=== PATIENT | male | born 1940 | race Caucasian/White ===

== ENCOUNTER 2018-11-06 17:13 | Inpatient (IN) ==
[2018-11-06] MEDS ORDERED: SODIUM CHLORIDE 0.9% 1000ML 250 ML IV ONE ×2 (17:32→21:56)
--- NOTE | 2018-11-06 17:48 | Emergency Department Note ---
History of Present Illness General Chief complaint: Weakness Stated complaint: CONFUSION, LETHERGY, DIFF. AMBULATING Time Seen by Provider: 11/06/18 17:24 History of Present Illness This patient is a 78-year-old male who presents to the emergency department via ALS for evaluation of confusion that has been noted over the last 4 days. The patient was recently discharged to the family his care from [facility] on . Since he has been home, the patient's family have noted confusion, combativeness and he has been intermittently complaining of chest pain. Currently, the patient is complaining of chest pain that is sharp in nature. It is intermittent. He denies any shortness of breath. No headache. No abdominal pain. No nausea. No fever or chills. The patient had an MVR and CABG x4 performed at [facility] in [place] 1 month ago today. Patient 's family is unsure whether it is a porcine on mechanical valve. They say that he is not on anticoagulation. They deny any recent trauma. Home Medications Home Medications Medication Instructions Recorded Confirmed Type Lactobacillus acidoph-L.bulgar 1 tab PO DAILY 11/06/18 11/06/18 History [Lactinex] acetaminophen 650 mg PO Q6H PRN 11/06/18 11/06/18 History amiodarone 400 mg PO DAILY 11/06/18 11/06/18 History aspirin [Aspirin Low Dose] 81 mg PO DAILY 11/06/18 11/06/18 History atorvastatin 40 mg PO DAILY 11/06/18 11/06/18 History calcium citrate-vitamin D3 1 tab PO DAILY 11/06/18 11/06/18 History fluoxetine 40 mg PO DAILY 11/06/18 11/06/18 History furosemide 40 mg PO DAILY 11/06/18 11/06/18 History ipratropium-albuterol 3 ml INHALATION QID 11/06/18 11/06/18 History lorazepam 0.5 mg PO Q8H PRN 11/06/18 11/06/18 History metoprolol tartrate 12.5 mg PO BID 11/06/18 11/06/18 History mirabegron [Myrbetriq] 25 mg PO DAILY 11/06/18 11/06/18 History multivitamin [Daily-Kirill] 1 tab PO DAILY 11/06/18 11/06/18 History oxycodone 5 mg PO Q4H PRN 11/06/18 11/06/18 History pantoprazole 40 mg PO DAILY 11/06/18 11/06/18 History potassium chloride 20 meq PO DAILY 11/06/18 11/06/18 History Allergies Allergy/AdvReac Type Severity Reaction Status Date / Time No Known Allergies Allergy Unverified 11/06/18 19:06 Past Med/Surg History Surgical History S/P MVR (mitral valve replacement) Social History Current Living Situation: Family Feels Safe at Home: Yes Safety Concerns: Feels Safe At This Time Smoking Status: Unknown if ever smoked Hx Alcohol Use: No Hx Substance Use: No Beliefs That Will Affect Care: None Preferred Language: Faroese Communication Ability: Effective Behavioral Psychologist Required: No Review of Systems A total of 10 systems reviewed and were otherwise negative This was performed with the patient's family who was at the bedside. Physical Exam Vital Signs Vital Signs - 24 hr 11/06/18 17:29 11/06/18 17:33 11/06/18 17:42 Temperature 36.3 C L Temperature Source Oral Sepsis Recent Fever Within 48 Hours No Sepsis New/Unexplained Change in Mental Status No Sepsis Action Taken by Nursing No Action Required Pulse Rate - Lying Pulse Rate - Sitting Pulse Rate 95 H 94 H 96 H Pulse Rate [Right Finger] Pulse Rate from SpO2 Sensor 97 H 96 H Pulse Rhythm Regular Pulse Rhythm [Right Finger] Pulse Strength Normal Pulse Strength [Right Finger] Respiratory Rate 24 22 25 H Respiratory Effort / Characteristics Non-Labored Spontaneous Respiratory Depth Normal Respiratory Pattern Regular Blood Pressure - Lying Blood Pressure - Sitting Blood Pressure 131/90 131/90 Blood Pressure [Right Arm] Blood Pressure Mean 103 103 Blood Pressure Mean [Right Arm] Blood Pressure Position Sitting Blood Pressure Position [Right Arm] Pulse Oximetry 95 93 96 Oxygen Delivery Method Room Air Oxygen Flow Rate 11/06/18 18:00 11/06/18 18:22 11/06/18 18:30 Temperature Temperature Source Sepsis Recent Fever Within 48 Hours Sepsis New/Unexplained Change in Mental Status Sepsis Action Taken by Nursing Pulse Rate - Lying Pulse Rate - Sitting Pulse Rate 94 H 93 H 92 H Pulse Rate [Right Finger] Pulse Rate from SpO2 Sensor 94 H Pulse Rhythm Pulse Rhythm [Right Finger] Pulse Strength Pulse Strength [Right Finger] Respiratory Rate 21 22 26 H Respiratory Effort / Characteristics Respiratory Depth Respiratory Pattern Blood Pressure - Lying Blood Pressure - Sitting Blood Pressure 121/83 Blood Pressure [Right Arm] Blood Pressure Mean 95 Blood Pressure Mean [Right Arm] Blood Pressure Position Blood Pressure Position [Right Arm] Pulse Oximetry 97 Oxygen Delivery Method Oxygen Flow Rate 11/06/18 18:31 11/06/18 18:32 11/06/18 19:00 Temperature Temperature Source Sepsis Recent Fever Within 48 Hours Sepsis New/Unexplained Change in Mental Status Sepsis Action Taken by Nursing Pulse Rate - Lying Pulse Rate - Sitting Pulse Rate 92 H 91 H 92 H Pulse Rate [Right Finger] Pulse Rate from SpO2 Sensor 90 92 H Pulse Rhythm Pulse Rhythm [Right Finger] Pulse Strength Pulse Strength [Right Finger] Respiratory Rate 18 20 21 Respiratory Effort / Characteristics Respiratory Depth Respiratory Pattern Blood Pressure - Lying Blood Pressure - Sitting Blood Pressure 122/81 Blood Pressure [Right Arm] Blood Pressure Mean 94 Blood Pressure Mean [Right Arm] Blood Pressure Position Blood Pressure Position [Right Arm] Pulse Oximetry 98 Oxygen Delivery Method Oxygen Flow Rate 11/06/18 19:30 11/06/18 19:31 11/06/18 19:32 Temperature Temperature Source Sepsis Recent Fever Within 48 Hours Sepsis New/Unexplained Change in Mental Status Sepsis Action Taken by Nursing Pulse Rate - Lying Pulse Rate - Sitting Pulse Rate 93 H 92 H 93 H Pulse Rate [Right Finger] Pulse Rate from SpO2 Sensor 94 H 94 H Pulse Rhythm Pulse Rhythm [Right Finger] Pulse Strength Pulse Strength [Right Finger] Respiratory Rate 25 H 29 H 16 Respiratory Effort / Characteristics Respiratory Depth Respiratory Pattern Blood Pressure - Lying Blood Pressure - Sitting Blood Pressure 128/86 Blood Pressure [Right Arm] Blood Pressure Mean 100 Blood Pressure Mean [Right Arm] Blood Pressure Position Blood Pressure Position [Right Arm] Pulse Oximetry 89 L 87 L Oxygen Delivery Method Oxygen Flow Rate 11/06/18 20:00 11/06/18 20:41 11/06/18 21:00 Temperature Temperature Source Sepsis Recent Fever Within 48 Hours Sepsis New/Unexplained Change in Mental Status Sepsis Action Taken by Nursing Pulse Rate - Lying Pulse Rate - Sitting Pulse Rate 92 H 90 88 Pulse Rate [Right Finger] Pulse Rate from SpO2 Sensor 92 H Pulse Rhythm Pulse Rhythm [Right Finger] Pulse Strength Pulse Strength [Right Finger] Respiratory Rate 22 18 19 Respiratory Effort / Characteristics Respiratory Depth Respiratory Pattern Blood Pressure - Lying Blood Pressure - Sitting Blood Pressure 119/98 Blood Pressure [Right Arm] Blood Pressure Mean 105 Blood Pressure Mean [Right Arm] Blood Pressure Position Blood Pressure Position [Right Arm] Pulse Oximetry 95 Oxygen Delivery Method Oxygen Flow Rate 11/06/18 21:30 11/06/18 22:00 11/06/18 22:01 Temperature Temperature Source Sepsis Recent Fever Within 48 Hours Sepsis New/Unexplained Change in Mental Status Sepsis Action Taken by Nursing Pulse Rate - Lying Pulse Rate - Sitting Pulse Rate 86 88 89 Pulse Rate [Right Finger] Pulse Rate from SpO2 Sensor 89 Pulse Rhythm Pulse Rhythm [Right Finger] Pulse Strength Pulse Strength [Right Finger] Respiratory Rate 20 18 16 Respiratory Effort / Characteristics Respiratory Depth Respiratory Pattern Blood Pressure - Lying Blood Pressure - Sitting Blood Pressure 136/81 Blood Pressure [Right Arm] Blood Pressure Mean 99 Blood Pressure Mean [Right Arm] Blood Pressure Position Blood Pressure Position [Right Arm] Pulse Oximetry 97 Oxygen Delivery Method Oxygen Flow Rate 11/06/18 22:31 11/06/18 22:59 11/06/18 23:01 Temperature Temperature Source Sepsis Recent Fever Within 48 Hours Sepsis New/Unexplained Change in Mental Status Sepsis Action Taken by Nursing Pulse Rate - Lying Pulse Rate - Sitting Pulse Rate 87 85 Pulse Rate [Right Finger] Pulse Rate from SpO2 Sensor Pulse Rhythm Pulse Rhythm [Right Finger] Pulse Strength Pulse Strength [Right Finger] Respiratory Rate 19 17 Respiratory Effort / Characteristics Respiratory Depth Respiratory Pattern Blood Pressure - Lying Blood Pressure - Sitting Blood Pressure 133/101 H 121/85 Blood Pressure [Right Arm] Blood Pressure Mean 111 97 Blood Pressure Mean [Right Arm] Blood Pressure Position Blood Pressure Position [Right Arm] Pulse Oximetry 100 100 Oxygen Delivery Method Nasal Cannula Nasal Cannula Nasal Cannula Oxygen Flow Rate 2 2 2 11/06/18 23:32 11/07/18 00:01 11/07/18 00:31 Temperature Temperature Source Sepsis Recent Fever Within 48 Hours Sepsis New/Unexplained Change in Mental Status Sepsis Action Taken by Nursing Pulse Rate - Lying Pulse Rate - Sitting Pulse Rate 86 85 80 Pulse Rate [Right Finger] Pulse Rate from SpO2 Sensor Pulse Rhythm Pulse Rhythm [Right Finger] Pulse Strength Pulse Strength [Right Finger] Respiratory Rate 24 24 18 Respiratory Effort / Characteristics Respiratory Depth Respiratory Pattern Blood Pressure - Lying Blood Pressure - Sitting Blood Pressure 134/118 H 137/93 125/78 Blood Pressure [Right Arm] Blood Pressure Mean 123 107 93 Blood Pressure Mean [Right Arm] Blood Pressure Position Blood Pressure Position [Right Arm] Pulse Oximetry 100 100 100 Oxygen Delivery Method Nasal Cannula Nasal Cannula Nasal Cannula Oxygen Flow Rate 2 2 2 11/07/18 01:01 11/07/18 01:31 11/07/18 02:01 Temperature Temperature Source Sepsis Recent Fever Within 48 Hours Sepsis New/Unexplained Change in Mental Status Sepsis Action Taken by Nursing Pulse Rate - Lying Pulse Rate - Sitting Pulse Rate 81 81 78 Pulse Rate [Right Finger] Pulse Rate from SpO2 Sensor Pulse Rhythm Pulse Rhythm [Right Finger] Pulse Strength Pulse Strength [Right Finger] Respiratory Rate 19 18 18 Respiratory Effort / Characteristics Respiratory Depth Respiratory Pattern Blood Pressure - Lying Blood Pressure - Sitting Blood Pressure 131/86 135/81 138/86 Blood Pressure [Right Arm] Blood Pressure Mean 101 99 103 Blood Pressure Mean [Right Arm] Blood Pressure Position Blood Pressure Position [Right Arm] Pulse Oximetry 100 100 100 Oxygen Delivery Method Nasal Cannula Nasal Cannula Room Air Oxygen Flow Rate 2 2 11/07/18 03:27 11/07/18 07:03 11/07/18 07:22 Temperature 36.3 C L 36.4 C L Temperature Source Oral Oral Sepsis Recent Fever Within 48 Hours Sepsis New/Unexplained Change in Mental Status Sepsis Action Taken by Nursing Pulse Rate - Lying Pulse Rate - Sitting Pulse Rate Pulse Rate [Right Finger] 80 79 84 Pulse Rate from SpO2 Sensor Pulse Rhythm Pulse Rhythm [Right Finger] Regular Pulse Strength Pulse Strength [Right Finger] Normal Respiratory Rate 16 16 20 Respiratory Effort / Characteristics Non-Labored Spontaneous Non-Labored Spontaneous Respiratory Depth Normal Respiratory Pattern Regular Blood Pressure - Lying Blood Pressure - Sitting Blood Pressure Blood Pressure [Right Arm] 143/84 H 117/76 Blood Pressure Mean Blood Pressure Mean [Right Arm] 103 89 Blood Pressure Position Blood Pressure Position [Right Arm] Lying Lying Pulse Oximetry 100 97 96 Oxygen Delivery Method Nasal Cannula Room Air Nasal Cannula Oxygen Flow Rate 2 2 2 11/07/18 09:58 11/07/18 10:25 11/07/18 11:12 Temperature Temperature Source Sepsis Recent Fever Within 48 Hours Sepsis New/Unexplained Change in Mental Status Sepsis Action Taken by Nursing Pulse Rate - Lying 97 H Pulse Rate - Sitting 99 H Pulse Rate Pulse Rate [Right Finger] 84 Pulse Rate from SpO2 Sensor Pulse Rhythm Pulse Rhythm [Right Finger] Pulse Strength Pulse Strength [Right Finger] Respiratory Rate 16 Respiratory Effort / Characteristics SOB on Exertion Non-Labored Spontaneous Respiratory Depth Normal Respiratory Pattern Regular Blood Pressure - Lying 111/71 Blood Pressure - Sitting 117/79 Blood Pressure Blood Pressure [Right Arm] Blood Pressure Mean Blood Pressure Mean [Right Arm] Blood Pressure Position Blood Pressure Position [Right Arm] Pulse Oximetry 95 Oxygen Delivery Method Nasal Cannula Room Air Oxygen Flow Rate 2 Constitutional WD/WN, vitals as above + acute distress (Mild discomfort) Eyes PERRL, conjunctivae normal, anicteric sclerae ENMT external ear and nose normal, oropharynx normal (Oral mucosa dry) Neck trachea midline Respiratory Few crackles noted at the right base. Otherwise clear. Cardiovascular Slightly tachycardic, no murmur auscultated Well-healing incisional scar noted over the sternum. Gastrointestinal (Abdomen) normal bowel sounds, soft, nontender, no hepatosplenomegaly Musculoskeletal Extremities: strength 5/5 throughout Skin no rashes, warm and dry Neurologic Alert and oriented to person only. Answering some questions appropriately. Does not follow commands. Course Patient was seen and examined Vital signs including blood pressure were reviewed medications list was verified with patient Labs were obtained, and a saline lock was established And EKG was performed. The patient was put on a monitor. He was ordered normal saline 250 cc normal saline bolus The patient was reassessed and resting comfortably. The family is at the bedside we thoroughly reviewed his results. They voiced understanding. The patient was ordered an additional 250 cc normal saline bolus The case was also discussed with my supervising physician who personally evaluated the patient. The patient was ordered MiraLAX p.o. A straight cath was performed. These findings were reviewed. The [facility] to evaluate the patient for further management. Administered Medications Acetaminophen (Tylenol) 650 mg PO Q6H PRN PRN Reason: Pain Stop: 12/07/18 03:08 Last Admin: 11/07/18 10:08 Dose: 650 mg Albuterol (Duoneb) 3 ml INH QIDR NIR Stop: 12/07/18 07:59 Last Admin: 11/07/18 11:11 Dose: 3 ml Admin: 11/07/18 07:03 Dose: 3 ml Amiodarone HCl (Cordarone) 400 mg PO DAILY NIR Stop: 12/07/18 08:59 Last Admin: 11/07/18 07:32 Dose: 400 mg Aspirin (Ecotrin Ectab) 81 mg PO DAILY [facility] Stop: 12/07/18 08:59 Last Admin: 11/07/18 07:32 Dose: 81 mg Atorvastatin Calcium (Lipitor) 40 mg PO DAILY NIR Stop: 12/07/18 08:59 Last Admin: 11/07/18 07:32 Dose: 40 mg Fluoxetine HCl (Prozac) 40 mg PO DAILY NIR Stop: 12/07/18 08:59 Last Admin: 11/07/18 07:33 Dose: 40 mg Heparin Sodium (Porcine) (Heparin Sodium (Porcine)) 5,000 units SQ Q12 NIR Stop: 12/07/18 08:59 Last Admin: 11/07/18 07:36 Dose: 5,000 units Ioversol (Optiray 320 100ml) 90 ml IV ONCE PRN PRN Reason: Interaction Checking Stop: 11/10/18 20:35 Last Admin: 11/06/18 20:37 Dose: 90 ml Lactobacillus Acidophilus (Floranex) 4 tab PO DAILY NIR Stop: 12/07/18 08:59 Last Admin: 11/07/18 07:32 Dose: 4 tab Magnesium Hydroxide (Milk Of Magnesia) 30 ml PO Q6H PRN PRN Reason: Constipation Stop: 12/07/18 05:22 Last Admin: 11/07/18 14:06 Dose: 30 ml Metoprolol Tartrate (Lopressor) 12.5 mg PO BID [facility] Stop: 12/07/18 08:59 Last Admin: 11/07/18 07:32 Dose: 12.5 mg Mirabegron (Myrbetriq Er) 25 mg PO DAILY [facility] Stop: 12/07/18 08:59 Last Admin: 11/07/18 07:33 Dose: 25 mg Multivitamins (Multivitamin Tab) 1 tab PO DAILY NIR Stop: 12/07/18 08:59 Last Admin: 11/07/18 07:33 Dose: 1 tab Multivitamins/Minerals (Caltrate Plus) 1 tab PO DAILY [facility] Stop: 12/07/18 08:59 Last Admin: 11/07/18 07:31 Dose: 1 tab Pantoprazole Sodium (Protonix) 40 mg PO DAILY [facility] Stop: 12/07/18 08:59 Last Admin: 11/07/18 07:33 Dose: 40 mg Potassium Chloride (Klor-Con M20) 20 meq PO DAILY [facility] Stop: 12/07/18 08:59 Last Admin: 11/07/18 07:32 Dose: 20 meq Sennosides (Senokot) 8.6 mg PO QAM NIR Stop: 12/07/18 08:59 Last Admin: 11/07/18 07:40 Dose: 8.6 mg Discontinued Medications Sodium Chloride (Nss 1000ml) 250 mls @ 999 mls/hr IV .Q16M ONE Stop: 11/06/18 17:47 Last Infusion: 11/06/18 19:08 Dose: 0 mls/hr Admin: 11/06/18 18:33 Dose: 999 mls/hr Sodium Chloride (Nss 1000ml) 250 mls @ 999 mls/hr IV .Q16M ONE Stop: 11/06/18 22:11 Last Infusion: 11/06/18 22:37 Dose: 0 mls/hr Admin: 11/06/18 22:07 Dose: 999 mls/hr Polyethylene Glycol (Miralax Powder Packet) 17 gm PO ONE ONE Stop: 11/06/18 21:42 Last Admin: 11/06/18 22:37 Dose: 17 gm Medical Decision Making Medical Records Attestation: I reviewed the patient's medical records. Home Medications Current Medication List: was personally reviewed by me Laboratory Data Attestation: I reviewed the patient's lab results. Result diagrams: 11/07/18 05:24 11/07/18 05:24 Lab Results 11/06/18 11/06/18 11/06/18 Range/Units 19:04 19:04 19:04 WBC 10.14 (4.8-10.8) K/uL RBC 3.98 L (4.7-6.1) M/uL Hgb 10.6 L (14.0-18.0) g/dL Hct 33.5 L (42-52) % MCV 84.2 (80-100) fL MCH 26.6 (25-34) pg MCHC 31.6 L (32-36) g/dL RDW Std Deviation 47.0 H (36.4-46.3) fL RDW Coeff of Juan C 15.2 H (11.5-14.5) % Plt Count 249 (130-400) K/uL MPV 10.2 (7.4-10.4) fL Immature Gran % (Auto) 0.4 % Neut % (Auto) 71.9 % Lymph % (Auto) 13.7 % Greene % (Auto) 12.8 % Eos % (Auto) 1.0 % Baso % (Auto) 0.2 % Immature Gran # (Auto) 0.04 H (0.00-0.02) K/uL Neut # (Auto) 7.29 H (1.4-6.5) K/uL Lymph # (Auto) 1.39 (1.2-3.4) K/uL Greene # (Auto) 1.30 H (0.11-0.59) K/uL Eos # (Auto) 0.10 (0-0.5) K/uL Baso # (Auto) 0.02 (0-0.2) K/uL ESR (0-14) mm/hr PT 11.8 (9.0-12.0) Seconds INR 1.2 H (0.9-1.1) Sodium 139 (136-145) mmol/L Potassium 3.5 (3.5-5.1) mmol/L Chloride 109 H (98-107) mmol/L Carbon Dioxide 23 (21-32) mmol/L Anion Gap 7.0 (3-11) BUN 18 (7-18) mg/dl Creatinine 0.67 (0.6-1.4) mg/dl Est Cr Clr Drug Dosing 90.9 ml/min Est GFR ( Amer) 106.7 Est GFR (Non-Af Amer) 92.0 BUN/Creatinine Ratio 26.6 H (10-20) Glucose 81 (70-99) mg/dl POC Lactic Acid Hank (0.90-1.70) mmol/L Calcium 7.6 L (8.5-10.1) mg/dl Phosphorus 2.7 (2.5-4.9) mg/dl Magnesium 1.7 L (1.8-2.4) mg/dl Total Bilirubin 0.3 (0.2-1) mg/dl AST 10 L (15-37) U/L ALT 13 (12-78) U/L Alkaline Phosphatase 88 (45-117) U/L Ammonia (11-32) umol/L Troponin I < 0.015 (0-0.045) ng/ml C-Reactive Protein (0-0.29) mg/dl Total Protein 6.5 (6.4-8.2) gm/dl Albumin 1.8 L (3.4-5.0) gm/dl Globulin 4.7 H (2.5-4.0) gm/dl Albumin/Globulin Ratio 0.4 L (0.9-2) TSH (0.300-4.500) uIu/ml Urine Color Urine Appearance (Clear) Urine pH (4.5-7.5) Ur Specific [place] (1.000-1.030) Urine Protein (Negative) Urine Glucose (UA) (Negative) Urine Ketones (Negative) Urine Blood (Negative) Urine Nitrite (Negative) Urine Bilirubin (Negative) Urine Urobilinogen (Negative) Ur Leukocyte Esterase (Negative) Urine WBC (Auto) (0-5) /hpf Urine RBC (Auto) (0-4) /hpf U Hyaline Cast (Auto) (0-5) /lpf U Epithel Cells (Auto) (0-5) /lpf Urine Bacteria (Auto) (Negative) 11/06/18 11/06/18 11/07/18 Range/Units 19:06 22:20 05:24 WBC 9.14 (4.8-10.8) K/uL RBC 3.73 L (4.7-6.1) M/uL Hgb 9.7 L (14.0-18.0) g/dL Hct 30.6 L (42-52) % MCV 82.0 (80-100) fL MCH 26.0 (25-34) pg MCHC 31.7 L (32-36) g/dL RDW Std Deviation 46.3 (36.4-46.3) fL RDW Coeff of Juan C 15.5 H (11.5-14.5) % Plt Count 257 (130-400) K/uL MPV 9.7 (7.4-10.4) fL Immature Gran % (Auto) 0.4 % Neut % (Auto) 67.8 % Lymph % (Auto) 16.2 % Greene % (Auto) 14.4 % Eos % (Auto) 1.0 % Baso % (Auto) 0.2 % Immature Gran # (Auto) 0.04 H (0.00-0.02) K/uL Neut # (Auto) 6.19 (1.4-6.5) K/uL Lymph # (Auto) 1.48 (1.2-3.4) K/uL Greene # (Auto) 1.32 H (0.11-0.59) K/uL Eos # (Auto) 0.09 (0-0.5) K/uL Baso # (Auto) 0.02 (0-0.2) K/uL ESR (0-14) mm/hr PT (9.0-12.0) Seconds INR (0.9-1.1) Sodium (136-145) mmol/L Potassium (3.5-5.1) mmol/L Chloride (98-107) mmol/L Carbon Dioxide (21-32) mmol/L Anion Gap (3-11) BUN (7-18) mg/dl Creatinine (0.6-1.4) mg/dl Est Cr Clr Drug Dosing ml/min Est GFR ( Amer) Est GFR (Non-Af Amer) BUN/Creatinine Ratio (10-20) Glucose (70-99) mg/dl POC Lactic Acid Hank 1.59 (0.90-1.70) mmol/L Calcium (8.5-10.1) mg/dl Phosphorus (2.5-4.9) mg/dl Magnesium (1.8-2.4) mg/dl Total Bilirubin (0.2-1) mg/dl AST (15-37) U/L ALT (12-78) U/L Alkaline Phosphatase (45-117) U/L Ammonia (11-32) umol/L Troponin I (0-0.045) ng/ml C-Reactive Protein (0-0.29) mg/dl Total Protein (6.4-8.2) gm/dl Albumin (3.4-5.0) gm/dl Globulin (2.5-4.0) gm/dl Albumin/Globulin Ratio (0.9-2) TSH (0.300-4.500) uIu/ml Urine Color Dark Yellow Urine Appearance Clear (Clear) Urine pH 5.0 (4.5-7.5) Ur Specific [place] 1.023 (1.000-1.030) Urine Protein Trace H (Negative) Urine Glucose (UA) Negative (Negative) Urine Ketones Negative (Negative) Urine Blood 1+ H (Negative) Urine Nitrite Negative (Negative) Urine Bilirubin Negative (Negative) Urine Urobilinogen Negative (Negative) Ur Leukocyte Esterase Negative (Negative) Urine WBC (Auto) 0 (0-5) /hpf Urine RBC (Auto) 0-4 (0-4) /hpf U Hyaline Cast (Auto) 0 (0-5) /lpf U Epithel Cells (Auto) 0-5 (0-5) /lpf Urine Bacteria (Auto) Negative (Negative) 11/07/18 11/07/18 11/07/18 Range/Units 05:24 05:24 05:24 WBC (4.8-10.8) K/uL RBC (4.7-6.1) M/uL Hgb (14.0-18.0) g/dL Hct (42-52) % MCV (80-100) fL MCH (25-34) pg MCHC (32-36) g/dL RDW Std Deviation (36.4-46.3) fL RDW Coeff of Juan C (11.5-14.5) % Plt Count (130-400) K/uL MPV (7.4-10.4) fL Immature Gran % (Auto) % Neut % (Auto) % Lymph % (Auto) % Greene % (Auto) % Eos % (Auto) % Baso % (Auto) % Immature Gran # (Auto) (0.00-0.02) K/uL Neut # (Auto) (1.4-6.5) K/uL Lymph # (Auto) (1.2-3.4) K/uL Greene # (Auto) (0.11-0.59) K/uL Eos # (Auto) (0-0.5) K/uL Baso # (Auto) (0-0.2) K/uL ESR 83 H (0-14) mm/hr PT (9.0-12.0) Seconds INR (0.9-1.1) Sodium 137 (136-145) mmol/L Potassium 3.7 (3.5-5.1) mmol/L Chloride 105 (98-107) mmol/L Carbon Dioxide 25 (21-32) mmol/L Anion Gap 7.0 (3-11) BUN 17 (7-18) mg/dl Creatinine 0.77 (0.6-1.4) mg/dl Est Cr Clr Drug Dosing 78.7 ml/min Est GFR ( Amer) 100.7 Est GFR (Non-Af Amer) 86.9 BUN/Creatinine Ratio 22.8 H (10-20) Glucose 96 (70-99) mg/dl POC Lactic Acid Hank (0.90-1.70) mmol/L Calcium 8.8 D (8.5-10.1) mg/dl Phosphorus (2.5-4.9) mg/dl Magnesium (1.8-2.4) mg/dl Total Bilirubin (0.2-1) mg/dl AST (15-37) U/L ALT (12-78) U/L Alkaline Phosphatase (45-117) U/L Ammonia 17.0 (11-32) umol/L Troponin I < 0.015 (0-0.045) ng/ml C-Reactive Protein (0-0.29) mg/dl Total Protein (6.4-8.2) gm/dl Albumin (3.4-5.0) gm/dl Globulin (2.5-4.0) gm/dl Albumin/Globulin Ratio (0.9-2) TSH 0.994 (0.300-4.500) uIu/ml Urine Color Urine Appearance (Clear) Urine pH (4.5-7.5) Ur Specific [place] (1.000-1.030) Urine Protein (Negative) Urine Glucose (UA) (Negative) Urine Ketones (Negative) Urine Blood (Negative) Urine Nitrite (Negative) Urine Bilirubin (Negative) Urine Urobilinogen (Negative) Ur Leukocyte Esterase (Negative) Urine WBC (Auto) (0-5) /hpf Urine RBC (Auto) (0-4) /hpf U Hyaline Cast (Auto) (0-5) /lpf U Epithel Cells (Auto) (0-5) /lpf Urine Bacteria (Auto) (Negative) 11/07/18 11/07/18 Range/Units 10:40 10:40 WBC (4.8-10.8) K/uL RBC (4.7-6.1) M/uL Hgb (14.0-18.0) g/dL Hct (42-52) % MCV (80-100) fL MCH (25-34) pg MCHC (32-36) g/dL RDW Std Deviation (36.4-46.3) fL RDW Coeff of Juan C (11.5-14.5) % Plt Count (130-400) K/uL MPV (7.4-10.4) fL Immature Gran % (Auto) % Neut % (Auto) % Lymph % (Auto) % Greene % (Auto) % Eos % (Auto) % Baso % (Auto) % Immature Gran # (Auto) (0.00-0.02) K/uL Neut # (Auto) (1.4-6.5) K/uL Lymph # (Auto) (1.2-3.4) K/uL Greene # (Auto) (0.11-0.59) K/uL Eos # (Auto) (0-0.5) K/uL Baso # (Auto) (0-0.2) K/uL ESR (0-14) mm/hr PT (9.0-12.0) Seconds INR (0.9-1.1) Sodium (136-145) mmol/L Potassium (3.5-5.1) mmol/L Chloride (98-107) mmol/L Carbon Dioxide (21-32) mmol/L Anion Gap (3-11) BUN (7-18) mg/dl Creatinine (0.6-1.4) mg/dl Est Cr Clr Drug Dosing ml/min Est GFR ( Amer) Est GFR (Non-Af Amer) BUN/Creatinine Ratio (10-20) Glucose (70-99) mg/dl POC Lactic Acid Hank (0.90-1.70) mmol/L Calcium (8.5-10.1) mg/dl Phosphorus (2.5-4.9) mg/dl Magnesium (1.8-2.4) mg/dl Total Bilirubin (0.2-1) mg/dl AST (15-37) U/L ALT (12-78) U/L Alkaline Phosphatase (45-117) U/L Ammonia (11-32) umol/L Troponin I < 0.015 (0-0.045) ng/ml C-Reactive Protein 7.72 H (0-0.29) mg/dl Total Protein (6.4-8.2) gm/dl Albumin (3.4-5.0) gm/dl Globulin (2.5-4.0) gm/dl Albumin/Globulin Ratio (0.9-2) TSH (0.300-4.500) uIu/ml Urine Color Urine Appearance (Clear) Urine pH (4.5-7.5) Ur Specific [place] (1.000-1.030) Urine Protein (Negative) Urine Glucose (UA) (Negative) Urine Ketones (Negative) Urine Blood (Negative) Urine Nitrite (Negative) Urine Bilirubin (Negative) Urine Urobilinogen (Negative) Ur Leukocyte Esterase (Negative) Urine WBC (Auto) (0-5) /hpf Urine RBC (Auto) (0-4) /hpf U Hyaline Cast (Auto) (0-5) /lpf U Epithel Cells (Auto) (0-5) /lpf Urine Bacteria (Auto) (Negative) Imaging Data Attestation: I personally reviewed and interpreted this imaging study as follows : Radiologist's Impression: CT of the head without contrast IMPRESSION: There is no hemorrhage, mass effect, or evidence of acute territorial ischemia by CT criteria. Electronically signed by: Joseph Prasad M.D. 11/06/2018 8:[address] of the abdomen and pelvis with IV contrast IMPRESSION: 1. Streak and motion compromised examination. 2. There is rectosigmoid fecal impaction and moderate to severe constipation. No bowel obstruction is identified. 3. Cholelithiasis. 4. There are 2 complex right renal lesions which measure up to 3.0 cm. The appearance is concerning for renal neoplasm. Correlation with any prior outside imaging studies is recommended. 5. There are small nonobstructing renal calculi. 6. There are trace pleural effusions with bibasilar consolidation. This could present atelectasis versus an infectious/inflammatory pneumonitis and clinical correlation will be required. 7. Cardiomegaly. 8. Large hiatal hernia. 9. The patient is status post aortobiiliac stent graft repair of an infrarenal abdominal aneurysm. The residual aneurysm sac measures 4.4 x 5.2 cm. 10. There is stranding identified around the sternotomy site, possibly related to recent surgery. Clinical correlation will required. 11. Additional findings as above. Electronically signed by: Joseph Prasad M.D. 11/06/2018 9:23 PM Chest x-ray IMPRESSION: 1. Cardiomegaly without radiographic evidence of congestive failure. 2. Hiatal hernia. 3. Suspect trace left pleural effusion. Electronically signed by: Joseph Prasad M.D. 11/06/2018 6:05 PM Dictated: 11/06/181802 Dictated: 11/06/182111 ECG Data Indication: chest pain Rate (beats per minute): 96 Rhythm: sinus tachycardia Findings: + nonspecific-ST abn Comparison ECG Date: no prior available Blood Pressure Blood Pressure Findings: Normal blood pressure MDM Narrative Differential diagnosis: Infectious etiology, neurologic abnormality, cardiac arrhythmia, CHF, electrolyte abnormality, anemia, uremia, dehydration, psychosis , among others This patient is a 78-year-old male who presents to the emergency department with complaints of weakness and increased confusion per family. On exam, the patient was initially complaining of chest pain. He then complained of some abdominal pain. Regarding his workup His EKG shows normal sinus rhythm with a nonspecific ST abnormality. I do not have a prior for comparison. His troponin is negative. The patient is only slightly anemic. I do not believe this is playing a role in his symptoms. There is no leukocytosis. Urinalysis is clear. Chest x-ray did not show any infiltrate. The etiology of his symptoms is unclear. I do not feel that the patient was safe to go back to the care of his family given his weakness and confusion. For this reason, hospitalist consultation was felt to be warranted. They will evaluate the patient for possible inpatient management. Impression & Plan Altered mental status Discharge Plan Visit Data *Final* Discharge Date/Time: 11/07/18 02:05 Chief Complaint: Weakness Stated Complaint: CONFUSION, LETHERGY, DIFF. AMBULATING ED Provider: Steven Coronel ED Midlevel Provider: Lorelei Damon Discharge Problem: Altered mental status Patient Disposition: Admitted As Inpatient Condition: Fair Discharge Instructions Interventions: ED Discharge Assessment Last Done: 11/07/18 02:05
--- NOTE | 2018-11-06 18:06 | XRay Report ---
SINGLE VIEW CHEST CLINICAL HISTORY: Syncope. FINDINGS: An AP, portable, upright chest radiograph is compared to study dated obtained. No prior silke dies are available for comparison at the time of dictation. The examination is significantly degrade d by portable technique and patient rotation. The patient is status post midline sternotomy. The hea rt is enlarged and there is atherosclerotic calcification of the thoracic aorta. The pulmonary vascul ature is noncongested. Nonspecific interstitial thickening is likely chronic. A hiatal hernia is note d at the left lung base, with associated left basilar atelectasis. A trace left pleural effusion is s uspected. No pneumothorax is seen. The skeletal structures are osteopenic. The bony thorax is grossly intact. Surgical clips are noted in the upper abdomen. IMPRESSION: 1. Cardiomegaly without radiographic evidence of congestive failure. 2. Hiatal hernia. 3. Suspect trace left pleural effusion. Electronically signed by: Joseph Prasad M.D. 11/06/2018 6:05 PM
[2018-11-06 19:14] LABS: Basophils # (auto) 0.02 K/uL (0-0.2); Basophils % (auto) 0.2 %; Hematocrit (blood only) 33.5 % (42-52); Hemoglobin 10.6 g/dL (14.0-18.0); Immature Granulocytes # (auto) 0.04 K/uL (0.00-0.02); Immature Granulocytes % (auto) 0.4 %; Lymphocytes # (auto) 1.39 K/uL (1.2-3.4); Lymphocytes % (auto) 13.7 %; Mean Corpuscular Hgb Conc 31.6 g/dL (32-36); Mean Corpuscular Volume 84.2 fL (80-100); Mean Platelet Volume 10.2 fL (7.4-10.4); Monocytes % (auto) 12.8 %; Neutrophils # (auto) 7.29 K/uL (1.4-6.5); Neutrophils % (auto) 71.9 %; Platelet Count 249 K/uL (130-400); RDW Coefficient of Variation 15.2 % (11.5-14.5); Red Blood Count 3.98 M/uL (4.7-6.1); White Blood Count 10.14 K/uL (4.8-10.8)
[2018-11-06 19:27] LABS: INR 1.2 (0.9-1.1); Prothrombin Time 11.8 Seconds (9.0-12.0)
[2018-11-06 19:30] LABS: Alanine Aminotransferase 13 U/L (12-78); Albumin Level 1.8 gm/dl (3.4-5.0); Aspartate Aminotransferase 10 U/L (15-37); BUN Creatinine Ratio 26.6 (10-20); Blood Urea Nitrogen 18 mg/dl (7-18); Calcium 7.6 mg/dl (8.5-10.1); Carbon Dioxide 23 mmol/L (21-32); Chloride 109 mmol/L (98-107); Creatinine Clr Calc Pharmacy 90.9 ml/min; Est GFR (African American) 106.7; Glucose 81 mg/dl (70-99); Magnesium 1.7 mg/dl (1.8-2.4); Potassium 3.5 mmol/L (3.5-5.1); Sodium 139 mmol/L (136-145)
[2018-11-06 19:35] LABS: Albumin Globulin Ratio 0.4 (0.9-2); Alkaline Phosphatase 88 U/L (45-117); Bilirubin,Total 0.3 mg/dl (0.2-1); Globulin 4.7 gm/dl (2.5-4.0); Phosphorus 2.7 mg/dl (2.5-4.9); Total Protein 6.5 gm/dl (6.4-8.2); Troponin I < 0.015 ng/ml (0-0.045)
--- NOTE | 2018-11-06 20:35 | CT Scan Report ---
CT SCAN OF THE BRAIN WITHOUT IV CONTRAST CLINICAL HISTORY: Change in mental status. COMPARISON STUDY: No priors. TECHNIQUE: Unenhanced axial CT scan of the brain is performed from the vertex to the skull base. A do se lowering technique was utilized adhering to the principles of ALARA. CT DOSE: 537.48 mGy.cm FINDINGS: Brain parenchyma: There are age-related involutional changes noting moderate confluent subcortical a nd periventricular microangiopathic change. There is no hemorrhage, mass effect, or evidence of acute territorial ischemia by CT criteria. Bingahm-white matter differentiation is preserved. No extra-axial fluid collection is seen. Ventricles, sulci, cisterns: Prominent secondary to involutional change. Intracranial vasculature: There is atherosclerotic calcification of the cavernous carotid and vertebr al arteries. Calvarium: Unremarkable. Sinuses and mastoids: The visualized paranasal sinuses are clear. The mastoid air cells are well pneu matized. Orbits: The bony orbits are grossly intact. IMPRESSION: There is no hemorrhage, mass effect, or evidence of acute territorial ischemia by CT maikel booth. Electronically signed by: Joseph Prasad M.D. 11/06/2018 8:33 PM
[2018-11-06] MEDS ORDERED: IOVERSOL 100ml IV PRN (20:36)
--- NOTE | 2018-11-06 21:26 | CT Scan Report ---
CT SCAN OF THE ABDOMEN AND PELVIS WITH IV CONTRAST CLINICAL HISTORY: Generalized abdominal pain. Change in mental status. COMPARISON STUDY: No priors. TECHNIQUE: Following the IV administration of 90 cc of Optiray 320, CT scan of the abdomen and pelvi s is performed from the lung bases to the proximal femora. Images are reviewed in the axial, sagittal , and coronal planes. IV contrast was administered without complication. The examination is a greater by motion artifact, as well as by streak artifact from the arms which could not be elevated above th e abdomen. A dose lowering technique was utilized adhering to the principles of ALARA. CT DOSE: 634.09 mGy.cm FINDINGS: Lung bases: The patient is status post midline sternotomy. There is stranding around the sternotomy s ite. The heart is enlarged and there is trace pericardial effusion. The coronary arteries are densely calcified. Postoperative change is suggested involving the mitral valve. There are trace pleural eff usions with bibasilar consolidation. There is a large hiatal hernia. Liver: The contrast-enhanced liver is normal in size, contour, and attenuation. There is no intrahepa tic biliary ductal dilatation. The hepatic veins and portal veins are patent. Numerous small hepatic cysts measure up to 2.1 cm. Additional subcentimeter hepatic hypodensities also likely represent cyst s but are too small for definitive characterization. Gallbladder: There are numerous calcified gallstones, with no CT evidence of acute cholecystitis. Spleen: Normal in size and attenuation. Pancreas: Unremarkable. Adrenal glands: Unremarkable. Kidneys: The contrast enhanced kidneys demonstrate cortical atrophy and are without hydronephrosis. T he kidneys enhance symmetrically. Right renal cysts measure up to 3.0 cm. A 3.0 lesion in the interpo lar kidney on image #173 and a suspected 1.8 cm partially exophytic lesion the upper pole of the righ t kidney on image #149 CT criteria for simple cyst and are concerning for renal neoplasm. There are s mall nonobstructing renal calculi. Abdominal vasculature: There is advanced atherosclerotic plaque identified throughout the abdominal a juan manuel. There has been aortobiiliac stent graft repair of an infrarenal abdominal aortic aneurysm. The residual aneurysm sac measures 4.4 x 5.2 cm (AP x transverse). 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 Stent extends into the right external iliac artery. There is thrombo sis of the right internal iliac artery with endovascular coils. Bowel: There is rectosigmoid fecal impaction and moderate to severe constipation. No bowel obstructio n is identified. The appendix is well-visualized and normal. Peritoneum: There is no intraperitoneal free air or abdominal ascites. Lymphadenopathy: None. Pelvic viscera: The prostate gland is diminutive versus surgically absent. The bladder is distended b ut otherwise normal as imaged. Postoperative change is noted in the groin bilaterally. Skeletal structures: The skeletal structures are osteopenic. Moderate to advanced lumbosacral spondyl osis is observed. There are bilateral pars defects at L5 with no anterolisthesis at L5-S1. A hemangio ma is noted in the body of L1. No lytic or blastic lesions are seen. IMPRESSION: 1. Streak and motion compromised examination. 2. There is rectosigmoid fecal impaction and moderate to severe constipation. No bowel obstruction is identified. 3. Cholelithiasis. 4. There are 2 complex right renal lesions which measure up to 3.0 cm. The appearance is concerning f or renal neoplasm. Correlation with any prior outside imaging studies is recommended. 5. There are small nonobstructing renal calculi. 6. There are trace pleural effusions with bibasilar consolidation. This could present atelectasis bradley lashell an infectious/inflammatory pneumonitis and clinical correlation will be required. 7. Cardiomegaly. 8. Large hiatal hernia. 9. The patient is status post aortobiiliac stent graft repair of an infrarenal abdominal aneurysm. Th e residual aneurysm sac measures 4.4 x 5.2 cm. 10. There is stranding identified around the sternotomy site, possibly related to recent surgery. Cli nical correlation will required. 11. Additional findings as above. Electronically signed by: Joseph Prasad M.D. 11/06/2018 9:23 PM
[2018-11-06] MEDS ORDERED: POLYETHYLENE (MIRALAX) 17 GM PACK PO ONE (21:41)
[2018-11-06 22:43] LABS: Appearance Urine Clear (Clear); Bacteria Urine Automated Negative (Negative); Bilirubin Urine Negative (Negative); Blood Urine 1+ (Negative); Cast Urine Automated 0 /lpf (0-5); Color Urine Dark Yellow; Epithelial Cell Urine Auto 0-5 /lpf (0-5); Glucose Urine UA Negative (Negative); Ketones Urine Negative (Negative); Leukocyte Esterase Urine Negative (Negative); Nitrite Urine Negative (Negative); Protein Urine Trace (Negative); RBC Urine Automated 0-4 /hpf (0-4); Specific Gravity Urine 1.023 (1.000-1.030); Urobilinogen Urine Negative (Negative); WBC Urine Automated 0 /hpf (0-5)
--- NOTE | 2018-11-07 01:34 | History & Physical Report ---
Date of Service November 07, 2018 Assessment & Plan (1) Altered mental status: Mr. Robertson is a 78 year old male with a past medical history of recent mitral valve replacement, AAA s/p repair, COPD, renal cell carcinoma, hx of CVA , depression and normal pressure hydrocephalus who presented to [facility] emergency department due to altered mental status and chest pain. Altered Mental Status -patient alert and oriented to person only, but does answer other questions appropriately -head CT without acute changes -afebrile, normal WCC, UA and CXR w/out evidence for infection. -bcx drawn and pending -check ammonia and TSH levels -unsure of baseline, family was not present at time of my examination -continue to follow -ddx: delirium, infectious, electrolyte abnormality, dehydration Chest Pain -reproducible on examination, ?related to recent surgery -EKG w/nonspecific ST wave changes -initial trop negative, will trend q6h x2 HTN/CAD -continue metoprolol, furosemide and potassium supplementation -continue amiodarone -> listed on home meds, ?unsure of why patient is on this Constipation -CT abdomen and pelvis with rectosigmoid fecal impaction and mod/severe constipation. No bowel obstruction. -s/p one dose of miralax in ED -start bowel regimen Weakness -PT/OT consult, pt will likely require placement as family is having difficulty caring for him at home History of CVA -continue aspirin and atorvastatin COPD -continue home inhaler Depression -continue fluoxetine Urinary symptoms -continue mirabegron Malignant Neoplasm of Right Kidney -listed on home problem list, and seen on CT here. -unsure if patient is pursuing treatment for this, confirm with family tomorrow Code status: Unable to confirm w/patient given AMS. Will order full code at this time. Disposition: admit to med/surg DVT prophylaxis: 5,000 heparin q12h (2) Weakness: (3) Depression: (4) History of CVA (cerebrovascular accident): (5) COPD (chronic obstructive pulmonary disease): (6) History of coronary artery bypass graft x 2: (7) Hypertension: (8) BPH (benign prostatic hyperplasia): (9) Chest pain: (10) Constipation: (11) Malignant neoplasm of right kidney: History of Present Illness Primary Care Provider: Carlyle Smiley Mr. Robertson is a 78 year old male with a past medical history of recent mitral valve replacement, AAA s/p repair, COPD, renal cell carcinoma, hx of CVA, depression and normal pressure hydrocephalus who presented to [facility] emergency department due to altered mental status and chest pain. He recently left [facility] 35 days earlier than he was meant to. Per review of chart, he exhibited multiple behavioural issues and would not comply with instructions, frequently throwing himself onto the floor. He was reportedly also combative with his . Of note, he has had a recent mitral valve replacement approximately 4 weeks ago. Per the patient, he states he has chest pain over the incision site on his chest. He states that it is worst with movement and reproducible upon palpation. He denies fever, chills, shortness of breath, diaphoresis, or radiation of the pain. He has no other complaints. Allergies Allergy/AdvReac Type Severity Reaction Status Date / Time No Known Allergies Allergy Unverified 11/06/18 19:06 Home Medications Home Medications Medication Instructions Recorded Confirmed Type Lactobacillus acidoph-L.bulgar 1 tab PO DAILY 11/06/18 11/06/18 History [Lactinex] acetaminophen 650 mg PO Q6H PRN 11/06/18 11/06/18 History amiodarone 400 mg PO DAILY 11/06/18 11/06/18 History aspirin [Aspirin Low Dose] 81 mg PO DAILY 11/06/18 11/06/18 History atorvastatin 40 mg PO DAILY 11/06/18 11/06/18 History calcium citrate-vitamin D3 1 tab PO DAILY 11/06/18 11/06/18 History fluoxetine 40 mg PO DAILY 11/06/18 11/06/18 History furosemide 40 mg PO DAILY 11/06/18 11/06/18 History ipratropium-albuterol 3 ml INHALATION QID 11/06/18 11/06/18 History lorazepam 0.5 mg PO Q8H PRN 11/06/18 11/06/18 History metoprolol tartrate 12.5 mg PO BID 11/06/18 11/06/18 History mirabegron [Myrbetriq] 25 mg PO DAILY 11/06/18 11/06/18 History multivitamin [Daily-Kirill] 1 tab PO DAILY 11/06/18 11/06/18 History oxycodone 5 mg PO Q4H PRN 11/06/18 11/06/18 History pantoprazole 40 mg PO DAILY 11/06/18 11/06/18 History potassium chloride 20 meq PO DAILY 11/06/18 11/06/18 History Past Med/Surg History Surgical History S/P MVR (mitral valve replacement) Social History Current Living Situation: Family Feels Safe at Home: Yes Safety Concerns: Feels Safe At This Time Smoking Status: Unknown if ever smoked Hx Alcohol Use: No Hx Substance Use: No Beliefs That Will Affect Care: None Preferred Language: Korean Communication Ability: Effective Behavioral Health Associate Required: No Review of Systems Constitutional: no fever and no chills Respiratory: no cough, no dyspnea and no wheezing Cardiovascular: + chest pain; no calf pain Gastrointestinal: no abdominal pain, no nausea, no vomiting and no change in bowel habits Genitourinary (Male): no dysuria Physical Exam 2 Vital Signs (Past 24 Hours): Last Vital Signs Temp 36.3 C L 11/06/18 17:33 Pulse 81 11/07/18 01:01 Resp 19 11/07/18 01:01 BP 131/86 11/07/18 01:01 Pulse Ox 100 11/07/18 01:01 Constitutional: WD/WN, vitals as above + disheveled and cooperative; not in distress Eyes: PERRL, conjunctivae normal, anicteric sclerae ENMT: external ear and nose normal, oropharynx normal Nose: + dry nasal mucous membranes Respiratory: normal respiratory effort, lungs clear to auscultation Cardiovascular: Rate/Rhythm: regular rate and regular rhythm scar from recent midline sternotomy Gastrointestinal (Abdomen): Percussion/Palpation: + abdomen tender (mildly tender throughout abdomen) and abdomen soft; no guarding and abdomen not rigid Skin: no rashes, warm and dry Neurologic: awake States that we are in [place] in the year 2019 when asked. Oriented to person only. Gross motor exam normal, no weakness noted in upper or lower extremities. Results & Data Laboratory Results Laboratory Results - last 24 hr 11/06/18 11/06/18 11/06/18 19:04 19:04 19:04 WBC 10.14 RBC 3.98 L Hgb 10.6 L Hct 33.5 L MCV 84.2 MCH 26.6 MCHC 31.6 L RDW Std Deviation 47.0 H RDW Coeff of Juan C 15.2 H Plt Count 249 MPV 10.2 Immature Gran % (Auto) 0.4 Neut % (Auto) 71.9 Lymph % (Auto) 13.7 [place] % (Auto) 12.8 Eos % (Auto) 1.0 Baso % (Auto) 0.2 Immature Gran # (Auto) 0.04 H Neut # (Auto) 7.29 H Lymph # (Auto) 1.39 [place] # (Auto) 1.30 H Eos # (Auto) 0.10 Baso # (Auto) 0.02 PT 11.8 INR 1.2 H Sodium 139 Potassium 3.5 Chloride 109 H Carbon Dioxide 23 Anion Gap 7.0 BUN 18 Creatinine 0.67 Est Cr Clr Drug Dosing 90.9 Est GFR ( Amer) 106.7 Est GFR (Non-Af Amer) 92.0 BUN/Creatinine Ratio 26.6 H Glucose 81 POC Lactic Acid Hank Calcium 7.6 L Phosphorus 2.7 Magnesium 1.7 L Total Bilirubin 0.3 AST 10 L ALT 13 Alkaline Phosphatase 88 Troponin I < 0.015 Total Protein 6.5 Albumin 1.8 L Globulin 4.7 H Albumin/Globulin Ratio 0.4 L Urine Color Urine Appearance Urine pH Ur Specific [place] Urine Protein Urine Glucose (UA) Urine Ketones Urine Blood Urine Nitrite Urine Bilirubin Urine Urobilinogen Ur Leukocyte Esterase Urine WBC (Auto) Urine RBC (Auto) U Hyaline Cast (Auto) U Epithel Cells (Auto) Urine Bacteria (Auto) 11/06/18 11/06/18 19:06 22:20 WBC RBC Hgb Hct MCV MCH MCHC RDW Std Deviation RDW Coeff of Juan C Plt Count MPV Immature Gran % (Auto) Neut % (Auto) Lymph % (Auto) [place] % (Auto) Eos % (Auto) Baso % (Auto) Immature Gran # (Auto) Neut # (Auto) Lymph # (Auto) [place] # (Auto) Eos # (Auto) Baso # (Auto) PT INR Sodium Potassium Chloride Carbon Dioxide Anion Gap BUN Creatinine Est Cr Clr Drug Dosing Est GFR ( Amer) Est GFR (Non-Af Amer) BUN/Creatinine Ratio Glucose POC Lactic Acid Hank 1.59 Calcium Phosphorus Magnesium Total Bilirubin AST ALT Alkaline Phosphatase Troponin I Total Protein Albumin Globulin Albumin/Globulin Ratio Urine Color Dark Yellow Urine Appearance Clear Urine pH 5.0 Ur Specific [place] 1.023 Urine Protein Trace H Urine Glucose (UA) Negative Urine Ketones Negative Urine Blood 1+ H Urine Nitrite Negative Urine Bilirubin Negative Urine Urobilinogen Negative Ur Leukocyte Esterase Negative Urine WBC (Auto) 0 Urine RBC (Auto) 0-4 U Hyaline Cast (Auto) 0 U Epithel Cells (Auto) 0-5 Urine Bacteria (Auto) Negative Medications Administered Current Inpatient Medications Acetaminophen (Tylenol) 650 mg PO Q6H PRN PRN Reason: Pain Stop: 12/07/18 03:08 Albuterol (Duoneb) 3 ml INH QIDR NIR Stop: 12/07/18 07:59 Amiodarone HCl (Cordarone) 400 mg PO DAILY NIR Stop: 12/07/18 08:59 Aspirin (Ecotrin Ectab) 81 mg PO DAILY NIR Stop: 12/07/18 08:59 Atorvastatin Calcium (Lipitor) 40 mg PO DAILY NIR Stop: 12/07/18 08:59 Fluoxetine HCl (Prozac) 40 mg PO DAILY NIR Stop: 12/07/18 08:59 Heparin Sodium (Porcine) (Heparin Sodium (Porcine)) 5,000 units SQ Q12 NIR Stop: 12/07/18 08:59 Ioversol (Optiray 320 100ml) 90 ml IV ONCE PRN PRN Reason: Interaction Checking Stop: 11/10/18 20:35 Last Admin: 11/06/18 20:37 Dose: 90 ml Lactobacillus Acidophilus (Floranex) 4 tab PO DAILY NIR Stop: 12/07/18 08:59 Metoprolol Tartrate (Lopressor) 12.5 mg PO BID NIR Stop: 12/07/18 08:59 Mirabegron (Myrbetriq Er) 25 mg PO DAILY [facility] Stop: 12/07/18 08:59 Multivitamins (Multivitamin Tab) 1 tab PO DAILY [facility] Stop: 12/07/18 08:59 Multivitamins/Minerals (Caltrate Plus) 1 tab PO DAILY [facility] Stop: 12/07/18 08:59 Oxycodone HCl (Roxicodone Immediate Rel) 5 mg PO Q4H PRN PRN Reason: MODERATE TO SEVERE PAIN Stop: 11/21/18 03:08 Pantoprazole Sodium (Protonix) 40 mg PO DAILY NIR Stop: 12/07/18 08:59 Potassium Chloride (Klor-Con M20) 20 meq PO DAILY NIR Stop: 12/07/18 08:59 Supervising Physician Co-Signing Physician Notes 78 y/o M Hx MVR, AAA - repair, COPD, renal cell CA, CVA, depression, NPH, possible dementia with recent combative behavioral issues. Presents with worsening MS and had apparently c/o CP earlier as well. CP is reproducible and may be related to recent MVR. It appears that his AMS may be more a gradual functional decline rather than acute delirium. We do not have any evidence of infection or abnormalities on CT head. OE AAO x 1-2 S1,2 R +M CTAB NT, ND Confused and without focal deficits P: This pt should be evaluated by mental health - ammonia and TSH are pending on admission - contract MRI could also be considered. Functional decline may have been precipitated by major surgery which would not be uncommon. Ultimately, the pt is likely going to require placement. Pt will continue ASA, Statin, B archana due to Hx of CVA Cont inhalers for COPD - no evidence of acute exacerbation Resident Activity Tracking Resident Involvement: Resident Care Provided Care Provided: Adult Hospital Medicine
[2018-11-07] MEDS ORDERED: POLYETHYLENE (MIRALAX) 17 GM PACK PO PRN (05:22)
[2018-11-07] MEDS ORDERED: MAGNESIUM HYDROXIDE SUSP 30 ML UDC PO PRN (05:23)
[2018-11-07] MEDS ORDERED: DOCUSATE SODIUM 100 MG CAP PO PRN (05:23)
[2018-11-07 05:33] LABS: Basophils # (auto) 0.02 K/uL (0-0.2); Basophils % (auto) 0.2 %; Eosinophils # (auto) 0.09 K/uL (0-0.5); Hematocrit (blood only) 30.6 % (42-52); Hemoglobin 9.7 g/dL (14.0-18.0); Immature Granulocytes # (auto) 0.04 K/uL (0.00-0.02); Immature Granulocytes % (auto) 0.4 %; Lymphocytes # (auto) 1.48 K/uL (1.2-3.4); Lymphocytes % (auto) 16.2 %; Mean Corpuscular Hgb Conc 31.7 g/dL (32-36); Mean Platelet Volume 9.7 fL (7.4-10.4); Monocytes # (auto) 1.32 K/uL (0.11-0.59); Monocytes % (auto) 14.4 %; Neutrophils # (auto) 6.19 K/uL (1.4-6.5); Neutrophils % (auto) 67.8 %; Platelet Count 257 K/uL (130-400); RDW Coefficient of Variation 15.5 % (11.5-14.5); RDW Standard Deviation 46.3 fL (36.4-46.3); Red Blood Count 3.73 M/uL (4.7-6.1); White Blood Count 9.14 K/uL (4.8-10.8)
[2018-11-07 05:49] LABS: BUN Creatinine Ratio 22.8 (10-20); Blood Urea Nitrogen 17 mg/dl (7-18); Calcium 8.8 mg/dl (8.5-10.1); Carbon Dioxide 25 mmol/L (21-32); Chloride 105 mmol/L (98-107); Creatinine Clr Calc Pharmacy 78.7 ml/min; Est GFR (African American) 100.7; Est GFR (Non-African American) 86.9; Glucose 96 mg/dl (70-99); Potassium 3.7 mmol/L (3.5-5.1); Sodium 137 mmol/L (136-145)
[2018-11-07 06:00] LABS: Troponin I < 0.015 ng/ml (0-0.045)
[2018-11-07] MEDS: ALBUT/IPRATROP 3MG/0.5MG NEB 3 ML VIAL INH SCH ×4 (07:03→19:16)
[2018-11-07] MEDS: CALCIUM 600MG + VIT D 400 IU TAB PO SCH (07:31)
[2018-11-07] MEDS: LACTOBACILLUS ACIDOPHILUS (FLORANEX) TAB PO SCH (07:32)
[2018-11-07] MEDS: AMIODARONE 200 MG TAB PO SCH (07:32)
[2018-11-07] MEDS: ASPIRIN 81 MG ECTAB PO SCH (07:32)
[2018-11-07] MEDS: POTASSIUM CHLORIDE 20 MEQ TABCR PO SCH (07:32)
[2018-11-07] MEDS: ATORVASTATIN 40 MG TAB PO SCH (07:32)
[2018-11-07] MEDS: METOPROLOL TARTRATE 25 MG TAB PO SCH ×2 (07:32→22:09)
[2018-11-07] MEDS: FLUOXETINE HCL 20 MG CAP PO SCH (07:33)
[2018-11-07] MEDS: MULTIVITAMIN TAB PO SCH (07:33)
[2018-11-07] MEDS: PANTOprazole 40 MG TAB PO SCH (07:33)
[2018-11-07] MEDS: MIRABEGRON ER 25 MG TAB PO SCH (07:33)
[2018-11-07] MEDS: HEPARIN SOD 5,000 UNIT/0.5 ML VIAL SQ SCH ×3 (07:34→22:09)
[2018-11-07] MEDS: SENNA 8.6 MG TAB PO SCH (07:40)
[2018-11-07] MEDS: ACETAMINOPHEN 325 MG TAB PO PRN (10:08)
[2018-11-08] MEDS: ALBUT/IPRATROP 3MG/0.5MG NEB 3 ML VIAL INH SCH ×4 (07:04→19:03)
[2018-11-08] MEDS: LACTOBACILLUS ACIDOPHILUS (FLORANEX) TAB PO SCH (08:39)
[2018-11-08] MEDS: AMIODARONE 200 MG TAB PO SCH (08:39)
[2018-11-08] MEDS: ASPIRIN 81 MG ECTAB PO SCH (08:39)
[2018-11-08] MEDS: CALCIUM 600MG + VIT D 400 IU TAB PO SCH (08:39)
[2018-11-08] MEDS: FLUOXETINE HCL 20 MG CAP PO SCH (08:40)
[2018-11-08] MEDS: MULTIVITAMIN TAB PO SCH (08:40)
[2018-11-08] MEDS: METOPROLOL TARTRATE 25 MG TAB PO SCH ×2 (08:40→21:39)
[2018-11-08] MEDS: POTASSIUM CHLORIDE 20 MEQ TABCR PO SCH (08:40)
[2018-11-08] MEDS: OXYCODONE HCL IR 5 MG TAB (IMMEDIATE RELEASE) PO PRN (08:40)
[2018-11-08] MEDS: SENNA 8.6 MG TAB PO SCH (08:40)
[2018-11-08] MEDS: HEPARIN SOD 5,000 UNIT/0.5 ML VIAL SQ SCH ×2 (08:40→21:39)
[2018-11-08] MEDS: MIRABEGRON ER 25 MG TAB PO SCH (08:40)
[2018-11-08] MEDS: ATORVASTATIN 40 MG TAB PO SCH (08:40)
[2018-11-08] MEDS: PANTOprazole 40 MG TAB PO SCH (08:41)
--- NOTE | 2018-11-08 12:06 | Family Medicine Progress Note ---
Date of Service November 08, 2018 Assessment & Plan (1) Altered mental status: Mr. Robertson is a 78 year old male with a past medical history of recent mitral valve replacement, AAA s/p repair, COPD, renal cell carcinoma, hx of CVA, depression and normal pressure hydrocephalus who presented to [facility] emergency department due to altered mental status and chest pain. Altered Mental Status -clinically improving, alert to person, place, time -etiology unclear -Head CT without acute changes -afebrile, normal WCC, UA and CXR w/out evidence for infection. -bcx NGTD , Continue to follow -ammonia and TSH levels unremarkable -no cognitive defcits per patients daughter at baseline -continue to follow -ddx: delirium, infectious, electrolyte abnormality, dehydration Chest Pain -reproducible on examination in region of sternotomy -ongoing per patient's daughter since recent surgery -EKG w/nonspecific ST wave changes -trop levels unremarkable -findings not suspicious for ACS -Given patient's neg blood cx, neg wht , afebrile status, post-op infection less likely - ECHO ordered to eval for endocarditis though unlikley HTN/CAD -continue metoprolol, furosemide and potassium supplementation -continue amiodarone though h/o arrhythmia unconfirmed Abdominal discomfort - possibly due to constipation - given cholelithiasis on CT, will assess with RUQ ultrasounds to evaluate cholecystitis -CT abdomen and pelvis with rectosigmoid fecal impaction and mod/severe constipation. No bowel obstruction. -s/p one dose of miralax in ED -continue bowel regimen Weakness -PT/OT consult, pt will likely require placement as family is having difficulty caring for him at home History of CVA -continue aspirin and atorvastatin COPD -continue home inhaler Depression -continue fluoxetine Urinary symptoms -continue mirabegron Malignant Neoplasm of Right Kidney -listed on home problem list, and seen on CT here. -unsure if patient is pursuing treatment for this, confirm with family tomorrow Code status: Unable to confirm w/patient given AMS. Will order full code at this time. Disposition: admit to med/surg DVT prophylaxis: 5,000 heparin q12h (2) Weakness: (3) Depression: (4) History of CVA (cerebrovascular accident): (5) COPD (chronic obstructive pulmonary disease): (6) History of coronary artery bypass graft x 2: (7) Hypertension: (8) BPH (benign prostatic hyperplasia): (9) Chest pain: (10) Constipation: (11) Malignant neoplasm of right kidney: Supervising Physician Co-Signing Physician Notes I saw the patient with Dr. Monk and confirmed torres portions of the history and physical exam. I agree with the documentation as noted above with the following exceptions. Upon our examination today, the patient is awake and alert -he is oriented to place. While there were behavioral issues as described in the prehospital setting and prior to his admission, he is calm today. We did talk about some of the behaviors he had exhibited while at home prior to his admission and he does not recall these behaviors. Upon examination, he has tenderness both in the sternum along his sternal incision and also increased tenderness in the epigastric and right upper quadrant. He remains afebrile. Hemodynamically stable. He does have marked elevation of his CRP and sedimentation rate. Recommend echocardiogram, consider pericarditis, endocarditis to be less likely. Recommend ultrasound of gallbladder; cholelithiasis as darkened by CT scan but ultrasound to better evaluate for acute wall thickening that would explain his discomfort. Certainly infectious process could cause his acute delirium; cultures are pending, other than the inflammatory markers as noted, no other signs to suggest systemic infection. Family was interested in both a psychiatry evaluation and a hospice referral. Psychiatry evaluation may be indicated once we rule out metabolic causes of his behavioral changes. I do not think he has a hospice diagnosis -after talking with family it sounds as if they are looking more for help with care and they did not completely understand medications for hospice benefits. Subjective No acute events overnight, Patient reports continued substernal chest pain 04/21 however per nurse, he had refused pain medicine overnight. He denies sob, cough, fevers, chills, nausea. vomiting, abdominal pain Constitutional: no fever and no chills Respiratory: no cough and no dyspnea Cardiovascular: + chest pain; no syncope, no edema and no calf pain Gastrointestinal: no abdominal pain, no nausea, no vomiting and no change in bowel habits Integumentary: no rash and no lesions Physical Exam Vital Signs (Past 24 Hours): Last Vital Signs Temp 36.8 C 11/08/18 07:13 Pulse 96 H 11/08/18 11:11 Resp 18 11/08/18 11:11 BP 153/85 H 11/08/18 07:13 Pulse Ox 97 11/08/18 11:11 Constitutional: WD/WN, vitals as above no acute distress Eyes: PERRL and EOM intact bilaterally ENMT: external ear and nose normal, oropharynx normal Neck: trachea midline, no thyromegaly Respiratory: normal respiratory effort, lungs clear to auscultation Cardiovascular: RRR, no murmur, no edema Chest (Breasts): Additional Comments: s/p sternotomy, tendernessto palpation along incision Gastrointestinal (Abdomen): Inspection/Auscultation: abdomen normal to inspection and normal bowel sounds Percussion/Palpation: + abdomen tender (ruq) and abdomen soft; no guarding, abdomen not rigid, no hepatosplenomegaly and no hepatomegaly Musculoskeletal: Head/Neck/Chest: normocephalic and head atraumatic Skin: no rashes, warm and dry Neurologic: PERRL, EOMI, accommodation nl, no face palsy, no dysarthria CN's II-XI intact bilaterally and awake Psychiatric: Orientation: alert, oriented to person, oriented to place and cooperative Results & Data Laboratory Results Laboratory Results WBC 10.15 K/uL (4.8-10.8) 11/08/18 13:53 RBC 3.65 M/uL (4.7-6.1) L 11/08/18 13:53 Hgb 9.6 g/dL (14.0-18.0) L 11/08/18 13:53 Hct 30.6 % (42-52) L 11/08/18 13:53 MCV 83.8 fL (80-100) 11/08/18 13:53 MCH 26.3 pg (25-34) 11/08/18 13:53 MCHC 31.4 g/dL (32-36) L 11/08/18 13:53 RDW Std Deviation 48.1 fL (36.4-46.3) H 11/08/18 13:53 RDW Coeff of Juan C 15.6 % (11.5-14.5) H 11/08/18 13:53 Plt Count 268 K/uL (130-400) 11/08/18 13:53 MPV 9.6 fL (7.4-10.4) 11/08/18 13:53 Immature Gran % (Auto) 0.4 % 11/08/18 13:53 Neut % (Auto) 65.4 % 11/08/18 13:53 Lymph % (Auto) 18.5 % 11/08/18 13:53 [place] % (Auto) 14.3 % 11/08/18 13:53 Eos % (Auto) 1.2 % 11/08/18 13:53 Baso % (Auto) 0.2 % 11/08/18 13:53 Immature Gran # (Auto) 0.04 K/uL (0.00-0.02) H 11/08/18 13:53 Neut # (Auto) 6.64 K/uL (1.4-6.5) H 11/08/18 13:53 Lymph # (Auto) 1.88 K/uL (1.2-3.4) 11/08/18 13:53 [place] # (Auto) 1.45 K/uL (0.11-0.59) H 11/08/18 13:53 Eos # (Auto) 0.12 K/uL (0-0.5) 11/08/18 13:53 Baso # (Auto) 0.02 K/uL (0-0.2) 11/08/18 13:53 ESR 83 mm/hr (0-14) H 11/07/18 05:24 PT 11.8 Seconds (9.0-12.0) 11/06/18 19:04 INR 1.2 (0.9-1.1) H 11/06/18 19:04 Sodium 137 mmol/L (136-145) 11/08/18 13:53 Potassium 4.2 mmol/L (3.5-5.1) 11/08/18 13:53 Chloride 106 mmol/L (98-107) 11/08/18 13:53 Carbon Dioxide 27 mmol/L (21-32) 11/08/18 13:53 Anion Gap 4.0 (3-11) 11/08/18 13:53 BUN 19 mg/dl (7-18) H 11/08/18 13:53 Creatinine 0.97 mg/dl (0.6-1.4) 11/08/18 13:53 Est Cr Clr Drug Dosing 62.5 ml/min 11/08/18 13:53 Est GFR ( Amer) 86.3 11/08/18 13:53 Est GFR (Non-Af Amer) 74.5 11/08/18 13:53 BUN/Creatinine Ratio 19.2 (10-20) 11/08/18 13:53 Glucose 92 mg/dl (70-99) 11/08/18 13:53 POC Lactic Acid Hank 1.59 mmol/L (0.90-1.70) 11/06/18 19:06 Calcium 9.0 mg/dl (8.5-10.1) 11/08/18 13:53 Phosphorus 2.7 mg/dl (2.5-4.9) 11/06/18 19:04 Magnesium 1.7 mg/dl (1.8-2.4) L 11/06/18 19:04 Total Bilirubin 0.3 mg/dl (0.2-1) 11/06/18 19:04 AST 10 U/L (15-37) L 11/06/18 19:04 ALT 13 U/L (12-78) 11/06/18 19:04 Alkaline Phosphatase 88 U/L (45-117) 11/06/18 19:04 Ammonia 17.0 umol/L (11-32) 11/07/18 05:24 Troponin I < 0.015 ng/ml (0-0.045) 11/07/18 10:40 C-Reactive Protein 7.72 mg/dl (0-0.29) H 11/07/18 10:40 Total Protein 6.5 gm/dl (6.4-8.2) 11/06/18 19:04 Albumin 1.8 gm/dl (3.4-5.0) L 11/06/18 19:04 Globulin 4.7 gm/dl (2.5-4.0) H 11/06/18 19:04 Albumin/Globulin Ratio 0.4 (0.9-2) L 11/06/18 19:04 TSH 0.994 uIu/ml (0.300-4.500) 11/07/18 05:24 Urine Color Dark Yellow 11/06/18 22:20 Urine Appearance Clear (Clear) 11/06/18 22:20 Urine pH 5.0 (4.5-7.5) 11/06/18 22:20 Ur Specific [place] 1.023 (1.000-1.030) 11/06/18 22:20 Urine Protein Trace (Negative) H 11/06/18 22:20 Urine Glucose (UA) Negative (Negative) 11/06/18 22:20 Urine Ketones Negative (Negative) 11/06/18 22:20 Urine Blood 1+ (Negative) H 11/06/18 22:20 Urine Nitrite Negative (Negative) 11/06/18 22:20 Urine Bilirubin Negative (Negative) 11/06/18 22:20 Urine Urobilinogen Negative (Negative) 11/06/18 22:20 Ur Leukocyte Esterase Negative (Negative) 11/06/18 22:20 Urine WBC (Auto) 0 /hpf (0-5) 11/06/18 22:20 Urine RBC (Auto) 0-4 /hpf (0-4) 11/06/18 22:20 U Hyaline Cast (Auto) 0 /lpf (0-5) 11/06/18 22:20 U Epithel Cells (Auto) 0-5 /lpf (0-5) 11/06/18 22:20 Urine Bacteria (Auto) Negative (Negative) 11/06/18 22:20 Medications Administered Acetaminophen (Tylenol) 650 mg PO Q6H PRN PRN Reason: Pain Stop: 12/07/18 03:08 Last Admin: 11/07/18 10:08 Dose: 650 mg Documented by: [id number] Albuterol (Duoneb) 3 ml INH QIDR NIR Stop: 12/07/18 07:59 Last Admin: 11/08/18 15:25 Dose: 3 ml Documented by: [id number] Admin: 11/08/18 11:11 Dose: 3 ml Documented by: [id number] Admin: 11/08/18 07:04 Dose: 3 ml Documented by: [id number] Admin: 11/07/18 19:16 Dose: 3 ml Documented by: [id number] Admin: 11/07/18 15:23 Dose: 3 ml Documented by: [id number] Admin: 11/07/18 11:11 Dose: 3 ml Documented by: [id number] Admin: 11/07/18 07:03 Dose: 3 ml Documented by: [id number] Amiodarone HCl (Cordarone) 400 mg PO DAILY [facility] Stop: 12/07/18 08:59 Last Admin: 11/08/18 08:39 Dose: 400 mg Documented by: [id number] Admin: 11/07/18 07:32 Dose: 400 mg Documented by: [id number] Aspirin (Ecotrin Ectab) 81 mg PO DAILY [facility] Stop: 12/07/18 08:59 Last Admin: 11/08/18 08:39 Dose: 81 mg Documented by: [id number] Admin: 11/07/18 07:32 Dose: 81 mg Documented by: [id number] Atorvastatin Calcium (Lipitor) 40 mg PO DAILY [facility] Stop: 12/07/18 08:59 Last Admin: 11/08/18 08:40 Dose: 40 mg Documented by: [id number] Admin: 11/07/18 07:32 Dose: 40 mg Documented by: [id number] Fluoxetine HCl (Prozac) 40 mg PO DAILY [facility] Stop: 12/07/18 08:59 Last Admin: 11/08/18 08:40 Dose: 40 mg Documented by: [id number] Admin: 11/07/18 07:33 Dose: 40 mg Documented by: [id number] Heparin Sodium (Porcine) (Heparin Sodium (Porcine)) 5,000 units SQ Q12 [facility] Stop: 12/07/18 08:59 Last Admin: 11/08/18 08:40 Dose: 5,000 units Documented by: [id number] Cosigned by: [id number] Admin: 11/07/18 22:09 Dose: 5,000 units Documented by: [id number] Cosigned by: [id number] Admin: 11/07/18 07:36 Dose: 5,000 units Documented by: [id number] Cosigned by: [id number] Ioversol (Optiray 320 100ml) 90 ml IV ONCE PRN PRN Reason: Interaction Checking Stop: 11/10/18 20:35 Last Admin: 11/06/18 20:37 Dose: 90 ml Documented by: [id number] Lactobacillus Acidophilus (Floranex) 4 tab PO DAILY [facility] Stop: 12/07/18 08:59 Last Admin: 11/08/18 08:39 Dose: 4 tab Documented by: [id number] Admin: 11/07/18 07:32 Dose: 4 tab Documented by: [id number] Magnesium Hydroxide (Milk Of Magnesia) 30 ml PO Q6H PRN PRN Reason: Constipation Stop: 12/07/18 05:22 Last Admin: 11/07/18 14:06 Dose: 30 ml Documented by: [id number] Metoprolol Tartrate (Lopressor) 12.5 mg PO BID [facility] Stop: 12/07/18 08:59 Last Admin: 11/08/18 08:40 Dose: 12.5 mg Documented by: [id number] Admin: 11/07/18 22:09 Dose: 12.5 mg Documented by: [id number] Admin: 11/07/18 07:32 Dose: 12.5 mg Documented by: [id number] Mirabegron (Myrbetriq Er) 25 mg PO DAILY NIR Stop: 12/07/18 08:59 Last Admin: 11/08/18 08:40 Dose: 25 mg Documented by: [id number] Admin: 11/07/18 07:33 Dose: 25 mg Documented by: [id number] Multivitamins (Multivitamin Tab) 1 tab PO DAILY NIR Stop: 12/07/18 08:59 Last Admin: 11/08/18 08:40 Dose: 1 tab Documented by: [id number] Admin: 11/07/18 07:33 Dose: 1 tab Documented by: [id number] Multivitamins/Minerals (Caltrate Plus) 1 tab PO DAILY NIR Stop: 12/07/18 08:59 Last Admin: 11/08/18 08:39 Dose: 1 tab Documented by: [id number] Admin: 11/07/18 07:31 Dose: 1 tab Documented by: [id number] Oxycodone HCl (Roxicodone Immediate Rel) 5 mg PO Q4H PRN PRN Reason: MODERATE TO SEVERE PAIN Stop: 11/21/18 03:08 Last Admin: 11/08/18 08:40 Dose: 5 mg Documented by: [id number] Pantoprazole Sodium (Protonix) 40 mg PO DAILY NIR Stop: 12/07/18 08:59 Last Admin: 11/08/18 08:41 Dose: 40 mg Documented by: [id number] Admin: 11/07/18 07:33 Dose: 40 mg Documented by: [id number] Potassium Chloride (Klor-Con M20) 20 meq PO DAILY NIR Stop: 12/07/18 08:59 Last Admin: 11/08/18 08:40 Dose: 20 meq Documented by: [id number] Admin: 11/07/18 07:32 Dose: 20 meq Documented by: [id number] Sennosides (Senokot) 8.6 mg PO QAM NRI Stop: 12/07/18 08:59 Last Admin: 11/08/18 08:40 Dose: 8.6 mg Documented by: [id number] Admin: 11/07/18 07:40 Dose: 8.6 mg Documented by: [id number] Discontinued Medications Sodium Chloride (Nss 1000ml) 250 mls @ 999 mls/hr IV .Q16M ONE Stop: 11/06/18 17:47 Last Infusion: 11/06/18 19:08 Dose: 0 mls/hr Documented by: [id number] Admin: 11/06/18 18:33 Dose: 999 mls/hr Documented by: [id number] Sodium Chloride (Nss 1000ml) 250 mls @ 999 mls/hr IV .Q16M ONE Stop: 11/06/18 22:11 Last Infusion: 11/06/18 22:37 Dose: 0 mls/hr Documented by: [id number] Admin: 11/06/18 22:07 Dose: 999 mls/hr Documented by: [id number] Polyethylene Glycol (Miralax Powder Packet) 17 gm PO ONE ONE Stop: 11/06/18 21:42 Last Admin: 11/06/18 22:37 Dose: 17 gm Documented by: [id number] Resident Activity Tracking Resident Involvement: Resident Care Provided Care Provided: Adult Hospital Medicine
[2018-11-08 14:06] LABS: Basophils # (auto) 0.02 K/uL (0-0.2); Basophils % (auto) 0.2 %; Eosinophils # (auto) 0.12 K/uL (0-0.5); Eosinophils % (auto) 1.2 %; Hematocrit (blood only) 30.6 % (42-52); Hemoglobin 9.6 g/dL (14.0-18.0); Immature Granulocytes # (auto) 0.04 K/uL (0.00-0.02); Immature Granulocytes % (auto) 0.4 %; Lymphocytes # (auto) 1.88 K/uL (1.2-3.4); Lymphocytes % (auto) 18.5 %; Mean Corpuscular Hgb Conc 31.4 g/dL (32-36); Mean Corpuscular Volume 83.8 fL (80-100); Mean Platelet Volume 9.6 fL (7.4-10.4); Monocytes # (auto) 1.45 K/uL (0.11-0.59); Monocytes % (auto) 14.3 %; Neutrophils # (auto) 6.64 K/uL (1.4-6.5); Neutrophils % (auto) 65.4 %; Platelet Count 268 K/uL (130-400); RDW Coefficient of Variation 15.6 % (11.5-14.5); RDW Standard Deviation 48.1 fL (36.4-46.3); Red Blood Count 3.65 M/uL (4.7-6.1); White Blood Count 10.15 K/uL (4.8-10.8)
[2018-11-08 14:26] LABS: BUN Creatinine Ratio 19.2 (10-20); Creatinine Clr Calc Pharmacy 62.5 ml/min; Est GFR (African American) 86.3; Est GFR (Non-African American) 74.5; Potassium 4.2 mmol/L (3.5-5.1)
--- NOTE | 2018-11-08 20:10 | Ultrasound Report ---
US abdomen limited CLINICAL HISTORY: 78 years-old Male presenting with ruq pain, indeterminate right renal lesion with c oncern for neoplasm. TECHNIQUE: Real-time grayscale and limited color Doppler ultrasound imaging of the abdomen limited to the right upper quadrant was performed. COMPARISON: CT from 11/06/2018. FINDINGS: Pancreas: Largely obscured due to overlying bowel gas. Liver: Hyperechogenic parenchyma with heterogeneous echotexture, likely indicating fibrosis or steato sis. The liver measures 15.7 cm in maximal sagittal dimension. Hepatic cysts noted measuring up to 2. 2 cm. Main portal vein patent with normal directional flow. Biliary: No intrahepatic biliary ductal dilatation. Common bile duct measures up to 3 mm in diameter. Gallbladder: Gallstones. The gallbladder wall is top normal in thickness. No abnormal gallbladder dis tention or pericholecystic fluid or inflammatory change. Sonographic Muhammad's sign negative. Right kidney: Mildly hyperechoic interpolar mass measuring 2.5 x 1.9 x 2.4 cm. There are also renal c ysts evident. No hydronephrosis. Ascites: None. Other: None. IMPRESSION: 1. Heterogeneous liver parenchyma may suggest underlying fibrosis or steatosis. 2. Cholelithiasis. No convincing evidence of cholecystitis. 3. Solid 2.5 cm right renal mass. This is most concerning for renal cell carcinoma. Urologic consult ation advised. This would be best demonstrated with contrast-enhanced renal MRI. Electronically signed by: Skip Anderson M.D. 11/08/2018 8:09 PM
[2018-11-09] MEDS: POTASSIUM CHLORIDE 20 MEQ TABCR PO SCH (07:14)
[2018-11-09] MEDS: HEPARIN SOD 5,000 UNIT/0.5 ML VIAL SQ SCH ×2 (07:14→20:29)
[2018-11-09] MEDS: SENNA 8.6 MG TAB PO SCH (07:14)
[2018-11-09] MEDS: ASPIRIN 81 MG ECTAB PO SCH (07:15)
[2018-11-09] MEDS: METOPROLOL TARTRATE 25 MG TAB PO SCH ×2 (07:15→20:29)
[2018-11-09] MEDS: FLUOXETINE HCL 20 MG CAP PO SCH (07:15)
[2018-11-09] MEDS: AMIODARONE 200 MG TAB PO SCH (07:15)
[2018-11-09] MEDS: LACTOBACILLUS ACIDOPHILUS (FLORANEX) TAB PO SCH (07:15)
[2018-11-09] MEDS: MULTIVITAMIN TAB PO SCH (07:15)
[2018-11-09] MEDS: ATORVASTATIN 40 MG TAB PO SCH (07:15)
[2018-11-09] MEDS: MIRABEGRON ER 25 MG TAB PO SCH (07:15)
[2018-11-09] MEDS: PANTOprazole 40 MG TAB PO SCH (07:15)
[2018-11-09] MEDS: CALCIUM 600MG + VIT D 400 IU TAB PO SCH (07:16)
[2018-11-09] MEDS: ALBUT/IPRATROP 3MG/0.5MG NEB 3 ML VIAL INH SCH ×4 (07:42→19:31)
--- NOTE | 2018-11-09 10:03 | Family Medicine Progress Note ---
Date of Service November 09, 2018 Assessment & Plan (1) Altered mental status: Mr. Robertson is a 78 year old male with a past medical history of recent mitral valve replacement, AAA s/p repair, COPD, renal cell carcinoma, hx of CVA, depression and normal pressure hydrocephalus who presented to [facility] emergency department due to altered mental status and chest pain. Altered Mental Status -alert to person, place, time, appears to be at cognitive baseline -initial etiology unclear -Head CT without acute changes -afebrile, normal WCC, UA and CXR w/out evidence for infection. -bcx NGTD , Continue to follow -ammonia and TSH levels unremarkable -no cognitive deficits per patients daughter at baseline -continue to follow -ddx: delirium, infectious, electrolyte abnormality, dehydration Chest Pain -reproducible on examination in region of sternotomy -ongoing per patient's daughter since recent surgery -EKG w/nonspecific ST wave changes -trop levels unremarkable -findings not suspicious for ACS -Given patient's neg blood cx, neg Wht ct, afebrile status, post-op infection less likely -current elevation in inflammatory markers, (ESR, CRP) possibly due torecent surgery butt cannot confirm -ECHO ordered to eval for endocarditis though unlikely HTN/CAD -continue metoprolol, furosemide and potassium supplementation -continue amiodarone though h/o arrhythmia unconfirmed Abdominal discomfort - resolved - possibly due to constipation - cholelithiasis, hiatal hernia on CT, no evidence of cholecystitis on RUQ US -CT abdomen and pelvis with rectosigmoid fecal impaction and mod/severe constipation. No bowel obstruction. -s/p one dose of miralax in ED -continue bowel regimen Weakness -PT/OT consult, pt will likely require placement as family is having difficulty caring for him at home History of CVA -continue aspirin and atorvastatin COPD -continue home inhaler Depression -continue fluoxetine Urinary symptoms -continue mirabegron Malignant Neoplasm of Right Kidney -listed on home problem list, and seen on CT here. -unsure if patient is pursuing treatment for this, confirm with family tomorrow Code status: Unable to confirm w/patient given AMS. Will order full code at this time. Disposition: admit to med/surg DVT prophylaxis: 5,000 heparin q12h (2) Weakness: (3) Depression: (4) History of CVA (cerebrovascular accident): (5) COPD (chronic obstructive pulmonary disease): (6) History of coronary artery bypass graft x 2: (7) Hypertension: (8) BPH (benign prostatic hyperplasia): (9) Chest pain: (10) Constipation: (11) Malignant neoplasm of right kidney: Supervising Physician Co-Signing Physician Notes I saw the patient with Dr. Monk and confirmed torres portions of the history and physical exam. I agree with the documentation as noted above with the following exceptions. Upon our examination today, the patient is awake and alert -he knows that he is in the hospital but he is under the impression he is in the [facility]. He does know the year and the president. Upon examination, he has tenderness both in the sternum along his sternal incision and also increased tenderness in the epigastric and right upper quadrant. While the sternal discomfort seems about the same as yesterday the epigastric discomfort seems to be improved. He remains afebrile. Hemodynamically stable. His CRP is still elevated but down compared to yesterday. He does have a very slight leukocytosis today. IMPRESSION Mental status change, resolved Status post recent mitral valve repair, and AAA repair Pain at sternotomy site, likely consistent with post surgical pain Mild leukocytosis today but no obvious signs of infection Elevated inflammatory markers which may be related to his recently discovered renal mass PLAN Could consider MRI of the brain with and without the check with radiology to see if this would be possible given his recent surgeries Repeat CBC in AM; trend inflammatory markers Ultimately the patient will likely need placement and this was discussed with ca se management Subjective No acute events overnight. Per nursing, he has cognitive status. Patient reports persistent. substernal chest pain 04/12, nurse reports overnight he has refused pain medicine overnight. He denies , fevers, chills, sob, cough, nausea. vomiting, abdominal pain, calf pain. Cardiovascular: + chest pain; no syncope, no edema and no calf pain Physical Exam Vital Signs (Past 24 Hours): Last Vital Signs Temp 36.3 C L 11/09/18 07:25 Pulse 88 11/09/18 07:42 Resp 16 11/09/18 07:42 BP 167/97 H 11/09/18 07:25 Pulse Ox 94 11/09/18 07:42 Constitutional: WD/WN, vitals as above no acute distress Eyes: PERRL and EOM intact bilaterally ENMT: external ear and nose normal, oropharynx normal Neck: trachea midline, no thyromegaly Respiratory: normal respiratory effort, lungs clear to auscultation Cardiovascular: RRR, no murmur, no edema Chest (Breasts): Additional Comments: chest wall tenderness along sternotomy incision Gastrointestinal (Abdomen): normal bowel sounds, soft, nontender, no hepatosplenomegaly Inspection/Auscultation: abdomen normal to inspection and normal bowel sounds Percussion/Palpation: + abdomen tender (ruq) and abdomen soft; no guarding, abdomen not rigid, no hepatosplenomegaly and no hepatomegaly Musculoskeletal: Head/Neck/Chest: normocephalic and head atraumatic Skin: no rashes, warm and dry Neurologic: PERRL, EOMI, accommodation nl, no face palsy, no dysarthria CN's II-XI intact bilaterally and awake Psychiatric: Orientation: alert and oriented x 3
[2018-11-09] MEDS: OXYCODONE HCL IR 5 MG TAB (IMMEDIATE RELEASE) PO PRN (10:09)
[2018-11-09 10:36] LABS: Basophils # (auto) 0.02 K/uL (0-0.2); Basophils % (auto) 0.2 %; Eosinophils # (auto) 0.09 K/uL (0-0.5); Eosinophils % (auto) 0.8 %; Hematocrit (blood only) 31.4 % (42-52); Hemoglobin 9.8 g/dL (14.0-18.0); Immature Granulocytes # (auto) 0.04 K/uL (0.00-0.02); Immature Granulocytes % (auto) 0.3 %; Lymphocytes # (auto) 1.69 K/uL (1.2-3.4); Lymphocytes % (auto) 14.7 %; Mean Corpuscular Hgb Conc 31.2 g/dL (32-36); Mean Corpuscular Volume 83.5 fL (80-100); Mean Platelet Volume 10.1 fL (7.4-10.4); Monocytes # (auto) 1.52 K/uL (0.11-0.59); Monocytes % (auto) 13.3 %; Neutrophils % (auto) 70.7 %; Platelet Count 287 K/uL (130-400); RDW Coefficient of Variation 15.7 % (11.5-14.5); RDW Standard Deviation 47.5 fL (36.4-46.3); Red Blood Count 3.76 M/uL (4.7-6.1); White Blood Count 11.46 K/uL (4.8-10.8)
[2018-11-09 10:56] LABS: BUN Creatinine Ratio 19.6 (10-20); Creatinine Clr Calc Pharmacy 70.5 ml/min; Est GFR (African American) 96.3; Est GFR (Non-African American) 83.1; Potassium 4.1 mmol/L (3.5-5.1)
[2018-11-09 10:59] LABS: Albumin Globulin Ratio 0.4 (0.9-2); Bilirubin,Total 0.3 mg/dl (0.2-1); Globulin 5.2 gm/dl (2.5-4.0); Total Protein 7.2 gm/dl (6.4-8.2)
[2018-11-10] MEDS: ACETAMINOPHEN 325 MG TAB PO PRN (05:25)
[2018-11-10] MEDS: ALBUT/IPRATROP 3MG/0.5MG NEB 3 ML VIAL INH SCH ×4 (07:13→19:20)
[2018-11-10 07:23] LABS: Basophils # (auto) 0.02 K/uL (0-0.2); Basophils % (auto) 0.2 %; Eosinophils # (auto) 0.09 K/uL (0-0.5); Eosinophils % (auto) 0.8 %; Hematocrit (blood only) 30.6 % (42-52); Hemoglobin 9.5 g/dL (14.0-18.0); Immature Granulocytes # (auto) 0.05 K/uL (0.00-0.02); Immature Granulocytes % (auto) 0.4 %; Lymphocytes # (auto) 1.73 K/uL (1.2-3.4); Lymphocytes % (auto) 14.7 %; Mean Corpuscular Volume 83.8 fL (80-100); Mean Platelet Volume 9.7 fL (7.4-10.4); Monocytes # (auto) 1.38 K/uL (0.11-0.59); Monocytes % (auto) 11.7 %; Neutrophils # (auto) 8.52 K/uL (1.4-6.5); Neutrophils % (auto) 72.2 %; Platelet Count 262 K/uL (130-400); RDW Coefficient of Variation 15.6 % (11.5-14.5); RDW Standard Deviation 47.9 fL (36.4-46.3); Red Blood Count 3.65 M/uL (4.7-6.1); White Blood Count 11.79 K/uL (4.8-10.8)
[2018-11-10 07:56] LABS: Albumin Level 1.9 gm/dl (3.4-5.0); BUN Creatinine Ratio 17.4 (10-20); Calcium 8.9 mg/dl (8.5-10.1); Creatinine Clr Calc Pharmacy 64.5 ml/min; Est GFR (African American) 89.6; Est GFR (Non-African American) 77.3; Potassium 4.1 mmol/L (3.5-5.1)
[2018-11-10 07:59] LABS: Albumin Globulin Ratio 0.4 (0.9-2); Bilirubin,Total 0.3 mg/dl (0.2-1); Total Protein 6.9 gm/dl (6.4-8.2)
[2018-11-10] MEDS: POTASSIUM CHLORIDE 20 MEQ TABCR PO SCH (08:18)
[2018-11-10] MEDS: ASPIRIN 81 MG ECTAB PO SCH (08:18)
[2018-11-10] MEDS: LACTOBACILLUS ACIDOPHILUS (FLORANEX) TAB PO SCH (08:18)
[2018-11-10] MEDS: MIRABEGRON ER 25 MG TAB PO SCH (08:18)
[2018-11-10] MEDS: FLUOXETINE HCL 20 MG CAP PO SCH (08:18)
[2018-11-10] MEDS: CALCIUM 600MG + VIT D 400 IU TAB PO SCH (08:18)
[2018-11-10] MEDS: METOPROLOL TARTRATE 25 MG TAB PO SCH ×2 (08:18→20:41)
[2018-11-10] MEDS: PANTOprazole 40 MG TAB PO SCH (08:18)
[2018-11-10] MEDS: MULTIVITAMIN TAB PO SCH (08:18)
[2018-11-10] MEDS: HEPARIN SOD 5,000 UNIT/0.5 ML VIAL SQ SCH ×2 (08:18→20:40)
[2018-11-10] MEDS: SENNA 8.6 MG TAB PO SCH (08:18)
[2018-11-10] MEDS: AMIODARONE 200 MG TAB PO SCH (08:18)
[2018-11-10] MEDS: ATORVASTATIN 40 MG TAB PO SCH (08:18)
--- NOTE | 2018-11-10 14:41 | Family Medicine Progress Note ---
Date of Service November 10, 2018 Assessment & Plan (1) Altered mental status: Mr. Robertson is a 78 year old male with a past medical history of recent mitral valve replacement, AAA s/p repair, COPD, renal cell carcinoma, hx of CVA, depression and normal pressure hydrocephalus who presented to [facility] emergency department due to altered mental status and chest pain. Altered Mental Status--improved -alert to person, place, time, appears to be at cognitive baseline -initial etiology of cognitive disturbance unclear--CT head unremarkable, no signs of infection on admission with neg blood cx, unremarkable TSH and NH3. - no hx of dementia per daughter. Chest Pain--post-op from sternotomy--improving -reproducible on examination in region of sternotomy -ongoing per patient's daughter since recent surgery - no signs/symptoms of surgical wound infection -EKG w/nonspecific ST wave changes, trop levels unremarkable -current elevation in inflammatory markers, (ESR, CRP) possibly due to recent surgery butt cannot confirm -ECHO result non-suspicious for pericarditis, endocarditis though cannot completely rule out, however given neg blood cx unlikley Leukocytosis - unclear source, WBC 11. - patient remains afebrile, clinically improving - re-ordered blood cx, f/u at 48 hrs - reordered urine cx HTN/CAD -continue metoprolol, furosemide and potassium supplementation -continue amiodarone though h/o arrhythmia unconfirmed Abdominal discomfort - resolved - possibly due to constipation - cholelithiasis, hiatal hernia on CT, no evidence of cholecystitis on RUQ US -CT abdomen and pelvis with rectosigmoid fecal impaction and mod/severe constipation. No bowel obstruction. -s/p one dose of miralax in ED -continue bowel regimen Weakness -PT/OT consult, pt will likely require placement as family is having difficulty caring for him at home History of CVA -continue aspirin and atorvastatin COPD -continue home inhaler Depression -continue fluoxetine Urinary symptoms -continue mirabegron Malignant Neoplasm of Right Kidney -listed on home problem list, and seen on CT here. -unsure if patient is pursuing treatment for this, confirm with family tomorrow Code status: Unable to confirm w/patient given AMS. full code at this time. Disposition: med/surg, discussed with daughter, she prefers patient to come home and does not believe he would do well in rehab with participation in physical therapy will coordinate with case management PT OT DVT prophylaxis: 5,000 heparin q12h (2) Weakness: (3) Depression: (4) History of CVA (cerebrovascular accident): (5) COPD (chronic obstructive pulmonary disease): (6) History of coronary artery bypass graft x 2: (7) Hypertension: (8) BPH (benign prostatic hyperplasia): (9) Chest pain: (10) Constipation: (11) Malignant neoplasm of right kidney: Supervising Physician Co-Signing Physician Notes Patient seen and examined independently of Dr. Monk. Agree with history, exam findings, assessment and plan of care as outlined. In brief, Mr. Robertson is a 78 year old male with hx of recent mitral valve replacement, COPD, CVA, depression, normal pressure hydrocephalus and RCC admitted for AMS and CP. 1. AMS seems to be resolved and without evidence of infection or metabolic disturbance as the cause of his acute change. Will continue to monitor. Wonder if there is some underlying cognitive deficit that contributed to this. 2. CP is non-cardiac in nature. sternotomy site is tender and mildly warm, but no significant erythema. Will monitor, especially in light of elevated ESR and new but mild leukocytosis. 3. leukocytosis: no obvious infectious source. Checking BCx and UCx again. Watching the sternotomy site. Hold on abx for now unless new fever or hypothermia. 4. HTN/CAD/hx CVA: continue home metoprolol, ASA, atorvastatin, lasix; on amio although no hx of afib. 5. RCC (right kidney): not getting active treatment for this. 6. weakness/deconditioning: likely would not qualify for SNF or assistance for LTC facility. Subjective No acute events overnight. Cognitive status at baseline. Substernal chest pain improving .He denies , fevers, chills, sob, cough, nausea. vomiting, abdominal pain, calf pain. Constitutional: no fever and no chills Respiratory: no cough and no dyspnea Cardiovascular: + chest pain; no syncope, no edema and no calf pain Gastrointestinal: + abdominal pain (improved); no nausea, no vomiting and no change in stools Genitourinary (Male): no dysuria and no urinary frequency Physical Exam Vital Signs (Past 24 Hours): Last Vital Signs Temp 36.5 C 11/10/18 06:26 Pulse 86 11/10/18 06:26 Resp 18 11/10/18 06:26 BP 136/84 11/10/18 06:26 Pulse Ox 96 11/10/18 06:26 Constitutional: WD/WN, vitals as above no acute distress Eyes: PERRL and EOM intact bilaterally ENMT: external ear and nose normal, oropharynx normal Neck: trachea midline, no thyromegaly Respiratory: normal respiratory effort, lungs clear to auscultation Cardiovascular: RRR, no murmur, no edema Chest (Breasts): Additional Comments: chest wall tenderness to palpation along sternotomy Gastrointestinal (Abdomen): normal bowel sounds, soft, nontender, no hepatosplenomegaly Inspection/Auscultation: abdomen normal to inspection and normal bowel sounds Percussion/Palpation: abdomen soft; abdomen nontender, no guarding, abdomen not rigid, no hepatosplenomegaly and no hepatomegaly Musculoskeletal: Head/Neck/Chest: normocephalic and head atraumatic Skin: no rashes, warm and dry Neurologic: PERRL, EOMI, accommodation nl, no face palsy, no dysarthria awake Psychiatric: Orientation: alert and oriented x 3 Results & Data Laboratory Results Laboratory Results WBC 11.79 K/uL (4.8-10.8) H 11/10/18 07:08 RBC 3.65 M/uL (4.7-6.1) L 11/10/18 07:08 Hgb 9.5 g/dL (14.0-18.0) L 11/10/18 07:08 Hct 30.6 % (42-52) L 11/10/18 07:08 MCV 83.8 fL (80-100) 11/10/18 07:08 MCH 26.0 pg (25-34) 11/10/18 07:08 MCHC 31.0 g/dL (32-36) L 11/10/18 07:08 RDW Std Deviation 47.9 fL (36.4-46.3) H 11/10/18 07:08 RDW Coeff of Juan C 15.6 % (11.5-14.5) H 11/10/18 07:08 Plt Count 262 K/uL (130-400) 11/10/18 07:08 MPV 9.7 fL (7.4-10.4) 11/10/18 07:08 Immature Gran % (Auto) 0.4 % 11/10/18 07:08 Neut % (Auto) 72.2 % 11/10/18 07:08 Lymph % (Auto) 14.7 % 11/10/18 07:08 Zavala % (Auto) 11.7 % 11/10/18 07:08 Eos % (Auto) 0.8 % 11/10/18 07:08 Baso % (Auto) 0.2 % 11/10/18 07:08 Immature Gran # (Auto) 0.05 K/uL (0.00-0.02) H 11/10/18 07:08 Neut # (Auto) 8.52 K/uL (1.4-6.5) H 11/10/18 07:08 Lymph # (Auto) 1.73 K/uL (1.2-3.4) 11/10/18 07:08 Zavala # (Auto) 1.38 K/uL (0.11-0.59) H 11/10/18 07:08 Eos # (Auto) 0.09 K/uL (0-0.5) 11/10/18 07:08 Baso # (Auto) 0.02 K/uL (0-0.2) 11/10/18 07:08 ESR > 90 mm/hr (0-14) H 11/10/18 07:08 PT 11.8 Seconds (9.0-12.0) 11/06/18 19:04 INR 1.2 (0.9-1.1) H 11/06/18 19:04 Sodium 136 mmol/L (136-145) 11/10/18 07:08 Potassium 4.1 mmol/L (3.5-5.1) 11/10/18 07:08 Chloride 104 mmol/L (98-107) 11/10/18 07:08 Carbon Dioxide 24 mmol/L (21-32) 11/10/18 07:08 Anion Gap 7.0 (3-11) 11/10/18 07:08 BUN 16 mg/dl (7-18) 11/10/18 07:08 Creatinine 0.94 mg/dl (0.6-1.4) 11/10/18 07:08 Est Cr Clr Drug Dosing 64.5 ml/min 11/10/18 07:08 Est GFR ( Amer) 89.6 11/10/18 07:08 Est GFR (Non-Af Amer) 77.3 11/10/18 07:08 BUN/Creatinine Ratio 17.4 (10-20) 11/10/18 07:08 Glucose 106 mg/dl (70-99) H 11/10/18 07:08 POC Lactic Acid Hank 1.59 mmol/L (0.90-1.70) 11/06/18 19:06 Calcium 8.9 mg/dl (8.5-10.1) 11/10/18 07:08 Phosphorus 2.7 mg/dl (2.5-4.9) 11/06/18 19:04 Magnesium 1.7 mg/dl (1.8-2.4) L 11/06/18 19:04 Total Bilirubin 0.3 mg/dl (0.2-1) 11/10/18 07:08 AST 10 U/L (15-37) L 11/10/18 07:08 ALT 13 U/L (12-78) 11/10/18 07:08 Alkaline Phosphatase 92 U/L (45-117) 11/10/18 07:08 Ammonia 17.0 umol/L (11-32) 11/07/18 05:24 Troponin I < 0.015 ng/ml (0-0.045) 11/07/18 10:40 C-Reactive Protein 4.63 mg/dl (0-0.29) H 11/09/18 10:13 Total Protein 6.9 gm/dl (6.4-8.2) 11/10/18 07:08 Albumin 1.9 gm/dl (3.4-5.0) L 11/10/18 07:08 Globulin 5.0 gm/dl (2.5-4.0) H 11/10/18 07:08 Albumin/Globulin Ratio 0.4 (0.9-2) L 11/10/18 07:08 TSH 0.994 uIu/ml (0.300-4.500) 11/07/18 05:24 Urine Color Dark Yellow 11/06/18 22:20 Urine Appearance Clear (Clear) 11/06/18 22:20 Urine pH 5.0 (4.5-7.5) 11/06/18 22:20 Ur Specific [place] 1.023 (1.000-1.030) 11/06/18 22:20 Urine Protein Trace (Negative) H 11/06/18 22:20 Urine Glucose (UA) Negative (Negative) 11/06/18 22:20 Urine Ketones Negative (Negative) 11/06/18 22:20 Urine Blood 1+ (Negative) H 11/06/18 22:20 Urine Nitrite Negative (Negative) 11/06/18 22:20 Urine Bilirubin Negative (Negative) 11/06/18 22:20 Urine Urobilinogen Negative (Negative) 11/06/18 22:20 Ur Leukocyte Esterase Negative (Negative) 11/06/18 22:20 Urine WBC (Auto) 0 /hpf (0-5) 11/06/18 22:20 Urine RBC (Auto) 0-4 /hpf (0-4) 11/06/18 22:20 U Hyaline Cast (Auto) 0 /lpf (0-5) 11/06/18 22:20 U Epithel Cells (Auto) 0-5 /lpf (0-5) 11/06/18 22:20 Urine Bacteria (Auto) Negative (Negative) 11/06/18 22:20 Medications Administered Acetaminophen (Tylenol) 650 mg PO Q6H PRN PRN Reason: Pain Stop: 12/07/18 03:08 Last Admin: 11/10/18 05:25 Dose: 650 mg Documented by: [id number] Admin: 11/07/18 10:08 Dose: 650 mg Documented by: [id number] Albuterol (Duoneb) 3 ml INH QIDR NIR Stop: 12/07/18 07:59 Last Admin: 11/10/18 15:45 Dose: 3 ml Documented by: [id number] Admin: 11/10/18 11:19 Dose: Not Given Documented by: [id number] Admin: 11/10/18 07:13 Dose: Not Given Documented by: [id number] Admin: 11/09/18 19:31 Dose: 3 ml Documented by: [id number] Admin: 11/09/18 15:56 Dose: 3 ml Documented by: [id number] Admin: 11/09/18 11:28 Dose: 3 ml Documented by: [id number] Admin: 11/09/18 07:42 Dose: 3 ml Documented by: [id number] Admin: 11/08/18 19:03 Dose: Not Given Documented by: [id number] Admin: 11/08/18 15:25 Dose: 3 ml Documented by: [id number] Admin: 11/08/18 11:11 Dose: 3 ml Documented by: [id number] Admin: 11/08/18 07:04 Dose: 3 ml Documented by: [id number] Admin: 11/07/18 19:16 Dose: 3 ml Documented by: [id number] Admin: 11/07/18 15:23 Dose: 3 ml Documented by: [id number] Admin: 11/07/18 11:11 Dose: 3 ml Documented by: [id number] Admin: 11/07/18 07:03 Dose: 3 ml Documented by: [id number] Amiodarone HCl (Cordarone) 400 mg PO DAILY NIR Stop: 12/07/18 08:59 Last Admin: 11/10/18 08:18 Dose: 400 mg Documented by: [id number] Admin: 11/09/18 07:15 Dose: 400 mg Documented by: [id number] Admin: 11/08/18 08:39 Dose: 400 mg Documented by: [id number] Admin: 11/07/18 07:32 Dose: 400 mg Documented by: [id number] Aspirin (Ecotrin Ectab) 81 mg PO DAILY INR Stop: 12/07/18 08:59 Last Admin: 11/10/18 08:18 Dose: 81 mg Documented by: [id number] Admin: 11/09/18 07:15 Dose: 81 mg Documented by: [id number] Admin: 11/08/18 08:39 Dose: 81 mg Documented by: [id number] Admin: 11/07/18 07:32 Dose: 81 mg Documented by: [id number] Atorvastatin Calcium (Lipitor) 40 mg PO DAILY NIR Stop: 12/07/18 08:59 Last Admin: 11/10/18 08:18 Dose: 40 mg Documented by: [id number] Admin: 11/09/18 07:15 Dose: 40 mg Documented by: [id number] Admin: 11/08/18 08:40 Dose: 40 mg Documented by: [id number] Admin: 11/07/18 07:32 Dose: 40 mg Documented by: [id number] Fluoxetine HCl (Prozac) 40 mg PO DAILY NIR Stop: 12/07/18 08:59 Last Admin: 11/10/18 08:18 Dose: 40 mg Documented by: [id number] Admin: 11/09/18 07:15 Dose: 40 mg Documented by: [id number] Admin: 11/08/18 08:40 Dose: 40 mg Documented by: [id number] Admin: 11/07/18 07:33 Dose: 40 mg Documented by: [id number] Heparin Sodium (Porcine) (Heparin Sodium (Porcine)) 5,000 units SQ Q12 NIR Stop: 12/07/18 08:59 Last Admin: 11/10/18 08:18 Dose: 5,000 units Documented by: [id number] Cosigned by: [id number] Admin: 11/09/18 20:29 Dose: 5,000 units Documented by: [id number] Cosigned by: [id number] Admin: 11/09/18 07:14 Dose: 5,000 units Documented by: [id number] Cosigned by: [id number] Admin: 11/08/18 21:39 Dose: Not Given Documented by: [id number] Admin: 11/08/18 08:40 Dose: 5,000 units Documented by: [id number] Cosigned by: [id number] Admin: 11/07/18 22:09 Dose: 5,000 units Documented by: [id number] Cosigned by: [id number] Admin: 11/07/18 07:36 Dose: 5,000 units Documented by: [id number] Cosigned by: [id number] Ioversol (Optiray 320 100ml) 90 ml IV ONCE PRN PRN Reason: Interaction Checking Stop: 11/10/18 20:35 Last Admin: 11/06/18 20:37 Dose: 90 ml Documented by: [id number] Lactobacillus Acidophilus (Floranex) 4 tab PO DAILY [facility] Stop: 12/07/18 08:59 Last Admin: 11/10/18 08:18 Dose: 4 tab Documented by: [id number] Admin: 11/09/18 07:15 Dose: 4 tab Documented by: [id number] Admin: 11/08/18 08:39 Dose: 4 tab Documented by: [id number] Admin: 11/07/18 07:32 Dose: 4 tab Documented by: [id number] Magnesium Hydroxide (Milk Of Magnesia) 30 ml PO Q6H PRN PRN Reason: Constipation Stop: 12/07/18 05:22 Last Admin: 11/07/18 14:06 Dose: 30 ml Documented by: [id number] Metoprolol Tartrate (Lopressor) 12.5 mg PO BID [facility] Stop: 12/07/18 08:59 Last Admin: 03/01/19 08:18 Dose: 12.5 mg Documented by: [id number] Admin: 11/09/18 20:29 Dose: 12.5 mg Documented by: [id number] Admin: 11/09/18 07:15 Dose: 12.5 mg Documented by: [id number] Admin: 11/08/18 21:39 Dose: Not Given Documented by: [id number] Admin: 11/08/18 08:40 Dose: 12.5 mg Documented by: [id number] Admin: 11/07/18 22:09 Dose: 12.5 mg Documented by: [id number] Admin: 11/07/18 07:32 Dose: 12.5 mg Documented by: [id number] Mirabegron (Myrbetriq Er) 25 mg PO DAILY NIR Stop: 12/07/18 08:59 Last Admin: 11/10/18 08:18 Dose: 25 mg Documented by: [id number] Admin: 11/09/18 07:15 Dose: 25 mg Documented by: [id number] Admin: 11/08/18 08:40 Dose: 25 mg Documented by: [id number] Admin: 11/07/18 07:33 Dose: 25 mg Documented by: [id number] Multivitamins (Multivitamin Tab) 1 tab PO DAILY NIR Stop: 12/07/18 08:59 Last Admin: 11/10/18 08:18 Dose: 1 tab Documented by: [id number] Admin: 11/09/18 07:15 Dose: 1 tab Documented by: [id number] Admin: 11/08/18 08:40 Dose: 1 tab Documented by: [id number] Admin: 11/07/18 07:33 Dose: 1 tab Documented by: [id number] Multivitamins/Minerals (Caltrate Plus) 1 tab PO DAILY NIR Stop: 12/07/18 08:59 Last Admin: 11/10/18 08:18 Dose: 1 tab Documented by: [id number] Admin: 11/09/18 07:16 Dose: 1 tab Documented by: [id number] Admin: 11/08/18 08:39 Dose: 1 tab Documented by: [id number] Admin: 11/07/18 07:31 Dose: 1 tab Documented by: [id number] Oxycodone HCl (Roxicodone Immediate Rel) 5 mg PO Q4H PRN PRN Reason: MODERATE TO SEVERE PAIN Stop: 11/21/18 03:08 Last Admin: 11/09/18 10:09 Dose: 5 mg Documented by: [id number] Admin: 11/08/18 08:40 Dose: 5 mg Documented by: [id number] Pantoprazole Sodium (Protonix) 40 mg PO DAILY NIR Stop: 12/07/18 08:59 Last Admin: 11/10/18 08:18 Dose: 40 mg Documented by: [id number] Admin: 11/09/18 07:15 Dose: 40 mg Documented by: [id number] Admin: 11/08/18 08:41 Dose: 40 mg Documented by: [id number] Admin: 11/07/18 07:33 Dose: 40 mg Documented by: [id number] Potassium Chloride (Klor-Con M20) 20 meq PO DAILY NIR Stop: 12/07/18 08:59 Last Admin: 11/10/18 08:18 Dose: 20 meq Documented by: [id number] Admin: 11/09/18 07:14 Dose: 20 meq Documented by: [id number] Admin: 11/08/18 08:40 Dose: 20 meq Documented by: [id number] Admin: 11/07/18 07:32 Dose: 20 meq Documented by: [id number] Sennosides (Senokot) 8.6 mg PO QAM NIR Stop: 12/07/18 08:59 Last Admin: 11/10/18 08:18 Dose: 8.6 mg Documented by: [id number] Admin: 11/09/18 07:14 Dose: 8.6 mg Documented by: [id number] Admin: 11/08/18 08:40 Dose: 8.6 mg Documented by: [id number] Admin: 11/07/18 07:40 Dose: 8.6 mg Documented by: [id number] Discontinued Medications Sodium Chloride (Nss 1000ml) 250 mls @ 999 mls/hr IV .Q16M ONE Stop: 11/06/18 17:47 Last Infusion: 11/06/18 19:08 Dose: 0 mls/hr Documented by: [id number] Admin: 11/06/18 18:33 Dose: 999 mls/hr Documented by: [id number] Sodium Chloride (Nss 1000ml) 250 mls @ 999 mls/hr IV .Q16M ONE Stop: 11/06/18 22:11 Last Infusion: 11/06/18 22:37 Dose: 0 mls/hr Documented by: [id number] Admin: 11/06/18 22:07 Dose: 999 mls/hr Documented by: [id number] Polyethylene Glycol (Miralax Powder Packet) 17 gm PO ONE ONE Stop: 11/06/18 21:42 Last Admin: 11/06/18 22:37 Dose: 17 gm Documented by: [id number] Resident Activity Tracking Resident Involvement: Resident Care Provided Care Provided: Adult Hospital Medicine
[2018-11-11] MEDS: ALBUT/IPRATROP 3MG/0.5MG NEB 3 ML VIAL INH SCH ×4 (07:08→19:33)
[2018-11-11 08:06] LABS: Basophils # (auto) 0.02 K/uL (0-0.2); Basophils % (auto) 0.2 %; Eosinophils # (auto) 0.11 K/uL (0-0.5); Hematocrit (blood only) 29.3 % (42-52); Hemoglobin 9.1 g/dL (14.0-18.0); Immature Granulocytes # (auto) 0.07 K/uL (0.00-0.02); Immature Granulocytes % (auto) 0.7 %; Lymphocytes # (auto) 2.45 K/uL (1.2-3.4); Lymphocytes % (auto) 23.3 %; Mean Corpuscular Hgb Conc 31.1 g/dL (32-36); Mean Corpuscular Volume 82.8 fL (80-100); Monocytes # (auto) 1.22 K/uL (0.11-0.59); Monocytes % (auto) 11.6 %; Neutrophils # (auto) 6.63 K/uL (1.4-6.5); Neutrophils % (auto) 63.2 %; Platelet Count 268 K/uL (130-400); RDW Coefficient of Variation 15.6 % (11.5-14.5); RDW Standard Deviation 47.1 fL (36.4-46.3); Red Blood Count 3.54 M/uL (4.7-6.1)
[2018-11-11] MEDS: FLUOXETINE HCL 20 MG CAP PO SCH (08:16)
[2018-11-11] MEDS: CALCIUM 600MG + VIT D 400 IU TAB PO SCH (08:16)
[2018-11-11] MEDS: PANTOprazole 40 MG TAB PO SCH (08:16)
[2018-11-11] MEDS: HEPARIN SOD 5,000 UNIT/0.5 ML VIAL SQ SCH ×2 (08:17→21:57)
[2018-11-11] MEDS: POTASSIUM CHLORIDE 20 MEQ TABCR PO SCH (08:17)
[2018-11-11] MEDS: LACTOBACILLUS ACIDOPHILUS (FLORANEX) TAB PO SCH (08:18)
[2018-11-11] MEDS: AMIODARONE 200 MG TAB PO SCH (08:18)
[2018-11-11] MEDS: SENNA 8.6 MG TAB PO SCH (08:19)
[2018-11-11] MEDS: MULTIVITAMIN TAB PO SCH (08:19)
[2018-11-11] MEDS: ATORVASTATIN 40 MG TAB PO SCH (08:19)
[2018-11-11] MEDS: ASPIRIN 81 MG ECTAB PO SCH (08:19)
[2018-11-11] MEDS: MIRABEGRON ER 25 MG TAB PO SCH (08:19)
[2018-11-11] MEDS: METOPROLOL TARTRATE 25 MG TAB PO SCH ×2 (08:20→21:57)
[2018-11-11 08:41] LABS: Albumin Level 1.8 gm/dl (3.4-5.0); BUN Creatinine Ratio 19.2 (10-20); Calcium 8.8 mg/dl (8.5-10.1); Creatinine Clr Calc Pharmacy 78.7 ml/min; Est GFR (African American) 100.7; Est GFR (Non-African American) 86.9; Potassium 3.8 mmol/L (3.5-5.1)
[2018-11-11 08:44] LABS: Albumin Globulin Ratio 0.4 (0.9-2); Bilirubin,Total 0.3 mg/dl (0.2-1); Globulin 4.9 gm/dl (2.5-4.0); Total Protein 6.7 gm/dl (6.4-8.2)
--- NOTE | 2018-11-11 15:37 | Family Medicine Progress Note ---
Date of Service November 11, 2018 Assessment & Plan (1) Altered mental status: Mr. Robertson is a 78 year old male with a past medical history of recent mitral valve replacement, AAA s/p repair, COPD, renal cell carcinoma, hx of CVA, depression and normal pressure hydrocephalus who presented to [facility] emergency department due to altered mental status and chest pain. Altered Mental Status -alert to person, place, time, appears to be at cognitive baseline -initial etiology of cognitive disturbance unclear -Head CT without acute changes -afebrile, normal WCC, UA and CXR w/out evidence for infection. -bcx NGTD , Continue to follow -ammonia and TSH levels unremarkable -no cognitive deficits per patients daughter at baseline -continue to follow -ddx: delirium, infectious, electrolyte abnormality, dehydration Chest Pain - improving per patient -reproducible on examination in region of sternotomy -ongoing per patient's daughter since recent surgery -EKG w/nonspecific ST wave changes -trop levels unremarkable -findings not suspicious for ACS -Given patient's neg blood cx, neg Wht ct, afebrile status, post-op infection less likely -current elevation in inflammatory markers, (ESR, CRP) possibly due to recent surgery butt cannot confirm -ECHO result non-suspicious for pericarditis, endocarditis though cannot completely rule out, however given neg blood cx unlikley Leukocytosis - unclear source -new onset mild leukocytosis x 2 days - patient remains afebrile, clinically improving - 1/2 + Blood cx for Staph, will f/u 2nd cx to confirm if contaminant as patient clincally improved - f/u urine cx HTN/CAD -continue metoprolol, furosemide and potassium supplementation -continue amiodarone though h/o arrhythmia unconfirmed Abdominal discomfort - resolved - possibly due to constipation - cholelithiasis, hiatal hernia on CT, no evidence of cholecystitis on RUQ US -CT abdomen and pelvis with rectosigmoid fecal impaction and mod/severe constipation. No bowel obstruction. -s/p one dose of miralax in ED -continue bowel regimen Weakness -PT/OT consult, family refusing placement, would like him to come home - parents discussing plans for hospice care with [facility] History of CVA -continue aspirin and atorvastatin COPD -continue home inhaler Depression -continue fluoxetine Urinary symptoms -continue mirabegron Malignant Neoplasm of Right Kidney -listed on home problem list, and seen on CT here. -unsure if patient is pursuing treatment for this, confirm with family tomorrow Code status: Unable to confirm w/patient given AMS. full code at this time. Disposition: med/surg, discussed with daughter, she prefers patient to come home and does not believe he would do well in rehab with participation in physical therapy will coordinate with case management PT OT DVT prophylaxis: 5,000 heparin q12h (2) Weakness: (3) Depression: (4) History of CVA (cerebrovascular accident): (5) COPD (chronic obstructive pulmonary disease): (6) History of coronary artery bypass graft x 2: (7) Hypertension: (8) BPH (benign prostatic hyperplasia): (9) Chest pain: (10) Constipation: (11) Malignant neoplasm of right kidney: Supervising Physician Co-Signing Physician Notes Patient seen and examined independently of Dr. Monk. Agree with history, exam findings, assessment and plan of care as outlined. In brief, Mr. Robertson is a 78 year old male with hx of recent mitral valve replacement, COPD, CVA, depression, normal pressure hydrocephalus and RCC admitted for AMS and CP. 1. AMS seems to be resolved and without evidence of infection or metabolic disturbance as the cause of his acute change. Will continue to monitor. Wonder if there is some underlying cognitive deficit that contributed to this. 2. CP is non-cardiac in nature. sternotomy site is tender and mildly warm, but no significant erythema. Will monitor, especially in light of elevated ESR and new but mild leukocytosis. 3. leukocytosis: BCx #1 growing MRSA. Urine sample awaiting collection. Waiting for second BCx results before starting abx. Watching the sternotomy site. Hold on abx for now unless new fever or hypothermia. 4. HTN/CAD/hx CVA: continue home metoprolol, ASA, atorvastatin, lasix; on amio although no hx of afib. 5. RCC (right kidney): not getting active treatment for this--?hospice eval today. Awaiting to hear decision of whether he qualifies for hospice. 6. weakness/deconditioning: likely would not qualify for SNF or assistance for LTC facility. Subjective No acute events overnight. Cognitive status at baseline. Substernal chest pain subjectively improving Patient refusing pain medicine.He denies , fevers, chills, sob, cough, nausea. vomiting, abdominal pain, calf pain. Constitutional: no fever and no chills Respiratory: no cough and no dyspnea Cardiovascular: + chest pain; no syncope, no edema and no calf pain Gastrointestinal: + abdominal pain (improved); no nausea, no vomiting and no change in stools Physical Exam Vital Signs (Past 24 Hours): Last Vital Signs Temp 36.6 C 11/11/18 07:08 Pulse 77 11/11/18 07:08 Resp 18 11/11/18 07:08 BP 152/86 H 11/11/18 07:08 Pulse Ox 93 11/11/18 07:08 Constitutional: WD/WN, vitals as above no acute distress Eyes: PERRL and EOM intact bilaterally ENMT: external ear and nose normal, oropharynx normal Neck: trachea midline, no thyromegaly Respiratory: normal respiratory effort, lungs clear to auscultation Cardiovascular: RRR, no murmur, no edema Chest (Breasts): Additional Comments: tender to palpation along sternotomy scar, slightly warm to touch Gastrointestinal (Abdomen): normal bowel sounds, soft, nontender, no hepatosplenomegaly Inspection/Auscultation: abdomen normal to inspection and normal bowel sounds Percussion/Palpation: abdomen soft; abdomen nontender, no guarding, abdomen not rigid, no hepatosplenomegaly and no hepatomegaly Musculoskeletal: Head/Neck/Chest: normocephalic and head atraumatic Skin: no rashes, warm and dry Neurologic: PERRL, EOMI, accommodation nl, no face palsy, no dysarthria awake Psychiatric: Orientation: alert and oriented x 3 Results & Data Laboratory Results Laboratory Results WBC 10.50 K/uL (4.8-10.8) 11/11/18 07:48 RBC 3.54 M/uL (4.7-6.1) L 11/11/18 07:48 Hgb 9.1 g/dL (14.0-18.0) L 11/11/18 07:48 Hct 29.3 % (42-52) L 11/11/18 07:48 MCV 82.8 fL (80-100) 11/11/18 07:48 MCH 25.7 pg (25-34) 11/11/18 07:48 MCHC 31.1 g/dL (32-36) L 11/11/18 07:48 RDW Std Deviation 47.1 fL (36.4-46.3) H 11/11/18 07:48 RDW Coeff of Juan C 15.6 % (11.5-14.5) H 11/11/18 07:48 Plt Count 268 K/uL (130-400) 11/11/18 07:48 MPV 10.0 fL (7.4-10.4) 11/11/18 07:48 Immature Gran % (Auto) 0.7 % 11/11/18 07:48 Neut % (Auto) 63.2 % 11/11/18 07:48 Lymph % (Auto) 23.3 % 11/11/18 07:48 Taylor % (Auto) 11.6 % 11/11/18 07:48 Eos % (Auto) 1.0 % 11/11/18 07:48 Baso % (Auto) 0.2 % 11/11/18 07:48 Immature Gran # (Auto) 0.07 K/uL (0.00-0.02) H 11/11/18 07:48 Neut # (Auto) 6.63 K/uL (1.4-6.5) H 11/11/18 07:48 Lymph # (Auto) 2.45 K/uL (1.2-3.4) 11/11/18 07:48 Taylor # (Auto) 1.22 K/uL (0.11-0.59) H 11/11/18 07:48 Eos # (Auto) 0.11 K/uL (0-0.5) 11/11/18 07:48 Baso # (Auto) 0.02 K/uL (0-0.2) 11/11/18 07:48 ESR > 90 mm/hr (0-14) H 11/10/18 07:08 PT 11.8 Seconds (9.0-12.0) 11/06/18 19:04 INR 1.2 (0.9-1.1) H 11/06/18 19:04 Sodium 135 mmol/L (136-145) L 11/11/18 07:48 Potassium 3.8 mmol/L (3.5-5.1) 11/11/18 07:48 Chloride 104 mmol/L (98-107) 11/11/18 07:48 Carbon Dioxide 24 mmol/L (21-32) 11/11/18 07:48 Anion Gap 7.0 (3-11) 11/11/18 07:48 BUN 15 mg/dl (7-18) 11/11/18 07:48 Creatinine 0.77 mg/dl (0.6-1.4) 11/11/18 07:48 Est Cr Clr Drug Dosing 78.7 ml/min 11/11/18 07:48 Est GFR ( Amer) 100.7 11/11/18 07:48 Est GFR (Non-Af Amer) 86.9 11/11/18 07:48 BUN/Creatinine Ratio 19.2 (10-20) 11/11/18 07:48 Glucose 96 mg/dl (70-99) 11/11/18 07:48 POC Lactic Acid Hank 1.59 mmol/L (0.90-1.70) 11/06/18 19:06 Calcium 8.8 mg/dl (8.5-10.1) 11/11/18 07:48 Phosphorus 2.7 mg/dl (2.5-4.9) 11/06/18 19:04 Magnesium 1.7 mg/dl (1.8-2.4) L 11/06/18 19:04 Total Bilirubin 0.3 mg/dl (0.2-1) 11/11/18 07:48 AST 10 U/L (15-37) L 11/11/18 07:48 ALT 14 U/L (12-78) 11/11/18 07:48 Alkaline Phosphatase 87 U/L (45-117) 11/11/18 07:48 Ammonia 17.0 umol/L (11-32) 11/07/18 05:24 Troponin I < 0.015 ng/ml (0-0.045) 11/07/18 10:40 C-Reactive Protein 4.63 mg/dl (0-0.29) H 11/09/18 10:13 Total Protein 6.7 gm/dl (6.4-8.2) 11/11/18 07:48 Albumin 1.8 gm/dl (3.4-5.0) L 11/11/18 07:48 Globulin 4.9 gm/dl (2.5-4.0) H 11/11/18 07:48 Albumin/Globulin Ratio 0.4 (0.9-2) L 11/11/18 07:48 TSH 0.994 uIu/ml (0.300-4.500) 11/07/18 05:24 Urine Color Dark Yellow 11/06/18 22:20 Urine Appearance Clear (Clear) 11/06/18 22:20 Urine pH 5.0 (4.5-7.5) 11/06/18 22:20 Ur Specific [place] 1.023 (1.000-1.030) 11/06/18 22:20 Urine Protein Trace (Negative) H 11/06/18 22:20 Urine Glucose (UA) Negative (Negative) 11/06/18 22:20 Urine Ketones Negative (Negative) 11/06/18 22:20 Urine Blood 1+ (Negative) H 11/06/18 22:20 Urine Nitrite Negative (Negative) 11/06/18 22:20 Urine Bilirubin Negative (Negative) 11/06/18 22:20 Urine Urobilinogen Negative (Negative) 11/06/18 22:20 Ur Leukocyte Esterase Negative (Negative) 11/06/18 22:20 Urine WBC (Auto) 0 /hpf (0-5) 11/06/18 22:20 Urine RBC (Auto) 0-4 /hpf (0-4) 11/06/18 22:20 U Hyaline Cast (Auto) 0 /lpf (0-5) 11/06/18 22:20 U Epithel Cells (Auto) 0-5 /lpf (0-5) 11/06/18 22:20 Urine Bacteria (Auto) Negative (Negative) 11/06/18 22:20 Bld Cult Staph aureus PCR Positive (Negative) A 11/10/18 09:12 Blood Culture MRSA PCR Positive (Negative) A 11/10/18 09:12 Medications Administered Acetaminophen (Tylenol) 650 mg PO Q6H PRN PRN Reason: Pain Stop: 12/07/18 03:08 Last Admin: 11/10/18 05:25 Dose: 650 mg Documented by: [id number] Admin: 11/07/18 10:08 Dose: 650 mg Documented by: [id number] Albuterol (Duoneb) 3 ml INH QIDR NIR Stop: 12/07/18 07:59 Last Admin: 11/11/18 15:01 Dose: Not Given Documented by: [id number] Admin: 11/11/18 10:59 Dose: Not Given Documented by: [id number] Admin: 11/11/18 07:08 Dose: 3 ml Documented by: [id number] Admin: 11/10/18 19:20 Dose: 3 ml Documented by: [id number] Admin: 11/10/18 15:45 Dose: 3 ml Documented by: [id number] Admin: 11/10/18 11:19 Dose: Not Given Documented by: [id number] Admin: 11/10/18 07:13 Dose: Not Given Documented by: [id number] Admin: 11/09/18 19:31 Dose: 3 ml Documented by: [id number] Admin: 11/09/18 15:56 Dose: 3 ml Documented by: [id number] Admin: 11/09/18 11:28 Dose: 3 ml Documented by: [id number] Admin: 11/09/18 07:42 Dose: 3 ml Documented by: [id number] Admin: 11/08/18 19:03 Dose: Not Given Documented by: [id number] Admin: 11/08/18 15:25 Dose: 3 ml Documented by: [id number] Admin: 11/08/18 11:11 Dose: 3 ml Documented by: [id number] Admin: 11/08/18 07:04 Dose: 3 ml Documented by: [id number] Admin: 11/07/18 19:16 Dose: 3 ml Documented by: [id number] Admin: 11/07/18 15:23 Dose: 3 ml Documented by: [id number] Admin: 11/07/18 11:11 Dose: 3 ml Documented by: [id number] Admin: 11/07/18 07:03 Dose: 3 ml Documented by: [id number] Amiodarone HCl (Cordarone) 400 mg PO DAILY NIR Stop: 12/07/18 08:59 Last Admin: 11/11/18 08:18 Dose: 400 mg Documented by: [id number] Admin: 11/10/18 08:18 Dose: 400 mg Documented by: [id number] Admin: 11/09/18 07:15 Dose: 400 mg Documented by: [id number] Admin: 11/08/18 08:39 Dose: 400 mg Documented by: [id number] Admin: 11/07/18 07:32 Dose: 400 mg Documented by: [id number] Aspirin (Ecotrin Ectab) 81 mg PO DAILY NIR Stop: 12/07/18 08:59 Last Admin: 11/11/18 08:19 Dose: 81 mg Documented by: [id number] Admin: 11/10/18 08:18 Dose: 81 mg Documented by: [id number] Admin: 11/09/18 07:15 Dose: 81 mg Documented by: [id number] Admin: 11/08/18 08:39 Dose: 81 mg Documented by: [id number] Admin: 11/07/18 07:32 Dose: 81 mg Documented by: [id number] Atorvastatin Calcium (Lipitor) 40 mg PO DAILY NIR Stop: 12/07/18 08:59 Last Admin: 11/11/18 08:19 Dose: 40 mg Documented by: [id number] Admin: 11/10/18 08:18 Dose: 40 mg Documented by: [id number] Admin: 11/09/18 07:15 Dose: 40 mg Documented by: [id number] Admin: 11/08/18 08:40 Dose: 40 mg Documented by: [id number] Admin: 11/07/18 07:32 Dose: 40 mg Documented by: [id number] Fluoxetine HCl (Prozac) 40 mg PO DAILY NIR Stop: 12/07/18 08:59 Last Admin: 11/11/18 08:16 Dose: 40 mg Documented by: [id number] Admin: 11/10/18 08:18 Dose: 40 mg Documented by: [id number] Admin: 11/09/18 07:15 Dose: 40 mg Documented by: [id number] Admin: 11/08/18 08:40 Dose: 40 mg Documented by: [id number] Admin: 11/07/18 07:33 Dose: 40 mg Documented by: [id number] Heparin Sodium (Porcine) (Heparin Sodium (Porcine)) 5,000 units SQ Q12 NIR Stop: 12/07/18 08:59 Last Admin: 11/11/18 08:17 Dose: 5,000 units Documented by: [id number] Cosigned by: [id number] Admin: 11/10/18 20:40 Dose: 5,000 units Documented by: [id number] Cosigned by: [id number] Admin: 11/10/18 08:18 Dose: 5,000 units Documented by: [id number] Cosigned by: [id number] Admin: 11/09/18 20:29 Dose: 5,000 units Documented by: [id number] Cosigned by: [id number] Admin: 11/09/18 07:14 Dose: 5,000 units Documented by: [id number] Cosigned by: [id number] Admin: 11/08/18 21:39 Dose: Not Given Documented by: [id number] Admin: 11/08/18 08:40 Dose: 5,000 units Documented by: [id number] Cosigned by: [id number] Admin: 11/07/18 22:09 Dose: 5,000 units Documented by: [id number] Cosigned by: [id number] Admin: 11/07/18 07:36 Dose: 5,000 units Documented by: [id number] Cosigned by: [id number] Lactobacillus Acidophilus (Floranex) 4 tab PO DAILY NIR Stop: 12/07/18 08:59 Last Admin: 11/11/18 08:18 Dose: 4 tab Documented by: [id number] Admin: 11/10/18 08:18 Dose: 4 tab Documented by: [id number] Admin: 11/09/18 07:15 Dose: 4 tab Documented by: [id number] Admin: 11/08/18 08:39 Dose: 4 tab Documented by: [id number] Admin: 11/07/18 07:32 Dose: 4 tab Documented by: [id number] Magnesium Hydroxide (Milk Of Magnesia) 30 ml PO Q6H PRN PRN Reason: Constipation Stop: 12/07/18 05:22 Last Admin: 11/07/18 14:06 Dose: 30 ml Documented by: [id number] Metoprolol Tartrate (Lopressor) 12.5 mg PO BID NIR Stop: 12/07/18 08:59 Last Admin: 11/11/18 08:20 Dose: 12.5 mg Documented by: [id number] Admin: 11/10/18 20:41 Dose: 12.5 mg Documented by: [id number] Admin: 11/10/18 08:18 Dose: 12.5 mg Documented by: [id number] Admin: 11/09/18 20:29 Dose: 12.5 mg Documented by: [id number] Admin: 11/09/18 07:15 Dose: 12.5 mg Documented by: [id number] Admin: 11/08/18 21:39 Dose: Not Given Documented by: [id number] Admin: 11/08/18 08:40 Dose: 12.5 mg Documented by: [id number] Admin: 11/07/18 22:09 Dose: 12.5 mg Documented by: [id number] Admin: 11/07/18 07:32 Dose: 12.5 mg Documented by: [id number] Mirabegron (Myrbetriq Er) 25 mg PO DAILY NIR Stop: 12/07/18 08:59 Last Admin: 11/11/18 08:19 Dose: 25 mg Documented by: [id number] Admin: 11/10/18 08:18 Dose: 25 mg Documented by: [id number] Admin: 11/09/18 07:15 Dose: 25 mg Documented by: [id number] Admin: 11/08/18 08:40 Dose: 25 mg Documented by: [id number] Admin: 11/07/18 07:33 Dose: 25 mg Documented by: [id number] Multivitamins (Multivitamin Tab) 1 tab PO DAILY NIR Stop: 12/07/18 08:59 Last Admin: 11/11/18 08:19 Dose: 1 tab Documented by: [id number] Admin: 11/10/18 08:18 Dose: 1 tab Documented by: [id number] Admin: 11/09/18 07:15 Dose: 1 tab Documented by: [id number] Admin: 11/08/18 08:40 Dose: 1 tab Documented by: [id number] Admin: 11/07/18 07:33 Dose: 1 tab Documented by: [id number] Multivitamins/Minerals (Caltrate Plus) 1 tab PO DAILY NIR Stop: 12/07/18 08:59 Last Admin: 11/11/18 08:16 Dose: 1 tab Documented by: [id number] Admin: 11/10/18 08:18 Dose: 1 tab Documented by: [id number] Admin: 11/09/18 07:16 Dose: 1 tab Documented by: [id number] Admin: 11/08/18 08:39 Dose: 1 tab Documented by: [id number] Admin: 11/07/18 07:31 Dose: 1 tab Documented by: [id number] Oxycodone HCl (Roxicodone Immediate Rel) 5 mg PO Q4H PRN PRN Reason: MODERATE TO SEVERE PAIN Stop: 11/21/18 03:08 Last Admin: 11/09/18 10:09 Dose: 5 mg Documented by: [id number] Admin: 11/08/18 08:40 Dose: 5 mg Documented by: [id number] Pantoprazole Sodium (Protonix) 40 mg PO DAILY NIR Stop: 12/07/18 08:59 Last Admin: 11/11/18 08:16 Dose: 40 mg Documented by: [id number] Admin: 11/10/18 08:18 Dose: 40 mg Documented by: [id number] Admin: 11/09/18 07:15 Dose: 40 mg Documented by: [id number] Admin: 11/08/18 08:41 Dose: 40 mg Documented by: [id number] Admin: 11/07/18 07:33 Dose: 40 mg Documented by: [id number] Potassium Chloride (Klor-Con M20) 20 meq PO DAILY [facility] Stop: 12/07/18 08:59 Last Admin: 11/11/18 08:17 Dose: 20 meq Documented by: [id number] Admin: 11/10/18 08:18 Dose: 20 meq Documented by: [id number] Admin: 11/09/18 07:14 Dose: 20 meq Documented by: [id number] Admin: 11/08/18 08:40 Dose: 20 meq Documented by: [id number] Admin: 11/07/18 07:32 Dose: 20 meq Documented by: [id number] Sennosides (Senokot) 8.6 mg PO QAM NIR Stop: 12/07/18 08:59 Last Admin: 11/11/18 08:19 Dose: 8.6 mg Documented by: [id number] Admin: 11/10/18 08:18 Dose: 8.6 mg Documented by: [id number] Admin: 11/09/18 07:14 Dose: 8.6 mg Documented by: [id number] Admin: 11/08/18 08:40 Dose: 8.6 mg Documented by: [id number] Admin: 11/07/18 07:40 Dose: 8.6 mg Documented by: [id number] Discontinued Medications Sodium Chloride (Nss 1000ml) 250 mls @ 999 mls/hr IV .Q16M ONE Stop: 11/06/18 17:47 Last Infusion: 11/06/18 19:08 Dose: 0 mls/hr Documented by: [id number] Admin: 11/06/18 18:33 Dose: 999 mls/hr Documented by: [id number] Sodium Chloride (Nss 1000ml) 250 mls @ 999 mls/hr IV .Q16M ONE Stop: 11/06/18 22:11 Last Infusion: 11/06/18 22:37 Dose: 0 mls/hr Documented by: [id number] Admin: 11/06/18 22:07 Dose: 999 mls/hr Documented by: [id number] Ioversol (Optiray 320 100ml) 90 ml IV ONCE PRN PRN Reason: Interaction Checking Stop: 11/10/18 20:35 Last Admin: 11/06/18 20:37 Dose: 90 ml Documented by: [id number] Polyethylene Glycol (Miralax Powder Packet) 17 gm PO ONE ONE Stop: 11/06/18 21:42 Last Admin: 11/06/18 22:37 Dose: 17 gm Documented by: [id number] Resident Activity Tracking Resident Involvement: Resident Care Provided Care Provided: Adult Hospital Medicine
[2018-11-12] MEDS: ALBUT/IPRATROP 3MG/0.5MG NEB 3 ML VIAL INH SCH (07:09)
[2018-11-12] MEDS: CALCIUM 600MG + VIT D 400 IU TAB PO SCH (08:02)
[2018-11-12] MEDS: LACTOBACILLUS ACIDOPHILUS (FLORANEX) TAB PO SCH (08:03)
[2018-11-12] MEDS: ASPIRIN 81 MG ECTAB PO SCH (08:03)
[2018-11-12] MEDS: AMIODARONE 200 MG TAB PO SCH (08:03)
[2018-11-12] MEDS: ATORVASTATIN 40 MG TAB PO SCH (08:04)
[2018-11-12] MEDS: HEPARIN SOD 5,000 UNIT/0.5 ML VIAL SQ SCH ×2 (08:05→20:18)
[2018-11-12] MEDS: POTASSIUM CHLORIDE 20 MEQ TABCR PO SCH (08:05)
[2018-11-12] MEDS: PANTOprazole 40 MG TAB PO SCH (08:06)
[2018-11-12] MEDS: METOPROLOL TARTRATE 25 MG TAB PO SCH ×2 (08:06→20:17)
[2018-11-12] MEDS: MULTIVITAMIN TAB PO SCH (08:06)
[2018-11-12] MEDS: FLUOXETINE HCL 20 MG CAP PO SCH (08:07)
[2018-11-12] MEDS: SENNA 8.6 MG TAB PO SCH (08:07)
[2018-11-12] MEDS: MIRABEGRON ER 25 MG TAB PO SCH (08:11)
[2018-11-12] MEDS ORDERED: VANCOMYCIN CONSULT ACTIVE PRN (10:47)
[2018-11-12 11:12] LABS: Basophils # (auto) 0.03 K/uL (0-0.2); Basophils % (auto) 0.3 %; Eosinophils # (auto) 0.16 K/uL (0-0.5); Eosinophils % (auto) 1.6 %; Hemoglobin 9.6 g/dL (14.0-18.0); Immature Granulocytes # (auto) 0.09 K/uL (0.00-0.02); Immature Granulocytes % (auto) 0.9 %; Lymphocytes # (auto) 2.16 K/uL (1.2-3.4); Mean Corpuscular Volume 83.3 fL (80-100); Monocytes # (auto) 1.13 K/uL (0.11-0.59); Neutrophils # (auto) 6.73 K/uL (1.4-6.5); Neutrophils % (auto) 65.2 %; Platelet Count 293 K/uL (130-400); RDW Coefficient of Variation 15.6 % (11.5-14.5); RDW Standard Deviation 47.6 fL (36.4-46.3); Red Blood Count 3.72 M/uL (4.7-6.1)
[2018-11-12 11:29] LABS: BUN Creatinine Ratio 22.1 (10-20); Calcium 8.7 mg/dl (8.5-10.1); Creatinine Clr Calc Pharmacy 81.9 ml/min; Est GFR (African American) 102.4; Est GFR (Non-African American) 88.3; Potassium 4.2 mmol/L (3.5-5.1)
--- NOTE | 2018-11-12 11:42 | Family Medicine Progress Note ---
Date of Service November 12, 2018 Assessment & Plan (1) Altered mental status: Mr. Robertson is a 78 year old male with a past medical history of recent mitral valve replacement, AAA s/p repair, COPD, renal cell carcinoma, hx of CVA, depression and normal pressure hydrocephalus who presented to [facility] emergency department due to altered mental status and chest pain. Altered Mental Status -alert to person, time, only, not to place but knows the president of [facility]. appears to be at or near cognitive baseline -initial etiology of cognitive disturbance unclear -Head CT without acute changes -afebrile, normal WCC, UA and CXR w/out evidence for infection. -inital bcx NGTD - repeat blood cx /2 showing MRSA +, 2/ NGTD -will emprically treat for presumed bactermia with Vanc and await third set of blood cx -ammonia and TSH levels unremarkable -no cognitive deficits per patients daughter at baseline -continue to follow -ddx: delirium, infectious, electrolyte abnormality, dehydration Chest Pain - improving per patient -reproducible on examination in region of sternotomy, but on 11/12 some opaque drainage noted from sternotomy site and increased erythema over the surgical site. -ongoing per patient's daughter since recent surgery -EKG w/nonspecific ST wave changes -trop levels unremarkable -findings not suspicious for ACS -ECHO result non-suspicious for pericarditis, endocarditis though cannot completely rule out, however given neg blood cx unlikley Possible Bacteremia - 1/2 + Blood cx for MRSA - will await final cx for both sites - Repeat Blood cx to confirm - Start Empiric Vancomycin Leukocytosis - resolved - patient remains afebrile, clinically improving - 1/2 + Blood cx for Staph, will f/u 2nd cx to confirm if contaminant as patient clinically improved - f/u urine cx HTN/CAD -continue metoprolol, furosemide and potassium supplementation -continue amiodarone though h/o arrhythmia unconfirmed Abdominal discomfort - resolved - possibly due to constipation - cholelithiasis, hiatal hernia on CT, no evidence of cholecystitis on RUQ US -CT abdomen and pelvis with rectosigmoid fecal impaction and mod/severe constipation. No bowel obstruction. -s/p one dose of miralax in ED -continue bowel regimen Weakness -PT/OT consult, family refusing placement, would like him to come home - parents discussing plans for hospice care with [facility] History of CVA -continue aspirin and atorvastatin COPD -continue home inhaler Depression -continue fluoxetine Urinary symptoms -continue mirabegron Malignant Neoplasm of Right Kidney -listed on home problem list, and seen on CT here. -unsure if patient is pursuing treatment for this, confirm with family tomorrow Code status: Unable to confirm w/patient given AMS. full code at this time. Disposition: patients daughter coordinated with patients daughter for [facility] PT OT DVT prophylaxis: 5,000 heparin q12h (2) Weakness: (3) Depression: (4) History of CVA (cerebrovascular accident): (5) COPD (chronic obstructive pulmonary disease): (6) History of coronary artery bypass graft x 2: (7) Hypertension: (8) BPH (benign prostatic hyperplasia): (9) Chest pain: (10) Constipation: (11) Malignant neoplasm of right kidney: Supervising Physician Co-Signing Physician Notes Patient seen and examined independently of Dr. Monk. Agree with history, exam findings, assessment and plan of care as outlined. In brief, Mr. Robertson is a 78 year old male with hx of recent mitral valve replacement, COPD, CVA, depression, normal pressure hydrocephalus and RCC admitted for AMS and CP. 1. AMS seems to be resolved and without evidence of infection or metabolic disturbance as the cause of his acute change. Will continue to monitor. Wonder if there is some underlying cognitive deficit that contributed to this. 2. CP is non-cardiac in nature. sternotomy site is tender and mildly warm with increased erythema when compared to prior exams and today with yellow/opaque drainage from the sternotomy site. Will treat for presumed cellulitis/wound site infection with vanc given recent blood culture (1 of 4) growing MRSA. If blood cultures are negative, will de-escalate to oral medication to cover MRSA. Repeat Echo without signs of new vegetation on valve. 3. HTN/CAD/hx CVA: continue home metoprolol, ASA, atorvastatin, lasix; on amio although no hx of afib. 5. RCC (right kidney): not getting active treatment for this--?hospice eval today. Awaiting to hear decision of whether he qualifies for hospice. Dipo: plans for discharge home with hospice on Tuesday. Subjective No acute events overnight. Cognitive status at baseline. Substernal chest pain continues to improve .He denies , fevers, chills, sob, cough, nausea. vomiting, abdominal pain, calf pain. Constitutional: no fever and no chills Respiratory: no cough and no dyspnea Cardiovascular: + chest pain; no syncope, no edema and no calf pain Gastrointestinal: no abdominal pain (improved), no nausea, no vomiting and no change in stools Integumentary: + rash (Face) Physical Exam Vital Signs (Past 24 Hours): Last Vital Signs Temp 36.5 C 11/12/18 08:00 Pulse 76 11/12/18 08:00 Resp 20 11/12/18 08:00 BP 142/89 H 11/12/18 08:00 Pulse Ox 93 11/12/18 08:00 Constitutional: WD/WN, vitals as above no acute distress Eyes: PERRL and EOM intact bilaterally ENMT: external ear and nose normal, oropharynx normal Neck: trachea midline, no thyromegaly Respiratory: normal respiratory effort, lungs clear to auscultation Cardiovascular: RRR, no murmur, no edema Chest (Breasts): Additional Comments: erythema long previous sternotomy, new onset oozing serous fluid from wound, tenderness to palpation Gastrointestinal (Abdomen): normal bowel sounds, soft, nontender, no hepatosplenomegaly Inspection/Auscultation: abdomen normal to inspection and normal bowel sounds Percussion/Palpation: abdomen soft; abdomen nontender, no guarding, abdomen not rigid, no hepatosplenomegaly and no hepatomegaly Musculoskeletal: Head/Neck/Chest: normocephalic and head atraumatic Skin: no rashes, warm and dry Neurologic: PERRL, EOMI, accommodation nl, no face palsy, no dysarthria awake Psychiatric: Orientation: alert, oriented to person and oriented to time; + not oriented to place Results & Data Laboratory Results Laboratory Results WBC 10.30 K/uL (4.8-10.8) 11/12/18 11:00 RBC 3.72 M/uL (4.7-6.1) L 11/12/18 11:00 Hgb 9.6 g/dL (14.0-18.0) L 11/12/18 11:00 Hct 31.0 % (42-52) L 11/12/18 11:00 MCV 83.3 fL (80-100) 11/12/18 11:00 MCH 25.8 pg (25-34) 11/12/18 11:00 MCHC 31.0 g/dL (32-36) L 11/12/18 11:00 RDW Std Deviation 47.6 fL (36.4-46.3) H 11/12/18 11:00 RDW Coeff of Juan C 15.6 % (11.5-14.5) H 11/12/18 11:00 Plt Count 293 K/uL (130-400) 11/12/18 11:00 MPV 10.0 fL (7.4-10.4) 11/12/18 11:00 Immature Gran % (Auto) 0.9 % 11/12/18 11:00 Neut % (Auto) 65.2 % 11/12/18 11:00 Lymph % (Auto) 21.0 % 11/12/18 11:00 [place] % (Auto) 11.0 % 11/12/18 11:00 Eos % (Auto) 1.6 % 11/12/18 11:00 Baso % (Auto) 0.3 % 11/12/18 11:00 Immature Gran # (Auto) 0.09 K/uL (0.00-0.02) H 11/12/18 11:00 Neut # (Auto) 6.73 K/uL (1.4-6.5) H 11/12/18 11:00 Lymph # (Auto) 2.16 K/uL (1.2-3.4) 11/12/18 11:00 [place]kin # (Auto) 1.13 K/uL (0.11-0.59) H 11/12/18 11:00 Eos # (Auto) 0.16 K/uL (0-0.5) 11/12/18 11:00 Baso # (Auto) 0.03 K/uL (0-0.2) 11/12/18 11:00 ESR > 90 mm/hr (0-14) H 11/10/18 07:08 PT 11.8 Seconds (9.0-12.0) 11/06/18 19:04 INR 1.2 (0.9-1.1) H 11/06/18 19:04 Sodium 136 mmol/L (136-145) 11/12/18 11:00 Potassium 4.2 mmol/L (3.5-5.1) 11/12/18 11:00 Chloride 104 mmol/L (98-107) 11/12/18 11:00 Carbon Dioxide 26 mmol/L (21-32) 11/12/18 11:00 Anion Gap 6.0 (3-11) 11/12/18 11:00 BUN 16 mg/dl (7-18) 11/12/18 11:00 Creatinine 0.74 mg/dl (0.6-1.4) 11/12/18 11:00 Est Cr Clr Drug Dosing 81.9 ml/min 11/12/18 11:00 Est GFR ( Amer) 102.4 11/12/18 11:00 Est GFR (Non-Af Amer) 88.3 11/12/18 11:00 BUN/Creatinine Ratio 22.1 (10-20) H 11/12/18 11:00 Glucose 74 mg/dl (70-99) 11/12/18 11:00 POC Lactic Acid Hank 1.59 mmol/L (0.90-1.70) 11/06/18 19:06 Calcium 8.7 mg/dl (8.5-10.1) 11/12/18 11:00 Phosphorus 2.7 mg/dl (2.5-4.9) 11/06/18 19:04 Magnesium 1.7 mg/dl (1.8-2.4) L 11/06/18 19:04 Total Bilirubin 0.3 mg/dl (0.2-1) 11/11/18 07:48 AST 10 U/L (15-37) L 11/11/18 07:48 ALT 14 U/L (12-78) 11/11/18 07:48 Alkaline Phosphatase 87 U/L (45-117) 11/11/18 07:48 Ammonia 17.0 umol/L (11-32) 11/07/18 05:24 Troponin I < 0.015 ng/ml (0-0.045) 11/07/18 10:40 C-Reactive Protein 4.63 mg/dl (0-0.29) H 11/09/18 10:13 Total Protein 6.7 gm/dl (6.4-8.2) 11/11/18 07:48 Albumin 1.8 gm/dl (3.4-5.0) L 11/11/18 07:48 Globulin 4.9 gm/dl (2.5-4.0) H 11/11/18 07:48 Albumin/Globulin Ratio 0.4 (0.9-2) L 11/11/18 07:48 TSH 0.994 uIu/ml (0.300-4.500) 11/07/18 05:24 Urine Color Dark Yellow 11/06/18 22:20 Urine Appearance Clear (Clear) 11/06/18 22:20 Urine pH 5.0 (4.5-7.5) 11/06/18 22:20 Ur Specific [place] 1.023 (1.000-1.030) 11/06/18 22:20 Urine Protein Trace (Negative) H 11/06/18 22:20 Urine Glucose (UA) Negative (Negative) 11/06/18 22:20 Urine Ketones Negative (Negative) 11/06/18 22:20 Urine Blood 1+ (Negative) H 11/06/18 22:20 Urine Nitrite Negative (Negative) 11/06/18 22:20 Urine Bilirubin Negative (Negative) 11/06/18 22:20 Urine Urobilinogen Negative (Negative) 11/06/18 22:20 Ur Leukocyte Esterase Negative (Negative) 11/06/18 22:20 Urine WBC (Auto) 0 /hpf (0-5) 11/06/18 22:20 Urine RBC (Auto) 0-4 /hpf (0-4) 11/06/18 22:20 U Hyaline Cast (Auto) 0 /lpf (0-5) 11/06/18 22:20 U Epithel Cells (Auto) 0-5 /lpf (0-5) 11/06/18 22:20 Urine Bacteria (Auto) Negative (Negative) 11/06/18 22:20 Bld Cult Staph aureus PCR Positive (Negative) A 11/10/18 09:12 Blood Culture MRSA PCR Positive (Negative) A 11/10/18 09:12 Medications Administered Acetaminophen (Tylenol) 650 mg PO Q6H PRN PRN Reason: Pain Stop: 12/07/18 03:08 Last Admin: 11/10/18 05:25 Dose: 650 mg Documented by: [id number] Admin: 11/07/18 10:08 Dose: 650 mg Documented by: [id number] Albuterol (Combivent Respimat) 1 puffs INH QID NIR Stop: 12/12/18 12:59 Last Admin: 11/12/18 14:15 Dose: 1 puffs Documented by: [id number] Amiodarone HCl (Cordarone) 400 mg PO DAILY NIR Stop: 12/07/18 08:59 Last Admin: 11/12/18 08:03 Dose: 400 mg Documented by: [id number] Admin: 11/11/18 08:18 Dose: 400 mg Documented by: [id number] Admin: 11/10/18 08:18 Dose: 400 mg Documented by: [id number] Admin: 11/09/18 07:15 Dose: 400 mg Documented by: [id number] Admin: 11/08/18 08:39 Dose: 400 mg Documented by: [id number] Admin: 11/07/18 07:32 Dose: 400 mg Documented by: [id number] Aspirin (Ecotrin Ectab) 81 mg PO DAILY [facility] Stop: 12/07/18 08:59 Last Admin: 11/12/18 08:03 Dose: 81 mg Documented by: [id number] Admin: 11/11/18 08:19 Dose: 81 mg Documented by: [id number] Admin: 11/10/18 08:18 Dose: 81 mg Documented by: [id number] Admin: 11/09/18 07:15 Dose: 81 mg Documented by: [id number] Admin: 11/08/18 08:39 Dose: 81 mg Documented by: [id number] Admin: 11/07/18 07:32 Dose: 81 mg Documented by: [id number] Atorvastatin Calcium (Lipitor) 40 mg PO DAILY [facility] Stop: 12/07/18 08:59 Last Admin: 11/12/18 08:04 Dose: 40 mg Documented by: [id number] Admin: 11/11/18 08:19 Dose: 40 mg Documented by: [id number] Admin: 11/10/18 08:18 Dose: 40 mg Documented by: [id number] Admin: 11/09/18 07:15 Dose: 40 mg Documented by: [id number] Admin: 11/08/18 08:40 Dose: 40 mg Documented by: [id number] Admin: 11/07/18 07:32 Dose: 40 mg Documented by: [id number] Fluoxetine HCl (Prozac) 40 mg PO DAILY [facility] Stop: 12/07/18 08:59 Last Admin: 11/12/18 08:07 Dose: 40 mg Documented by: [id number] Admin: 11/11/18 08:16 Dose: 40 mg Documented by: [id number] Admin: 11/10/18 08:18 Dose: 40 mg Documented by: [id number] Admin: 11/09/18 07:15 Dose: 40 mg Documented by: [id number] Admin: 11/08/18 08:40 Dose: 40 mg Documented by: [id number] Admin: 11/07/18 07:33 Dose: 40 mg Documented by: [id number] Heparin Sodium (Porcine) (Heparin Sodium (Porcine)) 5,000 units SQ Q12 NIR Stop: 12/07/18 08:59 Last Admin: 11/12/18 08:05 Dose: 5,000 units Documented by: [id number] Cosigned by: [id number] Admin: 11/11/18 21:57 Dose: 5,000 units Documented by: [id number] Cosigned by: [id number] Admin: 11/11/18 08:17 Dose: 5,000 units Documented by: [id number] Cosigned by: [id number] Admin: 11/10/18 20:40 Dose: 5,000 units Documented by: [id number] Cosigned by: [id number] Admin: 11/10/18 08:18 Dose: 5,000 units Documented by: [id number] Cosigned by: [id number] Admin: 11/09/18 20:29 Dose: 5,000 units Documented by: [id number] Cosigned by: [id number] Admin: 11/09/18 07:14 Dose: 5,000 units Documented by: [id number] Cosigned by: [id number] Admin: 11/08/18 21:39 Dose: Not Given Documented by: [id number] Admin: 11/08/18 08:40 Dose: 5,000 units Documented by: [id number] Cosigned by: [id number] Admin: 11/07/18 22:09 Dose: 5,000 units Documented by: [id number] Cosigned by: [id number] Admin: 11/07/18 07:36 Dose: 5,000 units Documented by: [id number] Cosigned by: [id number] Lactobacillus Acidophilus (Floranex) 4 tab PO DAILY NIR Stop: 12/07/18 08:59 Last Admin: 11/12/18 08:03 Dose: 4 tab Documented by: [id number] Admin: 11/11/18 08:18 Dose: 4 tab Documented by: [id number] Admin: 11/10/18 08:18 Dose: 4 tab Documented by: [id number] Admin: 11/09/18 07:15 Dose: 4 tab Documented by: [id number] Admin: 11/08/18 08:39 Dose: 4 tab Documented by: [id number] Admin: 11/07/18 07:32 Dose: 4 tab Documented by: [id number] Magnesium Hydroxide (Milk Of Magnesia) 30 ml PO Q6H PRN PRN Reason: Constipation Stop: 12/07/18 05:22 Last Admin: 11/07/18 14:06 Dose: 30 ml Documented by: [id number] Metoprolol Tartrate (Lopressor) 12.5 mg PO BID NIR Stop: 12/07/18 08:59 Last Admin: 11/12/18 08:06 Dose: 12.5 mg Documented by: [id number] Admin: 11/11/18 21:57 Dose: 12.5 mg Documented by: [id number] Admin: 11/11/18 08:20 Dose: 12.5 mg Documented by: [id number] Admin: 11/10/18 20:41 Dose: 12.5 mg Documented by: [id number] Admin: 11/10/18 08:18 Dose: 12.5 mg Documented by: [id number] Admin: 11/09/18 20:29 Dose: 12.5 mg Documented by: [id number] Admin: 11/09/18 07:15 Dose: 12.5 mg Documented by: [id number] Admin: 11/08/18 21:39 Dose: Not Given Documented by: [id number] Admin: 11/08/18 08:40 Dose: 12.5 mg Documented by: [id number] Admin: 11/07/18 22:09 Dose: 12.5 mg Documented by: [id number] Admin: 11/07/18 07:32 Dose: 12.5 mg Documented by: [id number] Mirabegron (Myrbetriq Er) 25 mg PO DAILY NIR Stop: 12/07/18 08:59 Last Admin: 11/12/18 08:11 Dose: 25 mg Documented by: [id number] Admin: 11/11/18 08:19 Dose: 25 mg Documented by: [id number] Admin: 11/10/18 08:18 Dose: 25 mg Documented by: [id number] Admin: 11/09/18 07:15 Dose: 25 mg Documented by: [id number] Admin: 11/08/18 08:40 Dose: 25 mg Documented by: [id number] Admin: 11/07/18 07:33 Dose: 25 mg Documented by: [id number] Multivitamins (Multivitamin Tab) 1 tab PO DAILY NIR Stop: 12/07/18 08:59 Last Admin: 11/12/18 08:06 Dose: 1 tab Documented by: [id number] Admin: 11/11/18 08:19 Dose: 1 tab Documented by: [id number] Admin: 11/10/18 08:18 Dose: 1 tab Documented by: [id number] Admin: 11/09/18 07:15 Dose: 1 tab Documented by: [id number] Admin: 11/08/18 08:40 Dose: 1 tab Documented by: [id number] Admin: 11/07/18 07:33 Dose: 1 tab Documented by: [id number] Multivitamins/Minerals (Caltrate Plus) 1 tab PO DAILY NIR Stop: 12/07/18 08:59 Last Admin: 11/12/18 08:02 Dose: 1 tab Documented by: [id number] Admin: 11/11/18 08:16 Dose: 1 tab Documented by: [id number] Admin: 11/10/18 08:18 Dose: 1 tab Documented by: [id number] Admin: 11/09/18 07:16 Dose: 1 tab Documented by: [id number] Admin: 11/08/18 08:39 Dose: 1 tab Documented by: [id number] Admin: 11/07/18 07:31 Dose: 1 tab Documented by: [id number] Oxycodone HCl (Roxicodone Immediate Rel) 5 mg PO Q4H PRN PRN Reason: MODERATE TO SEVERE PAIN Stop: 11/21/18 03:08 Last Admin: 11/12/18 12:23 Dose: 5 mg Documented by: [id number] Admin: 11/09/18 10:09 Dose: 5 mg Documented by: [id number] Admin: 11/08/18 08:40 Dose: 5 mg Documented by: [id number] Pantoprazole Sodium (Protonix) 40 mg PO DAILY NIR Stop: 12/07/18 08:59 Last Admin: 11/12/18 08:06 Dose: 40 mg Documented by: [id number] Admin: 11/11/18 08:16 Dose: 40 mg Documented by: [id number] Admin: 11/10/18 08:18 Dose: 40 mg Documented by: [id number] Admin: 11/09/18 07:15 Dose: 40 mg Documented by: [id number] Admin: 11/08/18 08:41 Dose: 40 mg Documented by: [id number] Admin: 11/07/18 07:33 Dose: 40 mg Documented by: [id number] Potassium Chloride (Klor-Con M20) 20 meq PO DAILY NIR Stop: 12/07/18 08:59 Last Admin: 11/12/18 08:05 Dose: 20 meq Documented by: [id number] Admin: 11/11/18 08:17 Dose: 20 meq Documented by: [id number] Admin: 11/10/18 08:18 Dose: 20 meq Documented by: [id number] Admin: 11/09/18 07:14 Dose: 20 meq Documented by: [id number] Admin: 11/08/18 08:40 Dose: 20 meq Documented by: [id number] Admin: 11/07/18 07:32 Dose: 20 meq Documented by: [id number] Sennosides (Senokot) 8.6 mg PO QAM NIR Stop: 12/07/18 08:59 Last Admin: 11/12/18 08:07 Dose: 8.6 mg Documented by: [id number] Admin: 11/11/18 08:19 Dose: 8.6 mg Documented by: [id number] Admin: 11/10/18 08:18 Dose: 8.6 mg Documented by: [id number] Admin: 11/09/18 07:14 Dose: 8.6 mg Documented by: [id number] Admin: 11/08/18 08:40 Dose: 8.6 mg Documented by: [id number] Admin: 11/07/18 07:40 Dose: 8.6 mg Documented by: [id number] Discontinued Medications Albuterol (Duoneb) 3 ml INH QIDR NIR Stop: 12/07/18 07:59 Last Admin: 11/12/18 07:09 Dose: Not Given Documented by: [id number] Admin: 11/11/18 19:33 Dose: Not Given Documented by: [id number] Admin: 11/11/18 15:01 Dose: Not Given Documented by: [id number] Admin: 11/11/18 10:59 Dose: Not Given Documented by: [id number] Admin: 11/11/18 07:08 Dose: 3 ml Documented by: [id number] Admin: 11/10/18 19:20 Dose: 3 ml Documented by: [id number] Admin: 11/10/18 15:45 Dose: 3 ml Documented by: [id number] Admin: 11/10/18 11:19 Dose: Not Given Documented by: [id number] Admin: 11/10/18 07:13 Dose: Not Given Documented by: [id number] Admin: 11/09/18 19:31 Dose: 3 ml Documented by: [id number] Admin: 11/09/18 15:56 Dose: 3 ml Documented by: [id number] Admin: 11/09/18 11:28 Dose: 3 ml Documented by: [id number] Admin: 11/09/18 07:42 Dose: 3 ml Documented by: [id number] Admin: 11/08/18 19:03 Dose: Not Given Documented by: [id number] Admin: 11/08/18 15:25 Dose: 3 ml Documented by: [id number] Admin: 11/08/18 11:11 Dose: 3 ml Documented by: [id number] Admin: 11/08/18 07:04 Dose: 3 ml Documented by: [id number] Admin: 11/07/18 19:16 Dose: 3 ml Documented by: [id number] Admin: 11/07/18 15:23 Dose: 3 ml Documented by: [id number] Admin: 11/07/18 11:11 Dose: 3 ml Documented by: [id number] Admin: 11/07/18 07:03 Dose: 3 ml Documented by: [id number] Sodium Chloride (Nss 1000ml) 250 mls @ 999 mls/hr IV .Q16M ONE Stop: 11/06/18 17:47 Last Infusion: 11/06/18 19:08 Dose: 0 mls/hr Documented by: [id number] Admin: 11/06/18 18:33 Dose: 999 mls/hr Documented by: [id number] Sodium Chloride (Nss 1000ml) 250 mls @ 999 mls/hr IV .Q16M ONE Stop: 11/06/18 22:11 Last Infusion: 11/06/18 22:37 Dose: 0 mls/hr Documented by: [id number] Admin: 11/06/18 22:07 Dose: 999 mls/hr Documented by: [id number] Vancomycin HCl 1,750 mg/ (Sodium Chloride) 535 mls @ 200 mls/hr IV 1215 NIR Stop: 11/12/18 16:00 Last Infusion: 11/12/18 15:30 Dose: 0 mls/hr Documented by: [id number] Admin: 11/12/18 12:18 Dose: 200 mls/hr Documented by: [id number] Ioversol (Optiray 320 100ml) 90 ml IV ONCE PRN PRN Reason: Interaction Checking Stop: 11/10/18 20:35 Last Admin: 11/06/18 20:37 Dose: 90 ml Documented by: [id number] Polyethylene Glycol (Miralax Powder Packet) 17 gm PO ONE ONE Stop: 11/06/18 21:42 Last Admin: 11/06/18 22:37 Dose: 17 gm Documented by: [id number] Resident Activity Tracking Resident Involvement: Resident Care Provided Care Provided: Adult Hospital Medicine
[2018-11-12] MEDS ORDERED: VANCOMYCIN HCL 1,750 MG in SODIUM CHLORIDE 0.9% 500 ML IV SCH (12:15)
[2018-11-12] MEDS: OXYCODONE HCL IR 5 MG TAB (IMMEDIATE RELEASE) PO PRN ×2 (12:23→19:53)
[2018-11-12] MEDS: IPRATROPIUM BROMIDE/ALBUTEROL respimat INH INH SCH ×3 (14:15→20:16)
--- NOTE | 2018-11-12 17:38 | Pharmacy Report ---
Pharmacy Abx Initial Consult - Date of Service November 12, 2018 - Pharmacy Dosing Scope Date of Consult: 11/12/18 Consultation requested by: Dr. Monk Pharmacy is consulted to initiate Vancomycin IV dosing therapy, order appropriate labs and adjust drug dose/frequency. - Subjective The patient is a 78 year old M admitted on 11/07/18 01:31. - Objective Height: 5 ft 9 in Weight: 70.4 kg Vital Signs (Past 12hrs): Vital Signs Temp Pulse Resp BP BP Pulse Ox 11/12/18 15:00 36.7 C 71 18 130/80 98 11/12/18 08:00 36.5 C 76 20 142/89 H 93 Lab Results (24hrs): Laboratory Tests (24 Hours) 11/12/18 11/12/18 11:00 11:00 WBC 10.30 Neut # (Auto) 6.73 H Creatinine 0.74 Est Cr Clr Drug Dosing 81.9 Micro Results: 11/12/18 11:00 Blood Culture - Pending Blood 11/12/18 11:00 Blood Culture - Pending Blood 11/06/18 18:50 Blood Culture - Final Blood No growth 11/06/18 19:01 Blood Culture - Final Blood No growth - Risk Factors for Resistance * Current hospitalization > 5 days - Assessment & Plan Assessment 78 year old M presenting to the ED due to AMS and chest pain on 11/07/18. Initial blood cultures showed no growth but repeat blood culture 1/2 on 11/10/18 showing +MRSA. PCR is +MRSA. 2/2 repeat culture showing NGTD. Repeat cultures collected on 11/12/18 are currently pending. Patient clinically improving. Plan Vancomycin for treatment of Bacteremia with +MRSA Vancomycin IV * Estimated PK Parameters: Vd 0.7 L/kg, Liban 0.072 hr-1, t1/2 ~10 hr * Loading dose: 1750 mg (25 mg/kg) * Maintenance dose: 1000 mg IV (14 mg/kg) every 12 hours * Goal trough level for Bacteremia +MRSA : ~20 mcg/mL * Trough level ordered for 11/14/18 at 1130 Pharmacy will continue to follow and will adjust dose/frequency as necessary. Thank you.
[2018-11-12] MEDS: KETOCONAZOLE 2% CR 15 GM TUBE EXT SCH (20:25)
[2018-11-13] MEDS: VANCOMYCIN HCL 1,000 MG in SODIUM CHLORIDE 0.9% 250 ML IV SCH ×2 (01:19→12:30)
[2018-11-13 07:51] LABS: Creatinine Clr Calc Pharmacy 78.7 ml/min; Est GFR (African American) 100.7; Est GFR (Non-African American) 86.9
[2018-11-13 08:11] LABS: Hematocrit (blood only) 34.1 % (42-52); Hemoglobin 10.5 g/dL (14.0-18.0); Mean Corpuscular Volume 83.8 fL (80-100); Mean Platelet Volume 9.8 fL (7.4-10.4); Platelet Count 307 K/uL (130-400); RDW Coefficient of Variation 15.6 % (11.5-14.5); RDW Standard Deviation 47.6 fL (36.4-46.3); Red Blood Count 4.07 M/uL (4.7-6.1); White Blood Count 9.94 K/uL (4.8-10.8)
[2018-11-13 08:23] LABS: Mean Corpuscular Hgb Conc 30.8 g/dL (32-36)
[2018-11-13] MEDS: ATORVASTATIN 40 MG TAB PO SCH (08:38)
[2018-11-13] MEDS: LACTOBACILLUS ACIDOPHILUS (FLORANEX) TAB PO SCH (08:38)
[2018-11-13] MEDS: SENNA 8.6 MG TAB PO SCH (08:38)
[2018-11-13] MEDS: MULTIVITAMIN TAB PO SCH (08:38)
[2018-11-13] MEDS: CALCIUM 600MG + VIT D 400 IU TAB PO SCH (08:38)
[2018-11-13] MEDS: FLUOXETINE HCL 20 MG CAP PO SCH (08:38)
[2018-11-13] MEDS: MIRABEGRON ER 25 MG TAB PO SCH (08:38)
[2018-11-13] MEDS: PANTOprazole 40 MG TAB PO SCH (08:38)
[2018-11-13] MEDS: IPRATROPIUM BROMIDE/ALBUTEROL respimat INH INH SCH ×4 (08:38→21:48)
[2018-11-13] MEDS: ASPIRIN 81 MG ECTAB PO SCH (08:38)
[2018-11-13] MEDS: METOPROLOL TARTRATE 25 MG TAB PO SCH ×2 (08:38→22:15)
[2018-11-13] MEDS: AMIODARONE 200 MG TAB PO SCH (08:38)
[2018-11-13] MEDS: POTASSIUM CHLORIDE 20 MEQ TABCR PO SCH (08:38)
[2018-11-13] MEDS: KETOCONAZOLE 2% CR 15 GM TUBE EXT SCH ×2 (08:39→21:49)
[2018-11-13] MEDS: HEPARIN SOD 5,000 UNIT/0.5 ML VIAL SQ SCH ×2 (08:42→22:15)
[2018-11-13] MEDS: OXYCODONE HCL IR 5 MG TAB (IMMEDIATE RELEASE) PO PRN (11:16)
--- NOTE | 2018-11-13 16:37 | Family Medicine Progress Note ---
Date of Service November 13, 2018 Assessment & Plan (1) Altered mental status: 78-year-old male was admitted on 07 November 2017 for altered mental status and chest pain. Altered mental status: Reportedly per initial EMS reports patient had behavioral issues, was not complying with instructions, patient was combative with his . CT head without acute changes. Normal TSH and ammonia. No cognitive deficits per daughter at baseline. Unclear initial cause but patient is improving. See BCx discussion below. UA was clear. Question of underlying cognitive deficit contributing to this. Possible bacteremia: Initial 25Feb BCx no growth. Mar BCx single tube positive for MRSA. Follow-on BCx pending. Mar started on empiric vancomycin. - Will consult infectious disease for recommendations. Chest pain: Reproducible on exam in the region of his sternotomy is related to his recent mitral valve replacement in mid-September 2018. Negative troponin and nonspecific ST changes on EKG. TTE on noted EF 50-55%, prosthetic mitral valve is well-seated, no obvious valvular vegetations, akinesis of the inferior base, and compared to prior [id number] study there were no significant changes. Anemia: Admit hemoglobin 9.7, since improved. Monitoring. Constipation: As noted on CT a/p. Started on senna scheduled and as needed MiraLAX and Colace. Patient presently denies symptomatic constipation. Right renal masses: Two complex right renal lesions measuring up to 3.[address] a/p, read as concerning for renal neoplasm. Follow on renal u/s concerning for same. Per discussion with daughter, patient is not presently pursuing treatment for this known cancer. Hiatal hernia, cholelithiasis: As seen on initial single view chest x-ray and CT a/p. Ongoing medical issues: - Hypertension: On metoprolol. - Hyperlipidemia: On atorvastatin. - CAD: On aspirin. - COPD: On scheduled albuterol. - GERD: On pantoprazole. - Depression: On Prozac. - Urinary symptoms: On Myrbetriq. - CVA, hydrocephalus. - Is on home amiodarone and potassium supplements for unknown reason. Code status: Full code. Diet: Heart healthy. DVT prophy: Heparin 5000 units every 12 hours PT/OT: Ongoing. Disbo: Admitted to [facility]. Normally lives at home with . Plan for discharge home with [facility] per . - Spoke with patient's daughter (Louisa Robertson, ) on the phone today around 4 PM. We did a brief review of his hospital stay. She has questions about possible relation to hydrocephalus. She also noted his multiple encounters with inpatient and outpatient medical teams in the recent weeks. Overall the plan is for him to go home via [facility]. She says they do have concerns about having enough caregivers at home to take care of him adequately. They are also looking into him going to a veterans home in the near term. Regarding discharge today (), she would prefer to get the results of the repeat blood cultures and know if he needs to be on long-term antibiotics prior to his being discharged. We will work towards his discharge home tomorrow. - Regarding going home on hospice, she was in favor of decreasing his overall medication burden. --- He would likely be discharged on amiodarone, Lasix, and metoprolol. (2) Chest pain: (3) History of mitral valve replacement with mechanical valve: (4) Anemia: (5) Constipation: (6) Malignant neoplasm of right kidney: (7) Hiatal hernia: (8) Cholelithiasis: (9) Hypertension: (10) Hyperlipidemia: (11) Coronary artery disease: (12) COPD (chronic obstructive pulmonary disease): (13) GERD (gastroesophageal reflux disease): (14) Depression: (15) BPH (benign prostatic hyperplasia): (16) History of CVA (cerebrovascular accident): (17) History of hydrocephalus: Supervising Physician Co-Signing Physician Notes Patient seen and examined with the resident. Agree with history, physical exam, assessment and plan with the following updates/corrections: 78yo M w/ hx of MVR in 09/2018 who presented with altered mental status and chest pain; now with possible MRSA bacteremia. 1) MRSA bacteremia - 1/4 bottles in one set; no other currently positive. Unclear whether this is contaminant or represents true infection as there was concern for sternomoty incision cellulitis which could represent source. Currently on vancomycin. ID consult to assist with any actual concern for bacteremia. 2) Altered mental status - Per report, was acute onset. Unclear etiology (infectious vs metabolic vs other), but is resolving at this time. Patient would like to go home and daughter would like him home with hospice. Will discuss tomorrow after ID recs for MRSA. Subjective Found patient sitting upright. He said that he would like to get out of the hospital but acknowledged that he was still in the hospital due to a potential "blood infection". When asked orientation questions, he knew he was in [facility] but was initially unfamiliar with the date stating he does not keep track of this anymore. Ultimately he said it was October 2018. He says he still has some soreness around the incision of his chest but he denies any direct chest pain, shortness of breath, or any other acute concerns. Physical Exam Vital Signs (Past 24 Hours): Last Vital Signs Temp 36.4 C L 11/13/18 16:18 Pulse 72 11/13/18 16:18 Resp 16 11/13/18 16:18 BP 148/90 H 11/13/18 16:18 Pulse Ox 95 11/13/18 16:18 Physical Exam: General Appearance: Awake, alert & oriented to person, place, and partially to time, comfortable in general, NAD. Has very dry skin and a large casper. CV: +S1S2 RRR, no murmur. Sternotomy scar appears to be healing well with small amount of serous drainage superiorly. Skin does not appear particularly erythematous or edematous. Overlying dressing is mostly dry and otherwise intact. Pulm: Clear to auscultation throughout. Abdomen: +BS, soft, non-tender, non-distended. Extremities: No pedal edema or calf tenderness. Moving all extremities naturally and easily. Neuro: Difficulty with ambulation. Fatigues easily. Results & Data Laboratory Results Laboratory Results WBC 9.94 K/uL (4.8-10.8) 11/13/18 07:56 RBC 4.07 M/uL (4.7-6.1) L 11/13/18 07:56 Hgb 10.5 g/dL (14.0-18.0) L 11/13/18 07:56 Hct 34.1 % (42-52) L 11/13/18 07:56 MCV 83.8 fL (80-100) 11/13/18 07:56 MCH 25.8 pg (25-34) 11/13/18 07:56 MCHC 30.8 g/dL (32-36) L 11/13/18 07:56 RDW Std Deviation 47.6 fL (36.4-46.3) H 11/13/18 07:56 RDW Coeff of Juan C 15.6 % (11.5-14.5) H 11/13/18 07:56 Plt Count 307 K/uL (130-400) 11/13/18 07:56 MPV 9.8 fL (7.4-10.4) 11/13/18 07:56 Immature Gran % (Auto) 0.9 % 11/12/18 11:00 Neut % (Auto) 65.2 % 11/12/18 11:00 Lymph % (Auto) 21.0 % 11/12/18 11:00 [place] % (Auto) 11.0 % 11/12/18 11:00 Eos % (Auto) 1.6 % 11/12/18 11:00 Baso % (Auto) 0.3 % 11/12/18 11:00 Immature Gran # (Auto) 0.09 K/uL (0.00-0.02) H 11/12/18 11:00 Neut # (Auto) 6.73 K/uL (1.4-6.5) H 11/12/18 11:00 Lymph # (Auto) 2.16 K/uL (1.2-3.4) 11/12/18 11:00 [place] # (Auto) 1.13 K/uL (0.11-0.59) H 11/12/18 11:00 Eos # (Auto) 0.16 K/uL (0-0.5) 11/12/18 11:00 Baso # (Auto) 0.03 K/uL (0-0.2) 11/12/18 11:00 Absolute Nucleated RBC Cancelled 11/13/18 07:07 Nucleated RBC % (auto) Cancelled 11/13/18 07:07 Platelet Estimate Cancelled 11/13/18 07:07 ESR > 90 mm/hr (0-14) H 11/10/18 07:08 PT 11.8 Seconds (9.0-12.0) 11/06/18 19:04 INR 1.2 (0.9-1.1) H 11/06/18 19:04 Sodium 136 mmol/L (136-145) 11/12/18 11:00 Potassium 4.2 mmol/L (3.5-5.1) 11/12/18 11:00 Chloride 104 mmol/L (98-107) 11/12/18 11:00 Carbon Dioxide 26 mmol/L (21-32) 11/12/18 11:00 Anion Gap 6.0 (3-11) 11/12/18 11:00 BUN 16 mg/dl (7-18) 11/12/18 11:00 Creatinine 0.77 mg/dl (0.6-1.4) 11/13/18 07:07 Est Cr Clr Drug Dosing 78.7 ml/min 11/13/18 07:07 Est GFR ( Amer) 100.7 11/13/18 07:07 Est GFR (Non-Af Amer) 86.9 11/13/18 07:07 BUN/Creatinine Ratio 22.1 (10-20) H 11/12/18 11:00 Glucose 74 mg/dl (70-99) 11/12/18 11:00 POC Lactic Acid Hank 1.59 mmol/L (0.90-1.70) 11/06/18 19:06 Calcium 8.7 mg/dl (8.5-10.1) 11/12/18 11:00 Phosphorus 2.7 mg/dl (2.5-4.9) 11/06/18 19:04 Magnesium 1.7 mg/dl (1.8-2.4) L 11/06/18 19:04 Total Bilirubin 0.3 mg/dl (0.2-1) 11/11/18 07:48 AST 10 U/L (15-37) L 11/11/18 07:48 ALT 14 U/L (12-78) 11/11/18 07:48 Alkaline Phosphatase 87 U/L (45-117) 11/11/18 07:48 Ammonia 17.0 umol/L (11-32) 11/07/18 05:24 Troponin I < 0.015 ng/ml (0-0.045) 11/07/18 10:40 C-Reactive Protein 4.63 mg/dl (0-0.29) H 11/09/18 10:13 Total Protein 6.7 gm/dl (6.4-8.2) 11/11/18 07:48 Albumin 1.8 gm/dl (3.4-5.0) L 11/11/18 07:48 Globulin 4.9 gm/dl (2.5-4.0) H 11/11/18 07:48 Albumin/Globulin Ratio 0.4 (0.9-2) L 11/11/18 07:48 TSH 0.994 uIu/ml (0.300-4.500) 11/07/18 05:24 Urine Color Dark Yellow 11/06/18 22:20 Urine Appearance Clear (Clear) 11/06/18 22:20 Urine pH 5.0 (4.5-7.5) 11/06/18 22:20 Ur Specific [place] 1.023 (1.000-1.030) 11/06/18 22:20 Urine Protein Trace (Negative) H 11/06/18 22:20 Urine Glucose (UA) Negative (Negative) 11/06/18 22:20 Urine Ketones Negative (Negative) 11/06/18 22:20 Urine Blood 1+ (Negative) H 11/06/18 22:20 Urine Nitrite Negative (Negative) 11/06/18 22:20 Urine Bilirubin Negative (Negative) 11/06/18 22:20 Urine Urobilinogen Negative (Negative) 11/06/18 22:20 Ur Leukocyte Esterase Negative (Negative) 11/06/18 22:20 Urine WBC (Auto) 0 /hpf (0-5) 11/06/18 22:20 Urine RBC (Auto) 0-4 /hpf (0-4) 11/06/18 22:20 U Hyaline Cast (Auto) 0 /lpf (0-5) 11/06/18 22:20 U Epithel Cells (Auto) 0-5 /lpf (0-5) 11/06/18 22:20 Urine Bacteria (Auto) Negative (Negative) 11/06/18 22:20 Bld Cult Staph aureus PCR Positive (Negative) A 11/10/18 09:12 Blood Culture MRSA PCR Positive (Negative) A 11/10/18 09:12 Medications Administered Current Inpatient Medications Acetaminophen (Tylenol) 650 mg PO Q6H PRN PRN Reason: Pain Stop: 12/07/18 03:08 Last Admin: 11/10/18 05:25 Dose: 650 mg Documented by: Albuterol (Combivent Respimat) 1 puffs INH QID NIR Stop: 12/12/18 12:59 Last Admin: 11/13/18 12:30 Dose: Not Given Documented by: Amiodarone HCl (Cordarone) 400 mg PO DAILY NIR Stop: 12/07/18 08:59 Last Admin: 11/13/18 08:38 Dose: 400 mg Documented by: Aspirin (Ecotrin Ectab) 81 mg PO DAILY NIR Stop: 12/07/18 08:59 Last Admin: 11/13/18 08:38 Dose: 81 mg Documented by: Atorvastatin Calcium (Lipitor) 40 mg PO DAILY NIR Stop: 12/07/18 08:59 Last Admin: 11/13/18 08:38 Dose: 40 mg Documented by: Docusate Sodium (Colace) 100 mg PO BID PRN PRN Reason: constipation Stop: 12/07/18 08:59 Fluoxetine HCl (Prozac) 40 mg PO DAILY NIR Stop: 12/07/18 08:59 Last Admin: 11/13/18 08:38 Dose: 40 mg Documented by: Heparin Sodium (Porcine) (Heparin Sodium (Porcine)) 5,000 units SQ Q12 NIR Stop: 12/07/18 08:59 Last Admin: 11/13/18 08:42 Dose: 5,000 units Documented by: Vancomycin HCl 1,000 mg/ (Sodium Chloride) 270 mls @ 125 mls/hr IV Q12H NIR Stop: 11/27/18 00:00 Last Infusion: 11/13/18 14:40 Dose: Infused Documented by: Ketoconazole (Nizoral 2%) 1 appln EXT BID [facility] Stop: 11/22/18 20:59 Last Admin: 11/13/18 08:39 Dose: 1 appln Documented by: Lactobacillus Acidophilus (Floranex) 4 tab PO DAILY NIR Stop: 12/07/18 08:59 Last Admin: 11/13/18 08:38 Dose: 4 tab Documented by: Magnesium Hydroxide (Milk Of Magnesia) 30 ml PO Q6H PRN PRN Reason: Constipation Stop: 12/07/18 05:22 Last Admin: 11/07/18 14:06 Dose: 30 ml Documented by: Metoprolol Tartrate (Lopressor) 12.5 mg PO BID [facility] Stop: 12/07/18 08:59 Last Admin: 11/13/18 08:38 Dose: 12.5 mg Documented by: Mirabegron (Myrbetriq Er) 25 mg PO DAILY [facility] Stop: 12/07/18 08:59 Last Admin: 11/13/18 08:38 Dose: 25 mg Documented by: Miscellaneous Information (Consult) 1 ea N/A UD PRN PRN Reason: Consult Stop: 12/12/18 10:46 Multivitamins (Multivitamin Tab) 1 tab PO DAILY NIR Stop: 12/07/18 08:59 Last Admin: 11/13/18 08:38 Dose: 1 tab Documented by: Multivitamins/Minerals (Caltrate Plus) 1 tab PO DAILY NIR Stop: 12/07/18 08:59 Last Admin: 11/13/18 08:38 Dose: 1 tab Documented by: Oxycodone HCl (Roxicodone Immediate Rel) 5 mg PO Q4H PRN PRN Reason: MODERATE TO SEVERE PAIN Stop: 11/21/18 03:08 Last Admin: 11/13/18 11:16 Dose: 5 mg Documented by: Pantoprazole Sodium (Protonix) 40 mg PO DAILY NIR Stop: 12/07/18 08:59 Last Admin: 11/13/18 08:38 Dose: 40 mg Documented by: Polyethylene Glycol (Miralax Powder Packet) 17 gm PO DAILY PRN PRN Reason: Constipation Stop: 12/07/18 05:21 Potassium Chloride (Klor-Con M20) 20 meq PO DAILY NIR Stop: 12/07/18 08:59 Last Admin: 11/13/18 08:38 Dose: 20 meq Documented by: Sennosides (Senokot) 8.6 mg PO QAM NIR Stop: 12/07/18 08:59 Last Admin: 11/13/18 08:38 Dose: 8.6 mg Documented by: Resident Activity Tracking Resident Involvement: Resident Care Provided Care Provided: Adult Hospital Medicine (1) Altered mental status Altered mental status type: unspecified Qualified Code(s): R41.82 - Altered mental status, unspecified
[2018-11-14] MEDS: VANCOMYCIN HCL 1,000 MG in SODIUM CHLORIDE 0.9% 250 ML IV SCH ×3 (00:32→23:48)
[2018-11-14 07:33] LABS: Creatinine Clr Calc Pharmacy 78.7 ml/min; Est GFR (African American) 100.7; Est GFR (Non-African American) 86.9
[2018-11-14] MEDS: METOPROLOL TARTRATE 25 MG TAB PO SCH ×2 (08:33→22:19)
[2018-11-14] MEDS: ATORVASTATIN 40 MG TAB PO SCH (08:36)
[2018-11-14] MEDS: MULTIVITAMIN TAB PO SCH ×2 (08:36→09:01)
[2018-11-14] MEDS: LACTOBACILLUS ACIDOPHILUS (FLORANEX) TAB PO SCH ×2 (08:36→08:59)
[2018-11-14] MEDS: AMIODARONE 200 MG TAB PO SCH (08:36)
[2018-11-14] MEDS: SENNA 8.6 MG TAB PO SCH (08:37)
[2018-11-14] MEDS: KETOCONAZOLE 2% CR 15 GM TUBE EXT SCH ×2 (08:37→22:17)
[2018-11-14] MEDS: PANTOprazole 40 MG TAB PO SCH (08:37)
[2018-11-14] MEDS: FLUOXETINE HCL 20 MG CAP PO SCH (08:37)
[2018-11-14] MEDS: IPRATROPIUM BROMIDE/ALBUTEROL respimat INH INH SCH ×5 (08:37→22:16)
[2018-11-14] MEDS: POTASSIUM CHLORIDE 20 MEQ TABCR PO SCH ×2 (08:37→09:00)
[2018-11-14] MEDS: MIRABEGRON ER 25 MG TAB PO SCH (08:37)
[2018-11-14] MEDS: CALCIUM 600MG + VIT D 400 IU TAB PO SCH ×2 (08:37→09:00)
[2018-11-14] MEDS: ASPIRIN 81 MG ECTAB PO SCH (08:37)
[2018-11-14] MEDS: HEPARIN SOD 5,000 UNIT/0.5 ML VIAL SQ SCH ×2 (08:38→22:19)
--- NOTE | 2018-11-14 11:07 | Infectious Disease Consult ---
Date of Consultation November 14, 2018 Assessment & Plan (1) MRSA bacteremia: 70-year-old male status post recent mitral valve surgery now with fever and confusion with positive blood culture for MRSA. This is very unlikely to represent contaminant, and given recent cardiac surgery would worry about possibility of prosthetic valve endocarditis or sternal infection given ongoing chest pain. Would recommend CT scan of the chest, consider transesophageal echocardiogram, and will likely need more prolonged course of IV antibiotics. Will discuss with all involved. History of Present Illness Reason for Consultation: Single positive blood culture, recent mitral valve surgery Attending Physician: Frankie Purdy MD History of Present Illness 78-year-old male with complicated past medical history including coronary artery disease, mitral valve disease, hypertension, hyperlipidemia, AAA status post repair, prior CVA, who approximately 1 month ago underwent mitral valve replacement and CABG at [facility]. He was apparently reportedly doing reasonably well until 3-4 days prior to admission, when he was noted to become increasingly confused, weak, complaining of substernal chest pain and fever. He was admitted to the hospital, and one set of blood cultures from admission have grown MRSA. Patient started on IV vancomycin, subsequent blood cultures have been no growth. Mental status has improved. Still complaining of chest pain, currently 4 out of 10 in intensity. Echocardiogram has shown well-seated prosthesis, no obvious vegetations noted. Allergies Allergy/AdvReac Type Severity Reaction Status Date / Time No Known Allergies Allergy Unverified 11/06/18 19:06 Home Medications Home Medications Medication Instructions Recorded Confirmed Type Lactobacillus acidoph-L.bulgar 1 tab PO DAILY 11/06/18 11/06/18 History [Lactinex] acetaminophen 650 mg PO Q6H PRN 11/06/18 11/06/18 History amiodarone 400 mg PO DAILY 11/06/18 11/06/18 History aspirin [Aspirin Low Dose] 81 mg PO DAILY 11/06/18 11/06/18 History atorvastatin 40 mg PO DAILY 11/06/18 11/06/18 History calcium citrate-vitamin D3 1 tab PO DAILY 11/06/18 11/06/18 History fluoxetine 40 mg PO DAILY 11/06/18 11/06/18 History furosemide 40 mg PO DAILY 11/06/18 11/06/18 History ipratropium-albuterol 3 ml INHALATION QID 11/06/18 11/06/18 History lorazepam 0.5 mg PO Q8H PRN 11/06/18 11/06/18 History metoprolol tartrate 12.5 mg PO BID 11/06/18 11/06/18 History mirabegron [Myrbetriq] 25 mg PO DAILY 11/06/18 11/06/18 History multivitamin [Daily-Kirill] 1 tab PO DAILY 11/06/18 11/06/18 History oxycodone 5 mg PO Q4H PRN 11/06/18 11/06/18 History pantoprazole 40 mg PO DAILY 11/06/18 11/06/18 History potassium chloride 20 meq PO DAILY 11/06/18 11/06/18 History Patient History Surgical History S/P MVR (mitral valve replacement) Social History Communication Ability: Effective Beliefs That Will Affect Care: None Current Living Situation: Family Feels Safe at Home: Yes Safety Concerns: Feels Safe At This Time Smoking Status: Unknown if ever smoked Hx Alcohol Use: No Hx Substance Use: No Review of Systems Constitutional: + fever, + fatigue and + weakness Eyes: no problem reported Ear, Nose, Mouth, Throat: no problem reported Respiratory: + dyspnea on exertion; no hemoptysis Cardiovascular: + chest pain Gastrointestinal: no problem reported Genitourinary (Male): no problem reported Musculoskeletal: no problem reported Integumentary: no problem reported Neurologic: no problem reported Psychiatric: no problem reported Endocrine: no problem reported Hematologic / Lymphatic: no problem reported Allergy / Immunological: no problem reported Physical Exam Vital Signs (Past 24 Hours): Last Vital Signs Temp 36.5 C 11/14/18 07:22 Pulse 75 11/14/18 07:22 Resp 18 11/14/18 07:22 BP 168/79 H 11/14/18 07:22 Pulse Ox 94 11/14/18 07:22 Constitutional: WD/WN, vitals as above comfortable; no acute distress Eyes: PERRL, conjunctivae normal, anicteric sclerae ENMT: external ear and nose normal, oropharynx normal Neck: trachea midline, no thyromegaly neck nontender Respiratory: normal respiratory effort, lungs clear to auscultation normal percussion; does not use accessory muscles Cardiovascular: Rate/Rhythm: regular rate and regular rhythm Heart Sounds: normal S1 and normal S2; no gallop, no murmur and no cardiac rub Vessels: normal peripheral pulses; no JVD Gastrointestinal (Abdomen): normal bowel sounds, soft, nontender, no hepatosplenomegaly Musculoskeletal: no cyanosis or clubbing, extremities motor strength 5/5 Head/Neck/Chest: + abnormal palpation of chest wall (Tenderness to sternal palpation) Spine: thoracic spine normal to inspection and lumbar spine normal to inspection; no cervical spinal tenderness Skin: normal turgor; no rashes and no lesions Small amount of serous drainage superior sternal wound Neurologic: patellar DTR's 2+ bilat, sensation intact no focal motor deficits Psychiatric: A+Ox3, euthymic affect Orientation: cooperative Lymphatic: no cervical or axillary lymphadenopathy no inguinal lymphadenopathy Results & Data Laboratory Results BMP 11/14/18 06:35 Creatinine 0.77 Diagnostic Findings Microbiology 11/12/18 11:00 Blood Blood Culture - Preliminary No growth to date. 11/12/18 11:00 Blood Blood Culture - Preliminary No growth to date. 11/10/18 09:12 Blood Blood Culture - Preliminary Staph aureus MRSA 11/10/18 09:21 Blood Blood Culture - Preliminary No growth to date. 11/06/18 18:50 Blood Blood Culture - Final No growth 11/06/18 19:01 Blood Blood Culture - Final No growth CT abd pelvis wo con CLINICAL HISTORY: 45 years-old Female presenting with ventral hernia repair wound dehiscence, hernia repair on degenerative. TECHNIQUE: Multidetector CT of the abdomen and pelvis was performed without the use of intravenous contrast. IV contrast: None. One or more dose lowering techniques were used consistent with the principles of ALARA (as low as reasonably achievable), including automatic exposure control, mA or kV adjustment to individual patient size, and/or use of iterative reconstruction. COMPARISON: 04/30/2017. CT DOSE (mGy.cm): The estimated cumulative dose is 1357.75 mGy.cm. FINDINGS: [facility] topogram: Cholecystectomy clips noted. Lung bases: Normal heart size. No pericardial or pleural effusion. Minimal dependent changes likely atelectasis. Liver: Normal morphology. Normal density. Biliary: No gross biliary ductal dilatation allowing for noncontrast technique. Gallbladder surgically absent. Pancreas: Moderate parenchymal atrophy. Spleen: Multiple punctate calcifications suggest a history of granulomatous disease. Splenule noted. Adrenal glands: Normal noncontrast appearance. Kidneys and ureters: Normal noncontrast appearance. No nephrolithiasis. No hydronephrosis. Normal ureters. Bladder: Normal noncontrast appearance. Pelvic organs: Normal noncontrast appearance. Bowel: Mild stool burden throughout the colon. The appendix is normal. 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 Patent distal anastomosis. No distention of the pancreaticobiliary limb. No inflammatory changes associated with the gastrojejunostomy. No bowel obstruction. Peritoneal cavity: No free fluid or intraperitoneal gas. Lymph nodes: No gross lymphadenopathy allowing for noncontrast technique. Vasculature: Atherosclerosis of the normal caliber abdominal aorta. Abdominal wall: Large gas and fluid containing collection in the anterior abdominal wall measuring up to 13.5 x 5.4 cm in maximal axial dimension. This does not appear to violate the anterior abdominal wall though there are tracts that approach the anterior abdominal wall (series 3 images [id number]). Mild surrounding inflammatory change. The collection has a somewhat thick wall. The greatest degree of inflammatory changes noted inferiorly. There is also an overlying surgical incision site. Skin thickening is present. Musculoskeletal: Degenerative changes of the spine. Sacroiliitis noted bilaterally, unchanged since at least 2017. Compression deformity of T12, unchanged since at least 2017. IMPRESSION: 1. 13.5 cm collection in the subcutaneous tissue of the anterior abdominal wall with few tracts approaching the abdominal wall musculature. No evidence of direct involvement of the abdominal wall musculature or extension through the abdominal wall musculature to the peritoneal cavity. The surrounding inflammatory change and wall thickening most pronounced along the inferior aspect of the collection raises concern for infection. The presence of gas within the collection may relate to recent incision and drainage given the associated apparent surgical incision site. Electronically signed by: Skip Anderson M.D. 11/13/2018 8:29 PM Dictated: 11/13/182019 Transcribed: 11/13/182019
[2018-11-14] MEDS ORDERED: VANCOMYCIN TROUGH ONE (11:30)
--- NOTE | 2018-11-14 13:37 | Pharmacy Report ---
Pharmacy Abx Dose Short Note - Date of Service November 14, 2018 - Assessment & Plan Assessment 78 year old M s/p recent mitral valve surgery wtih MRSA bacteremia Plan Vancomycin * Trough level of 19.3 mcg/mL is therapeutic * Continue dose of 1000 mg IV every 12 hours * Goal trough level for bacteremia/ r/o endocarditis: 15 to 20 mcg/mL * Trough level will be repeated in 24-48 hours to assess for drug accumulation Pharmacy will continue to follow and will adjust dose/frequency as necessary. Thank you.
--- NOTE | 2018-11-14 14:24 | Family Medicine Progress Note ---
Date of Service November 14, 2018 Assessment & Plan (1) Altered mental status: 78-year-old male was admitted on 07 November 2017 for altered mental status and chest pain. Altered mental status: Reportedly per initial EMS reports patient had behavioral issues, was not complying with instructions, patient was combative with his . CT head without acute changes. Normal TSH and ammonia. No cognitive deficits per daughter at baseline. Unclear initial cause but patient is improving. See bacteremia discussion below. UA was clear. Question of underlying cognitive deficit contributing to this. MRSA bacteremia: Initial 25Feb BCx no growth. Mar BCx single tube positive for MRSA. Follow-on BCx have been NGTD. Mar started on empiric vancomycin. Consulted infectious disease (see related notes) who noted concerns that this MRSA bacteremia is not a contaminant. Per their recommendations: - Ordered a CT chest with contrast to evaluate for any evidence of abscess. - Consulted cardiology for their input and likely AJITH. Chest pain: Reproducible on exam in the region of his sternotomy (related to his recent mitral valve replacement in mid-September 2018). Negative troponin and nonspecific ST changes on EKG. TTE on noted EF 50-55%, prosthetic mitral valve is well-seated, no obvious valvular vegetations, akinesis of the inferior base, and compared to prior [id number] study there were no significant changes. Anemia: Admit hemoglobin 9.7, since improved. Monitoring. Constipation: As noted on CT a/p. On senna scheduled, MiraLAX prn, and Colace prn. Patient presently denies symptomatic constipation. Right renal masses: Two complex right renal lesions measuring up to 3.[address] a/p, read as concerning for renal neoplasm. Follow on renal u/s concerning for same. Per discussion with daughter, patient is not presently pursuing treatment for this known cancer. Hiatal hernia, cholelithiasis: As seen on initial single view chest x-ray and CT a/p. Ongoing medical issues: - Hypertension: On metoprolol. - Hyperlipidemia: On atorvastatin. - CAD: On aspirin. - COPD: On scheduled albuterol. - GERD: On pantoprazole. - Depression: On Prozac. - Urinary symptoms: On Myrbetriq. - CVA, hydrocephalus. - Is on home amiodarone and potassium supplements for unknown reason. Code status: Full code. Diet: Heart healthy. DVT prophy: Heparin 5000 units every 12 hours PT/OT: Ongoing. Disbo: Admitted to [facility]. Normally lives at home with . CM onboard (see notes). - Patient previously had plans for discharge home via [facility]. However upon continued family discussions, working on overall goals of care to include what medicines/antibiotic he would be discharged on. --- From a maintenance Rx perspective, he would likely be discharged on amiodarone, Lasix, and metoprolol. (2) Chest pain: (3) History of mitral valve replacement with mechanical valve: (4) Anemia: (5) Constipation: (6) Malignant neoplasm of right kidney: (7) Hiatal hernia: (8) Cholelithiasis: (9) Hypertension: (10) Hyperlipidemia: (11) Coronary artery disease: (12) COPD (chronic obstructive pulmonary disease): (13) GERD (gastroesophageal reflux disease): (14) Depression: (15) BPH (benign prostatic hyperplasia): (16) History of CVA (cerebrovascular accident): (17) History of hydrocephalus: (18) MRSA bacteremia: Supervising Physician Co-Signing Physician Notes Patient seen and examined with the resident. Agree with history, physical exam, assessment and plan with the following updates/corrections: 78yo M w/ hx of MVR in 09/2018 who presented with altered mental status and chest pain; now with possible MRSA bacteremia. 1) MRSA bacteremia - 1/4 bottles in one set; no others currently positive. Currently on vancomycin. ID consult to assist with any actual concern for bacteremia with rec for chest CT, AJITH, and prolonged abx. Discussed with Dr. Patrick, will discuss with Dr. Mancini. 2) Altered mental status - Per report, was acute onset. Unclear etiology (infe ctious vs metabolic vs other), but is resolving at this time. Patient would like to go home and daughter would like him home with hospice. Discussed with family today and would like investigations and will discuss further. Subjective Found patient resting comfortably earlier this morning. Once again, he was not particularly conversational but did not have any noted complaints or concerns. He did say he is looking forward to getting back home. Physical Exam Vital Signs (Past 24 Hours): Last Vital Signs Temp 36.5 C 11/14/18 07:22 Pulse 75 11/14/18 07:22 Resp 18 11/14/18 07:22 BP 168/79 H 11/14/18 07:22 Pulse Ox 94 11/14/18 07:22 Physical Exam: General Appearance: Awake, alert & oriented to person, place, and partially to time, comfortable in general, NAD. Has very dry skin and a large casper. CV: +S1S2 RRR, no murmur. Sternotomy scar appears to be healing well with small amount of serous drainage superiorly. Skin does not appear particularly erythematous or edematous. Overlying dressing is mostly dry and otherwise intact. Pulm: Clear to auscultation throughout. Abdomen: +BS, soft, non-tender, non-distended. Extremities: No pedal edema or calf tenderness. Moving all extremities naturally and easily. Neuro: Difficulty with ambulation. Fatigues easily. Results & Data Laboratory Results Laboratory Results WBC 9.94 K/uL (4.8-10.8) 11/13/18 07:56 RBC 4.07 M/uL (4.7-6.1) L 11/13/18 07:56 Hgb 10.5 g/dL (14.0-18.0) L 11/13/18 07:56 Hct 34.1 % (42-52) L 11/13/18 07:56 MCV 83.8 fL (80-100) 11/13/18 07:56 MCH 25.8 pg (25-34) 11/13/18 07:56 MCHC 30.8 g/dL (32-36) L 11/13/18 07:56 RDW Std Deviation 47.6 fL (36.4-46.3) H 11/13/18 07:56 RDW Coeff of Juan C 15.6 % (11.5-14.5) H 11/13/18 07:56 Plt Count 307 K/uL (130-400) 11/13/18 07:56 MPV 9.8 fL (7.4-10.4) 11/13/18 07:56 Immature Gran % (Auto) 0.9 % 11/12/18 11:00 Neut % (Auto) 65.2 % 11/12/18 11:00 Lymph % (Auto) 21.0 % 11/12/18 11:00 [place] % (Auto) 11.0 % 11/12/18 11:00 Eos % (Auto) 1.6 % 11/12/18 11:00 Baso % (Auto) 0.3 % 11/12/18 11:00 Immature Gran # (Auto) 0.09 K/uL (0.00-0.02) H 11/12/18 11:00 Neut # (Auto) 6.73 K/uL (1.4-6.5) H 11/12/18 11:00 Lymph # (Auto) 2.16 K/uL (1.2-3.4) 11/12/18 11:00 [place] # (Auto) 1.13 K/uL (0.11-0.59) H 11/12/18 11:00 Eos # (Auto) 0.16 K/uL (0-0.5) 11/12/18 11:00 Baso # (Auto) 0.03 K/uL (0-0.2) 11/12/18 11:00 Absolute Nucleated RBC Cancelled 11/13/18 07:07 Nucleated RBC % (auto) Cancelled 11/13/18 07:07 Platelet Estimate Cancelled 11/13/18 07:07 ESR > 90 mm/hr (0-14) H 11/10/18 07:08 PT 11.8 Seconds (9.0-12.0) 11/06/18 19:04 INR 1.2 (0.9-1.1) H 11/06/18 19:04 Sodium 136 mmol/L (136-145) 11/12/18 11:00 Potassium 4.2 mmol/L (3.5-5.1) 11/12/18 11:00 Chloride 104 mmol/L (98-107) 11/12/18 11:00 Carbon Dioxide 26 mmol/L (21-32) 11/12/18 11:00 Anion Gap 6.0 (3-11) 11/12/18 11:00 BUN 16 mg/dl (7-18) 11/12/18 11:00 Creatinine 0.77 mg/dl (0.6-1.4) 11/14/18 06:35 Est Cr Clr Drug Dosing 78.7 ml/min 11/14/18 06:35 Est GFR ( Amer) 100.7 11/14/18 06:35 Est GFR (Non-Af Amer) 86.9 11/14/18 06:35 BUN/Creatinine Ratio 22.1 (10-20) H 11/12/18 11:00 Glucose 74 mg/dl (70-99) 11/12/18 11:00 POC Lactic Acid Hank 1.59 mmol/L (0.90-1.70) 11/06/18 19:06 Calcium 8.7 mg/dl (8.5-10.1) 11/12/18 11:00 Phosphorus 2.7 mg/dl (2.5-4.9) 11/06/18 19:04 Magnesium 1.7 mg/dl (1.8-2.4) L 11/06/18 19:04 Total Bilirubin 0.3 mg/dl (0.2-1) 11/11/18 07:48 AST 10 U/L (15-37) L 11/11/18 07:48 ALT 14 U/L (12-78) 11/11/18 07:48 Alkaline Phosphatase 87 U/L (45-117) 11/11/18 07:48 Ammonia 17.0 umol/L (11-32) 11/07/18 05:24 Troponin I < 0.015 ng/ml (0-0.045) 11/07/18 10:40 C-Reactive Protein 4.63 mg/dl (0-0.29) H 11/09/18 10:13 Total Protein 6.7 gm/dl (6.4-8.2) 11/11/18 07:48 Albumin 1.8 gm/dl (3.4-5.0) L 11/11/18 07:48 Globulin 4.9 gm/dl (2.5-4.0) H 11/11/18 07:48 Albumin/Globulin Ratio 0.4 (0.9-2) L 11/11/18 07:48 TSH 0.994 uIu/ml (0.300-4.500) 11/07/18 05:24 Urine Color Dark Yellow 11/06/18 22:20 Urine Appearance Clear (Clear) 11/06/18 22:20 Urine pH 5.0 (4.5-7.5) 11/06/18 22:20 Ur Specific [place] 1.023 (1.000-1.030) 11/06/18 22:20 Urine Protein Trace (Negative) H 11/06/18 22:20 Urine Glucose (UA) Negative (Negative) 11/06/18 22:20 Urine Ketones Negative (Negative) 11/06/18 22:20 Urine Blood 1+ (Negative) H 11/06/18 22:20 Urine Nitrite Negative (Negative) 11/06/18 22:20 Urine Bilirubin Negative (Negative) 11/06/18 22:20 Urine Urobilinogen Negative (Negative) 11/06/18 22:20 Ur Leukocyte Esterase Negative (Negative) 11/06/18 22:20 Urine WBC (Auto) 0 /hpf (0-5) 11/06/18 22:20 Urine RBC (Auto) 0-4 /hpf (0-4) 11/06/18 22:20 U Hyaline Cast (Auto) 0 /lpf (0-5) 11/06/18 22:20 U Epithel Cells (Auto) 0-5 /lpf (0-5) 11/06/18 22:20 Urine Bacteria (Auto) Negative (Negative) 11/06/18 22:20 Vancomycin Trough 19.3 mcg/ml (See Comment) 11/14/18 11:25 Bld Cult Staph aureus PCR Positive (Negative) A 11/10/18 09:12 Blood Culture MRSA PCR Positive (Negative) A 11/10/18 09:12 Medications Administered Current Inpatient Medications Acetaminophen (Tylenol) 650 mg PO Q6H PRN PRN Reason: Pain Stop: 12/07/18 03:08 Last Admin: 11/10/18 05:25 Dose: 650 mg Documented by: Albuterol (Combivent Respimat) 1 puffs INH QID [facility] Stop: 12/12/18 12:59 Last Admin: 11/14/18 12:55 Dose: 1 puffs Documented by: Amiodarone HCl (Cordarone) 400 mg PO DAILY [facility] Stop: 12/07/18 08:59 Last Admin: 11/14/18 08:36 Dose: 400 mg Documented by: Aspirin (Ecotrin Ectab) 81 mg PO DAILY [facility] Stop: 12/07/18 08:59 Last Admin: 11/14/18 08:37 Dose: 81 mg Documented by: Atorvastatin Calcium (Lipitor) 40 mg PO DAILY [facility] Stop: 12/07/18 08:59 Last Admin: 11/14/18 08:36 Dose: 40 mg Documented by: Docusate Sodium (Colace) 100 mg PO BID PRN PRN Reason: constipation Stop: 12/07/18 08:59 Fluoxetine HCl (Prozac) 40 mg PO DAILY [facility] Stop: 12/07/18 08:59 Last Admin: 11/14/18 08:37 Dose: 40 mg Documented by: Heparin Sodium (Porcine) (Heparin Sodium (Porcine)) 5,000 units SQ Q12 [facility] Stop: 12/07/18 08:59 Last Admin: 11/14/18 08:38 Dose: 5,000 units Documented by: Vancomycin HCl 1,000 mg/ (Sodium Chloride) 270 mls @ 125 mls/hr IV Q12H [facility] Stop: 11/27/18 00:00 Last Admin: 11/14/18 12:55 Dose: 125 mls/hr Documented by: Ketoconazole (Nizoral 2%) 1 appln EXT BID [facility] Stop: 11/22/18 20:59 Last Admin: 11/14/18 08:37 Dose: 1 appln Documented by: Lactobacillus Acidophilus (Floranex) 4 tab PO DAILY [facility] Stop: 12/07/18 08:59 Last Admin: 11/14/18 08:59 Dose: Not Given Documented by: Magnesium Hydroxide (Milk Of Magnesia) 30 ml PO Q6H PRN PRN Reason: Constipation Stop: 12/07/18 05:22 Last Admin: 11/07/18 14:06 Dose: 30 ml Documented by: Metoprolol Tartrate (Lopressor) 12.5 mg PO BID [facility] Stop: 12/07/18 08:59 Last Admin: 11/14/18 08:33 Dose: 12.5 mg Documented by: Mirabegron (Myrbetriq Er) 25 mg PO DAILY [facility] Stop: 12/07/18 08:59 Last Admin: 11/14/18 08:37 Dose: 25 mg Documented by: Miscellaneous Information (Consult) 1 ea N/A UD PRN PRN Reason: Consult Stop: 12/12/18 10:46 Multivitamins (Multivitamin Tab) 1 tab PO DAILY [facility] Stop: 12/07/18 08:59 Last Admin: 11/14/18 09:01 Dose: Not Given Documented by: Multivitamins/Minerals (Caltrate Plus) 1 tab PO DAILY [facility] Stop: 12/07/18 08:59 Last Admin: 11/14/18 09:00 Dose: Not Given Documented by: Oxycodone HCl (Roxicodone Immediate Rel) 5 mg PO Q4H PRN PRN Reason: MODERATE TO SEVERE PAIN Stop: 11/21/18 03:08 Last Admin: 11/13/18 11:16 Dose: 5 mg Documented by: Pantoprazole Sodium (Protonix) 40 mg PO DAILY [facility] Stop: 12/07/18 08:59 Last Admin: 11/14/18 08:37 Dose: 40 mg Documented by: Polyethylene Glycol (Miralax Powder Packet) 17 gm PO DAILY PRN PRN Reason: Constipation Stop: 12/07/18 05:21 Potassium Chloride (Klor-Con M20) 20 meq PO DAILY [facility] Stop: 12/07/18 08:59 Last Admin: 11/14/18 09:00 Dose: Not Given Documented by: Sennosides (Senokot) 8.6 mg PO QAM [facility] Stop: 12/07/18 08:59 Last Admin: 11/14/18 08:37 Dose: 8.6 mg Documented by: Resident Activity Tracking Resident Involvement: Resident Care Provided Care Provided: Adult Hospital Medicine (1) Altered mental status Altered mental status type: unspecified Qualified Code(s): R41.82 - Altered mental status, unspecified
[2018-11-14] MEDS ORDERED: IOVERSOL 100ml IV PRN (15:10)
--- NOTE | 2018-11-14 15:26 | CT Scan Report ---
CT chest w con CLINICAL HISTORY: 78 years-old Male presenting with eval sternal area 4 abscess, recent valve replace d. TECHNIQUE: Multidetector CT imaging of the chest was performed after the administration of intravenou s contrast. IV contrast: 93 mL of Optiray 320. One or more dose lowering techniques were used consist ent with the principles of ALARA (as low as reasonably achievable), including automatic exposure cont rol, mA or kV adjustment to individual patient size, and/or use of iterative reconstruction. COMPARISON: Chest x-ray from 11/06/2018. CT DOSE (mGy.cm): The estimated cumulative dose is 621.55 mGycm. FINDINGS: Final Coat Sprayer topogram: Median sternotomy wires noted. Soft tissues: Normal thyroid and thoracic inlet. Prominent right axillary lymph node measuring up to 6 mm in short axis (series 4 image 163), nonspecific. No supraclavicular or hilar lymphadenopathy. Mu ltiple scattered subcentimeter mediastinal lymph nodes, nonspecific. Tortuosity and atherosclerosis o f the thoracic aorta. Potential short segment dissection of the origin and proximal left subclavian a rtery. Postsurgical changes of median sternotomy with coronary artery bypass grafting. The sternotomy site demonstrates surrounding soft tissue thickening and inflammatory change. Nonunion of the sterno jesus. Multichamber enlargement of the heart. Coronary artery, aortic valve, and mitral annular calcif ication. Trace pericardial effusion and trace left pleural effusion. Large hiatal hernia. Numerous we ll-defined hypodensities in the liver likely hepatic cysts. Lungs and airways: No pneumothorax. Central airways patent. Small tracheal diverticulum suggested in the upper trachea. Pulmonary arteries are not significantly enlarged relative to adjacent bronchi. No interlobular septal thickening. Moderate upper lobe predominant centrilobular emphysema. Extensive b ibasilar volume loss and consolidation consistent with atelectasis. Musculoskeletal: Nonunion of the median sternotomy with associated inflammatory change. The sternotom y margins are eroded suggesting osteolysis. Mild degenerative changes of the spine. IMPRESSION: 1. 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 No well-defined abscess. 2. Postsurgical changes of coronary artery bypass grafting. 3. Emphysema. 4. Large hiatal hernia. Electronically signed by: Skip Anderson M.D. 11/14/2018 3:25 PM
[2018-11-15] MEDS: ASPIRIN 81 MG ECTAB PO SCH (09:22)
[2018-11-15] MEDS: MIRABEGRON ER 25 MG TAB PO SCH (09:22)
[2018-11-15] MEDS: LACTOBACILLUS ACIDOPHILUS (FLORANEX) TAB PO SCH (09:22)
[2018-11-15] MEDS: POTASSIUM CHLORIDE 20 MEQ TABCR PO SCH (09:22)
[2018-11-15] MEDS: SENNA 8.6 MG TAB PO SCH (09:22)
[2018-11-15] MEDS: FLUOXETINE HCL 20 MG CAP PO SCH (09:22)
[2018-11-15] MEDS: ATORVASTATIN 40 MG TAB PO SCH (09:22)
[2018-11-15] MEDS: MULTIVITAMIN TAB PO SCH (09:23)
[2018-11-15] MEDS: METOPROLOL TARTRATE 25 MG TAB PO SCH (09:23)
[2018-11-15] MEDS: PANTOprazole 40 MG TAB PO SCH (09:23)
[2018-11-15] MEDS: CALCIUM 600MG + VIT D 400 IU TAB PO SCH (09:23)
[2018-11-15] MEDS: AMIODARONE 200 MG TAB PO SCH (09:23)
[2018-11-15] MEDS: HEPARIN SOD 5,000 UNIT/0.5 ML VIAL SQ SCH (09:24)
[2018-11-15] MEDS: IPRATROPIUM BROMIDE/ALBUTEROL respimat INH INH SCH ×3 (09:24→17:10)
[2018-11-15] MEDS: KETOCONAZOLE 2% CR 15 GM TUBE EXT SCH (09:24)
[2018-11-15 09:58] LABS: Basophils # (auto) 0.03 K/uL (0-0.2); Basophils % (auto) 0.3 %; Eosinophils # (auto) 0.14 K/uL (0-0.5); Eosinophils % (auto) 1.5 %; Hematocrit (blood only) 31.7 % (42-52); Hemoglobin 9.8 g/dL (14.0-18.0); Immature Granulocytes # (auto) 0.08 K/uL (0.00-0.02); Immature Granulocytes % (auto) 0.9 %; Lymphocytes # (auto) 2.17 K/uL (1.2-3.4); Lymphocytes % (auto) 23.3 %; Mean Corpuscular Hgb Conc 30.9 g/dL (32-36); Mean Corpuscular Volume 83.6 fL (80-100); Mean Platelet Volume 9.8 fL (7.4-10.4); Monocytes # (auto) 1.03 K/uL (0.11-0.59); Monocytes % (auto) 11.1 %; Neutrophils # (auto) 5.85 K/uL (1.4-6.5); Neutrophils % (auto) 62.9 %; Platelet Count 308 K/uL (130-400); RDW Coefficient of Variation 15.8 % (11.5-14.5); RDW Standard Deviation 47.9 fL (36.4-46.3); Red Blood Count 3.79 M/uL (4.7-6.1)
[2018-11-15 10:14] LABS: BUN Creatinine Ratio 17.3 (10-20); Calcium 8.5 mg/dl (8.5-10.1); Est GFR (African American) 82.2; Est GFR (Non-African American) 70.9; Potassium 4.1 mmol/L (3.5-5.1)
--- NOTE | 2018-11-15 10:17 | Discharge Summary ---
Date of Service November 15, 2018 Admission HPI Per Admitting Provider Mr. Robertson is a 78 year old male with a past medical history of recent mitral valve replacement, AAA s/p repair, COPD, renal cell carcinoma, hx of CVA, depression and normal pressure hydrocephalus who presented to [facility] emergency department due to altered mental status and chest pain. He recently left [facility] 35 days earlier than he was meant to. Per review of chart, he exhibited multiple behavioural issues and would not comply with instructions, frequently throwing himself onto the floor. He was reportedly also combative with his . Of note, he has had a recent mitral valve replacement approximately 4 weeks ago. Per the patient, he states he has chest pain over the incision site on his chest. He states that it is worst with movement and reproducible upon palpation. He denies fever, chills, shortness of breath, diaphoresis, or radiation of the pain. He has no other complaints. Admission Exam Per Admitting Provider Constitutional: WD/WN, vitals as above + disheveled and cooperative; not in distress Eyes: PERRL, conjunctivae normal, anicteric sclerae ENMT: external ear and nose normal, oropharynx normal Nose: + dry nasal mucous membranes Respiratory: normal respiratory effort, lungs clear to auscultation Cardiovascular: Rate/Rhythm: regular rate and regular rhythm scar from recent midline sternotomy Gastrointestinal (Abdomen): Percussion/Palpation: + abdomen tender (mildly tender throughout abdomen) and abdomen soft; no guarding and abdomen not rigid Skin: no rashes, warm and dry Neurologic: awake States that we are in [place] in the year 2020 when asked. Oriented to person only. Gross motor exam normal, no weakness noted in upper or lower extremities. Principal Diagnosis Altered mental status, MRSA bacteremia, chest pain and osteomyelitis Discharge Exam General Appearance: Awake, alert & oriented to person, place, and partially to time, comfortable in general, NAD. Has very dry skin and a large casper. CV: +S1S2 RRR, no murmur. Sternotomy scar inferiorly appears to be healing well but superior aspect has some serous drainage. Pulm: Clear to auscultation throughout. Abdomen: +BS, soft, non-tender, non-distended. Extremities: No pedal edema or calf tenderness. Moving all extremities naturally and easily. Neuro: Difficulty with ambulation. Fatigues easily. Discharge Data Allergies Allergy/AdvReac Type Severity Reaction Status Date / Time No Known Allergies Allergy Unverified 11/06/18 19:06 Consultations Infectious disease consultation assessment and plan on 14 November 2018 70-year-old male status post recent mitral valve surgery now with fever and confusion with positive blood culture for MRSA. This is very unlikely to represent contaminant, and given recent cardiac surgery would worry about possibility of prosthetic valve endocarditis or sternal infection given ongoing chest pain. Would recommend CT scan of the chest, consider transesophageal echocardiogram, and will likely need more prolonged course of IV antibiotics. Will discuss with all involved. Ordered Studies Transthoracic echocardiogram on 12 November 2018 Left ventricular systolic function is normal. Akinesis of inferior base. Ejection fraction of 50-55%. The prosthetic mitral valve is well seated. No obvious valvular vegetations. Compared with study dated November 08, 2018, no significant change. CT head noncontrast on 06 November 2018 IMPRESSION: There is no hemorrhage, mass effect, or evidence of acute territorial ischemia by CT criteria. Single view chest x-ray on 06 November 2018 IMPRESSION: 1. Cardiomegaly without radiographic evidence of congestive failure. 2. Hiatal hernia. 3. Suspect trace left pleural effusion. CT abdomen pelvis with IV contrast on 06 November 2018 IMPRESSION: 1. Streak and motion compromised examination. 2. There is rectosigmoid fecal impaction and moderate to severe constipation. No bowel obstruction is identified. 3. Cholelithiasis. 4. There are 2 complex right renal lesions which measure up to 3.0 cm. The appearance is concerning for renal neoplasm. Correlation with any prior outside imaging studies is recommended. 5. There are small nonobstructing renal calculi. 6. There are trace pleural effusions with bibasilar consolidation. This could present atelectasis versus an infectious/inflammatory pneumonitis and clinical correlation will be required. 7. Cardiomegaly. 8. Large hiatal hernia. 9. The patient is status post aortobiiliac stent graft repair of an infrarenal abdominal aneurysm. The residual aneurysm sac measures 4.4 x 5.2 cm. 10. There is stranding identified around the sternotomy site, possibly related to recent surgery. Clinical correlation will required. 11. Additional findings as above. Right upper quadrant ultrasound on 08 November 2018 IMPRESSION: 1. Heterogeneous liver parenchyma may suggest underlying fibrosis or steatosis. 2. Cholelithiasis. No convincing evidence of cholecystitis. 3. Solid 2.5 cm right renal mass. This is most concerning for renal cell carcinoma. Urologic consultation advised. This would be best demonstrated with contrast-enhanced renal MRI. CT chest with contrast on 14 November 2018 IMPRESSION: 1. 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 No well-defined abscess. 2. Postsurgical changes of coronary artery bypass grafting. 3. Emphysema. 4. Large hiatal hernia. Hospital Course (1) Altered mental status: 78-year-old male was admitted on 07 November 2018 for altered mental status and chest pain. Altered mental status: Reportedly per initial EMS reports patient had behavioral issues, was not complying with instructions, and patient was combative with his . CT head without acute changes. Normal TSH and ammonia. No cognitive deficits per daughter at baseline. Unclear initial cause but patient seems to have returned to his baseline. See bacteremia discussion below. UA was clear. Question of underlying cognitive deficit contributing to this. MRSA bacteremia: Initial 25Feb BCx no growth. 01Mar BCx single tube positive for MRSA. Follow-on 03Mar BCx have been NGTD. 04Mar started on empiric vancomycin. Consulted infectious disease (see related notes) who noted concerns that this MRSA bacteremia is not a contaminant. 05Mar CT chest is concerning for osteomyelitis. Discussed case with cardiology and they noted he may be very difficult to see additional information on a AJITH given previous [id number] TTE results (see report) not suggestive of valvular vegetations. Patient himself says he does not want anymore procedures anyway. - Ultimately, plan is for patient to go home on hospice, so antibiotics will be discontinued per their wishes. Chest pain, possible osteomyelitis: Reproducible on exam in the region of his sternotomy (related to his recent mitral valve replacement in mid-September 2018). Negative troponin and nonspecific ST changes on EKG. CT chest is concerning for non-union and osteomyelitis. Discussed the same with patient and family, including that this will likely worsen and contribute to his ultimate . - Plan is for patient to go home on hospice, so antibiotics will be discontinued per their wishes. Anemia: Admit hemoglobin 9.7, since improved to mid-10's. Constipation: As noted on CT a/p. On senna scheduled, MiraLAX prn, and Colace prn. - Could continue as outpatient prn if provides some comfort. Right renal masses: Per discussion with daughter, patient is not presently pursuing treatment for this known cancer. Hiatal hernia, cholelithiasis: As seen on initial single view chest x-ray as well as CT scans of the chest & a/p. Ongoing medical issues (was on these medications pre-admit): - Hypertension: On metoprolol. - Hyperlipidemia: On atorvastatin. - CAD: On aspirin. - COPD: On scheduled albuterol. - GERD: On pantoprazole. - Depression: On Prozac. - Urinary symptoms: On Myrbetriq. - CVA, hydrocephalus. - Is on home amiodarone and potassium supplements for unknown reason. Disposition: Plan is for discharge home via [address] [place] [id number] hospice. On discussion in person in patient's room on morning of discharge, everyone (patient + + daughter) were in agreement with this. - For comfort measures, will maintain on amiodarone, Lasix, metoprolol, Combivent, lorazepam prn, and oxycodone prn. This will likely be modified by their home hospice team. (2) Chest pain: (3) History of mitral valve replacement with mechanical valve: (4) Anemia: (5) Constipation: (6) Malignant neoplasm of right kidney: (7) Hiatal hernia: (8) Cholelithiasis: (9) Hypertension: (10) Hyperlipidemia: (11) Coronary artery disease: (12) COPD (chronic obstructive pulmonary disease): (13) GERD (gastroesophageal reflux disease): (14) Depression: (15) BPH (benign prostatic hyperplasia): (16) History of CVA (cerebrovascular accident): (17) History of hydrocephalus: (18) MRSA bacteremia: (19) Osteomyelitis: Total Time Total Time Spent Total Time Spent (In Minutes): > 30 min Discharge Plan Discharge Items Patient Disposition: Hospice - Home Reason For Visit: AMS, CHEST PAIN Discharge Diagnosis: Altered mental status, MRSA bacteremia, osteomyelitis Condition: Fair Discharge Goals: Decrease discomfort Activity: Per 'Additional Instructions' section Non-emergency contact: Primary Care Provider Call non-emergency contact if: you have any medication questions Diet: Heart Healthy Addtl Provider Instructions: You were admitted to the hospital on November 07, 2018 for some changes in your mental status as well as chest pain. While in the hospital we evaluated the following issues: Altered mental status: After a lot of testing, it is unclear exactly what the cause of this was. However, at this point it seems you have returned to your normal self. Chest pain, likely osteomyelitis: Your pain seems to be primarily around the surgical site for your heart surgery. After a CT scan was done, there is concerned that there is an infection of the sternal bone there (osteomyelitis) which is causing the pain. Off antibiotics, this pain may get worse as the infection continues. Please use the oxycodone and work with hospice to be sure your pain is under control and you are comfortable. MRSA bacteremia: As part of the hospital testing, there was some evidence that a bacteria called MRSA was growing in your blood. The biggest concern with this is that the bacteria could attached to your artificial heart valve. It is very difficult to remove this bacteria if that happens. Kidney cancer: As you already know, the CT scans here showed that you have masses on her kidney concerning for cancer. Per your wishes, we have not worked towards further evaluation or treatment of this. Multiple medical issues: As often happens as we get older, you have multiple different ongoing medical issues to include high blood pressure, heart disease, COPD, acid reflux due to a large hernia in your abdomen, amongst other issues. After discussions with you and your family, at this time you are pursuing home hospice. Thus we will not continue anymore antibiotics. They will be able to do an excellent job of maintaining your medications to keep you comfortable as well as trying to stay as pain-free as possible. Please work with their doctors and medical teams if you have any ongoing concerns or medical questions. Prescriptions: Continued furosemide 40 mg Tablet 40 mg PO DAILY RF: 0 acetaminophen 325 mg Tablet 650 mg PO Q6H PRN (Reason: Pain) RF: 0 ipratropium-albuterol 0.5 mg-3 mg(2.5 mg base)/3 mL Solution For Nebulization 3 ml INHALATION QID RF: 0 amiodarone 400 mg Tablet 400 mg PO DAILY RF: 0 metoprolol tartrate 25 mg Tablet 12.5 mg PO BID RF: 0 lorazepam 0.5 mg tablet 0.5 mg PO Q8H PRN (Reason: Anxiety) Qty: 20 RF: 0 oxycodone 5 mg Tablet 5 mg PO Q4H PRN (Reason: MODERATE TO SEVERE PAIN) Qty: 30 RF: 0 Discontinued multivitamin [Daily-Kirill] Tablet 1 tab PO DAILY RF: 0 fluoxetine 40 mg Capsule 40 mg PO DAILY RF: 0 atorvastatin 40 mg Tablet 40 mg PO DAILY RF: 0 aspirin [Aspirin Low Dose] 81 mg Tablet,Delayed Release (Dr/Ec) 81 mg PO DAILY RF: 0 potassium chloride 20 mEq Tablet,Er Particles/Crystals 20 meq PO DAILY RF: 0 pantoprazole 40 mg Tablet,Delayed Release (Dr/Ec) 40 mg PO DAILY RF: 0 calcium citrate-vitamin D3 250 mg calcium- 200 unit Tablet 1 tab PO DAILY RF: 0 Lactinex 1 million cell Tablet,Chewable 1 tab PO DAILY RF: 0 Myrbetriq 25 mg Tablet Extended Release 24 Hr 25 mg PO DAILY RF: 0 Stand-Alone Forms: [facility] Discharge Orders: Discharge Order (Routine); Ordered 11/15/18 Ordered By: Mert Best Admission Data Admit Date/Time: 11/07/18 01:31 Attending Provider: Frankie Purdy Admit Provider: Lex Bear Primary Care Provider: Carlyle Smiley Other Providers: IRB Approved Study,Bc ; Frankie Purdy ; Severo Mancini ; Alberto Patrick Service: Medical Other Interventions: Discharge Summary Assessment (RN) Last Done: 11/15/18 12:03 Supervising Physician Co-Signing Physician Notes Patient seen and examined with the resident. Agree with history, physical exam, assessment and plan with the following updates/corrections: 78yo M w/ hx of MVR in 09/2018 who presented with altered mental status and chest pain; now with possible MRSA bacteremia. 1) MRSA sternal osteomyelitis - After positive culture, chest CT was done which showed likely sternal osteomyelitis. Discussed with patient and family, and he elected for hospice instead of treatment with antibiotics or surgery. All parties aware that this will prove to be a fatal infection without treatment. Counseled on pain treatment given his chest will likely become more painful with the progressing infection. 2) Altered mental status - Per report, was acute onset. Likely due to infection. Will have to monitor on the progressing infection. Resident Activity Tracking Resident Involvement: Resident Care Provided Care Provided: Adult Hospital Medicine
[2018-11-15] MEDS ORDERED: VANCOMYCIN TROUGH ONE (11:30)
[2018-11-15] MEDS: VANCOMYCIN HCL 1,000 MG in SODIUM CHLORIDE 0.9% 250 ML IV SCH (13:15)
--- NOTE | 2018-11-16 13:23 | Coding Query ---
CODING QUERY To promote full compliance with coding requirements relating to patient care, provider participation is requested in all cases of tax agent uncertainty. Please assist us with the question(s) below: Coding Question(s): Please specify below, in your clinical opinion, regarding the infection, MRSA Sternal Osteomyelitis, that is documented on Discharge Summary in this patient with recent surgery in the sternal area. ( x ) This is certainly a post-operative infection complication resulting from the recent surgery ( ) This is Not a Postoperative Infection complication Physician's Response(s): Thank you Madalyn Betts Principal Diagnosis: "that condition established after study, to be chiefly responsible for occasioning the admission of the patient to the hospital for care." Co-Existing Principal Diagnosis: "when two or more diagnoses equally meet the criteria for principal diagnosis as determined by the circumstances of admission, diagnostic work up, and/or therapy provided, and the Alphabetic Index, Tabular List, or another coding guideline does not provide sequencing direction, any one of the diagnoses may be sequenced first." "When the physician has documented what appears to be a current diagnosis in the body of the record, but has not included the diagnosis in the final diagnostic statement, the physician should be asked whether the diagnosis should be added." (Source Coding Clinic 2 QTR90. p3-4) ZENY
== END 2018-11-15 18:00 | disposition hospice, home (50) | DRG 863 ==
LOC: ED 17:13 → SUATTDRO 11-07 01:31 → 4W 11-07 01:31